=== PATIENT | female | born 1945 | race Caucasian/White ===

== ENCOUNTER → 2018-07-09 09:49 | Outpatient (CLI) | payer MEDICARE, SELFPAY ==
[2018-01-21 08:55] VITALS: BMI 23.1
[2018-02-18 09:07] VITALS: BMI 23.1
--- NOTE | 2018-07-10 11:17 | PFT ---
INTRODUCTION: The patient is a 73-year-old female that presents for pulmonary function testing secondary to a diagnosis of asthma. Respiratory therapy reports good patient effort. Bronchodilators were used during testing. INTERPRETATION: Forced expiration spirometry demonstrates the presence of a mild large airways obstructive ventilatory defect. There was no significant response to aerosolized bronchodilators. Spirograms are of good quality and do not plateau indicating slow emptying of the lungs. Body plethysmography was performed and reveals lung volumes to be within normal limits. Diffusing capacity by single breath CO is also within normal limits. There has been stability in the patient's PFTs dating back to July 2017. IMPRESSION: These pulmonary function studies demonstrate the presence of an irreversible mild large airways obstructive ventilatory defect. Lung volumes and diffusing capacity are preserved.
== END ==
PROVIDERS: Family Provider Family Medicine; PCP Family Medicine; Referring Provider Nurse Practitioner Acute Care; Visit Provider Nurse Practitioner Acute Care
DX: J45.909 Unspecified asthma, uncomplicated (principal)
CPT/HCPCS: 94060; 94726; 94729

== ENCOUNTER 2018-11-29 05:26 | Day surgery (SDC) | payer MEDICARE, SELFPAY ==
[2018-02-18 09:07] VITALS: BMI 23.1
[2018-09-10 08:14] VITALS: BMI 23.6
[2018-11-29] VITALS (10 sets, daily range): BP systolic 83–144; BP diastolic 44–68; PULSE 60–75; RESP 16; TEMP 36.2–36.6; O2SAT 95–100; BMI 22.9
--- NOTE | 2018-11-29 06:00 | PCM.HP.STD ---
Problem List (1) Personal history of colonic polyps Status: Acute History of Present Illness Date of Admission: 11/29/18 The patient is a 73 year old F who I saw back in the office in September. She presented at that time because she has a personal history of colon polyps. October 2017 she had been diagnosed with breast cancer. She lost track of her colonoscopies. She has had 3 previous colonoscopies. Most recent was November 12, [address] Joseph Hong. A cecal tubular adenoma was resected. She also has diverticulosis. She presents now for surveillance colonoscopy Past Medical History Past Medical History (Chronic Problems): Chronic Problems (Last Reviewed 09/10/18 @ 08:13 by Kim Meneses) Seasonal allergies (Chronic) Mitral valve prolapse (Chronic) Arthritis (Chronic) High cholesterol (Chronic) Dyspnea (Chronic) Cough (Chronic) Asthma (Chronic) Medical History: Medical History (Last Reviewed 09/10/18 @ 08:13 by Kim Meneses) Personal history of colonic polyps (Acute) Z86.010 History of breast cancer (Resolved) Z85.3 Thrush, oral (Acute) B37.0 Seasonal allergies (Chronic) J30.2 Mitral valve prolapse (Chronic) I34.1 Arthritis (Chronic) M19.90 High cholesterol (Chronic) E78.00 Dyspnea (Chronic) R06.00 Cough (Chronic) R05 Asthma (Chronic) J45.909 Allergies codeine Allergy (Severe, Verified 09/10/18 08:14) cyclobenzaprine [From Flexeril] Allergy (Severe, Verified 09/10/18 08:14) Penicillins Allergy (Severe, Verified 09/10/18 08:14) pineapple Allergy (Severe, Verified 09/10/18 08:14) Home Medications: Ambulatory Orders Medication Instructions Recorded Lactobacillus acidophilus capsule 10 mg PO QDAY 07/23/17 aspirin 81 mg tablet,delayed 81 mg PO QDAY 07/23/17 release calcium carbonate 500 mg (1,250 1 tab PO BID 07/23/17 mg)-vitamin D3 200 unit tablet fish oil-dha-epa 1,200 mg-144 1 cap PO DAILY 07/23/17 mg-216 mg capsule glucosamine OYw-ekd-oktfnurtzgc 1 tab PO DAILY 07/23/17 500 mg-167 mg-400 mg tablet montelukast 10 mg tablet 10 mg PO QHS 07/23/17 multivitamin,po-emix-fvwcwizx 1 tab PO QDAY 07/23/17 tablet pravastatin 40 mg tablet 40 mg PO QHS 07/23/17 sour baez extract 1,000 mg 1,000 mg PO DAILY 07/23/17 capsule verapamil ER (SR) 120 mg 120 mg PO QDAY 07/23/17 tablet,extended release Fluticasone/Salmeterol [Advair 1 ea IH BID 01/21/18 100-50 Diskus] Levocetirizine Dihydrochloride 5 mg PO DAILY 01/21/18 [Xyzal] Anastrozole [Arimidex] 1 mg PO DAILY 04/18/18 albuterol sulfate 90 mcg/actuation 90 mcg INHALATION Q4H PRN #1 ea 07/24/18 breath activated powder inhaler Surgical History: Surgical History (Last Reviewed 09/10/18 @ 08:13 by Kim Meneses) History of lumpectomy of left breast (Acute) Z98.890 10/2017 History of foot surgery (Resolved) Z98.890 Left footX2 History of hysterectomy (Resolved) Z98.890, Z90.710 1997 History of appendectomy (Resolved) Z98.890, Z90.49 1966 Smoking Status: Never smoker Review of Systems Constitutional: Denies: Anorexia HEENT: Denies: Difficulty Swallowing Cardiovascular: Denies: Chest Pain Respiratory: Denies: Cough, Hemoptysis Gastrointestinal: Denies: Abdominal Pain Endocrine: Denies: Change in Body Habitus VTE Information - Inpt Only VTE Present on Admission: No - Physical Exam General: Alert, Oriented x3, Cooperative, No apparent distress HEENT: Atraumatic Neck: Supple Lungs: Clear to auscultation Cardiovascular: Regular rate, Regular Rhythm Abdomen: Bowel Sounds Present, Soft, Non Tender Psych/Mental Status: Normal Affect Vital Signs Temp Pulse Resp BP Pulse Ox 97.9 F 73 16 116/68 100 11/29/18 05:46 11/29/18 05:46 11/29/18 05:46 11/29/18 05:46 11/29/18 05:46 Oxygen Delivery Method Room Air Weight: 138 lb Body Mass Index (BMI) 22.9 Assessment/Plan All Active Problems (Last Reviewed 09/10/18 @ 08:13 by Kim Meneses) Personal history of colonic polyps (Acute) History of lumpectomy of left breast (Acute) History of breast cancer (Resolved) Thrush, oral (Acute) History of foot surgery (Resolved) History of hysterectomy (Resolved) History of appendectomy (Resolved) Patient with a personal history of colon polyps. Recommend colonoscopy with possible biopsy or polypectomy is indicated. She has had an opportunity to ask and have questions answered. We will proceed as noted. Kumar Mixon M.D., F.A.C.S.
--- NOTE | 2018-11-29 06:52 | OP.ENDO_ITS ---
11/29/2018 Ashkan Ortiz Md Re : Colonoscopy procedure for Juhi Rossi Dear Angel This procedure was performed on Thursday, November 29, 2018. My impressions and recommendations are as follows: Impressions : - Hemorrhoids found on perianal exam. - Diverticulosis in the sigmoid colon. - The examination was otherwise normal. - No specimens collected. Recommendations : - Discharge patient to home. - Resume previous diet. - Continue present medications. - Repeat colonoscopy in 5 years for surveillance. My findings are described in the full procedure note, which is enclosed. If I can be of further assistance, please feel free to contact me at Doctor phone number(s): Work: . Sincerely, Kumar Mixon MD 11/29/2018 6:52:14 AM This report has been signed electronically.
== END 2018-11-29 08:21 | disposition home or self-care (01) ==
LOC: EN 05:26 → AC 05:27
PROVIDERS: Family Provider Family Medicine; PCP Family Medicine; Referring Provider Surgery; Visit Provider Surgery
PROC: 0DJD8ZZ Inspection of Lower Intestinal Tract, Via Natural or Artificial Opening Endoscopic (ICD-10-PCS; CPT 45378; principal; 2018-11-29 06:25)
DX: Z12.11 Encounter for screening for malignant neoplasm of colon (principal); K57.30 Diverticulosis of large intestine without perforation or abscess without bleeding; K64.9 Unspecified hemorrhoids; I34.1 Nonrheumatic mitral (valve) prolapse; E78.00 Pure hypercholesterolemia, unspecified; M19.90 Unspecified osteoarthritis, unspecified site; J45.909 Unspecified asthma, uncomplicated; Z79.82 Long term (current) use of aspirin; Z79.899 Other long term (current) drug therapy; Z86.010 Personal history of colon polyps; Z85.3 Personal history of malignant neoplasm of breast
CPT/HCPCS: G0105; 99152; 99153; J7120

== ENCOUNTER → 2019-01-23 08:56 | Outpatient (CLI) | payer MEDICARE, SELFPAY ==
[2018-02-18 09:07] VITALS: BMI 23.1
[2019-01-08 08:41] VITALS: BMI 23.8
--- NOTE | 2019-01-23 09:03 | BI_ITS ---
MAMMOGRAPHY - UNILATERAL DIAGNOSTIC: LEFT BREAST REASON FOR EXAM: Female, 73 years old. Left breast pain at the surgical site. PERTINENT HISTORY: Personal history of breast cancer. Status post left lumpectomy. TECHNIQUE: Digital unilateral breast nessa (3D mammographic acquisition) in the CC and MLO projections. 2-D mediolateral oblique (MLO) and craniocaudad (CC) views of both breasts were obtained. CAD: Full Field Digital Mammography with Computer Added Detection was performed. COMPARISON: Comparison is made with prior outside examination dated September 03, 2018. FINDINGS: Breast Composition: There are scattered areas of fibroglandular density. Surgical clips are seen in the inferior medial anterior aspect of the left breast and keep with history of prior lumpectomy. At this time, there is evidence of increased density at the surgical site with this skin thickening overlying the biopsy site. Correlation with ultrasound is recommended. No other significant abnormalities are identified. BI/DIAG MAMM W/CAD, UNILAT IMPRESSION: Status post lumpectomy in the inferior medial aspect of the left breast. Since prior study, there has been increased density at the operative site. Correlation with ultrasound is recommended. ASSESSMENT CATEGORY: BIRADS Category 0: Incomplete. Need additional imaging evaluation. A letter regarding these results will be sent to the patient by the facility within 30 days. Approximately 10% of breast cancers are not detected by mammography. A normal mammogram should not delay biopsy of a clinically suspicious abnormality. Electronically Signed: Cristhian Lee, at 11:25 EDT , Service support ,
--- NOTE | 2019-01-23 09:06 | US_ITS ---
STUDY: ULTRASOUND BREAST - LEFT REASON FOR EXAM: Female, 73 years old. Pain in the left breast. TECHNIQUE: Axial and longitudinal images of the LEFT breast were performed with a high resolution ultrasound transducer. COMPARISON: Comparison is made with prior mammogram done earlier in the day. FINDINGS: LEFT Breast: The incision site was examined by ultrasound. No solid or cystic mass lesion is seen. Mild edematous changes. US/Breast Limited Unilateral IMPRESSION: Mild edematous changes at the surgical site. No sonographic solid or cystic mass lesion is seen. ASSESSMENT CATEGORY: BIRADS Category 2: Benign. A letter regarding these results will be sent to the patient by the facility within 30 days. Electronically Signed: Cristhian Lee, at 11:25 EDT , Service support ,
== END ==
PROVIDERS: Family Provider Family Medicine; PCP Family Medicine
DX: N64.4 Mastodynia (principal); Z85.3 Personal history of malignant neoplasm of breast
CPT/HCPCS: 76642; 77061; 77065; G0279

== ENCOUNTER → 2019-07-08 07:54 | Outpatient (CLI) | payer MEDICARE, SELFPAY ==
[2018-02-18 09:07] VITALS: BMI 23.1
[2019-01-08 08:41] VITALS: BMI 23.8
[2019-05-30 12:51] VITALS: BMI 23.8
--- NOTE | 2019-07-08 10:14 | PFTCOMP ---
COMPLETE PULMONARY FUNCTION TEST INTERPRETATION Brief HPI: Patient is a 74 year old female, currently under the care of myself, who presents to [facility] for complete pulmonary function tests secondary to diagnosis of asthma. Respiratory therapist reports good effort and reproducible results. Interpretation: Forced expiration spirometry shows a mild large airways obstructive ventilatory defect with an FEV1 of 105% predicted. There is no significant bronchodilator response by strict ATS criteria. Spirograms are of good quality and plateau slowly, indicating slowly emptying areas of the lungs. The respiratory flow volume loop shows decreased expiratory flow rates at all lung volumes consistent with airway obstruction. Lung volumes by body plethysmography show an elevated total lung capacity at 6.02 L, 120% predicted. All other lung volumes are increased symmetrically. Diffusion capacity by carbon monoxide is normal at 91% predicted. The airway resistance is normal. Compared to previous pulmonary function tests from 07/09/2018, there has been no significant change. Impression: Irreversible mild large airways obstructive ventilatory defect resulting in hyperinflation.
== END ==
PROVIDERS: Family Provider Family Medicine; PCP Family Medicine; Referring Provider Nurse Practitioner Acute Care; Visit Provider Nurse Practitioner Acute Care
DX: J45.909 Unspecified asthma, uncomplicated (principal)
CPT/HCPCS: 94060; 94726; 94729

== ENCOUNTER → 2020-05-18 08:20 | Outpatient (CLI) | payer MEDICARE, SELFPAY ==
[2018-02-18 09:07] VITALS: BMI 23.1
[2020-03-16 09:28] VITALS: BMI 22.6
--- NOTE | 2020-05-18 08:25 | BD_ITS ---
STUDY: DUAL ENERGY X-RAY ABSORPTIOMETRY / DXA REASON FOR EXAM: Female, 75 years old. MOP MAN- SURGICAL AT 52 -- CURRENTLY ON ANASTROZOLE FOR BREAST CANCER -- USES STEROID INHALER DAILY -- HX OF TAKING FOSAMAX -- DOES MODERATE AMOUNT OF EXERCISE -- AIDAN OF 1.25 INCHES TECHNIQUE: Bone Mineral Density (BMD) measurements of lumbar spine and bilateral hips were obtained. COMPARISON: None. FINDINGS: Lumbar Spine (L1-L4): g/cm2 (1.112) / T-score (-0.6) / Z-score (1.1) Findings are suggestive of normal bone density with a low fracture risk. Increased kyphosis. Left Femur Total: g/cm2 (0.761) / T-score (-2.0) / Z-score (-0.3) Left Femoral Neck: g/cm2 (0.811) / T-score (-1.6) / Z-score (0.2) Right Femur Total: g/cm2 (0.635) / T-score (-3.0) / Z-score (-1.3) Right Femoral Neck: g/cm2 (0.675) / T-score (-2.6) / Z-score (-0.8) BD/Dexa Bone Density Study IMPRESSION: The patient is considered osteoporotic as outlined below according to World Arvind Organization (WHO) criteria with a high fracture risk. Reference Information: The T-score is the number of standard deviations above or below the standard which is normal for young adults at their peak bone mineral density. The World Health Organization (WHO) interprets the T-scores as follows: Above -1 Normal bone density Between -1 and -2.5 Osteopenia Equal to / or below -2.5 Osteoporosis As a practical clinical guideline, osteopenia may be graded as follows: Mild -1 through -1.5 Moderate -1.6 through -2.0 Severe -2.1 through -2.4 The Z-score is the number of standard deviations above or below age-matched controls. A Z-score of less than -1.5 would be considered abnormal. References: 1. NIH Osteoporosis and Related Bone Diseases www osteo.org 2. International Society for Clinical Densitometry www iscd.org 3. National Osteoporosis Foundation www nof.org Electronically Signed: Cristhian Lee, at 15:49 EDT , Service support ,
== END ==
PROVIDERS: PCP Family Medicine; Referring Provider Internal Medicine Medical Oncology; Visit Provider Internal Medicine Medical Oncology
DX: Z78.0 Asymptomatic menopausal state (principal)
CPT/HCPCS: 77080

== ENCOUNTER 2020-10-26 09:20 | Observation (INO) | payer MEDICARE, SELFPAY ==
[2018-02-18 09:07] VITALS: BMI 23.1
[2020-08-09 10:59] VITALS: BMI 22.6
[2020-10-26] VITALS (10 sets, daily range): BP systolic 101–154; BP diastolic 61–88; PULSE 68–78; RESP 16–19; TEMP 36.3–36.8; O2SAT 96–100; BMI 21.6; BMI 21.7
--- NOTE | 2020-10-26 09:33 | EKG12_ITS ---
Test Reason : CHEST TIGHTNESS Blood Pressure : / mmHG Vent. Rate : 077 BPM Atrial Rate : 077 BPM P-R Int : 138 ms QRS Dur : 086 ms QT Int : 366 ms P-R-T Axes : 084 058 020 degrees QTc Int : 414 ms Normal sinus rhythm Nonspecific ST abnormality Abnormal ECG Confirmed by AMADOU FERNANDES, SANDRA ([id number]), platform mill supervisor LOUANN ALTAMIRANO ([id number]) on 10/28/2020 12:37:34 PM Referred By: MR Confirmed By:SMOOTH TOBAR MD
--- NOTE | 2020-10-26 09:33 | RAD_ITS ---
STUDY: X-RAY CHEST REASON FOR EXAM: Female, 75 years old. Chest pain TECHNIQUE: Single AP portable view of the chest. COMPARISON: None. FINDINGS: EKG electrodes are seen. Surgical clips are seen overlying the left breast. Hyperinflation. The lungs are clear. There is no demonstrated pleural abnormality. Normal size heart. Normal mediastinum and humberto. Normal visualized pulmonary arteries. There is atherosclerotic calcification of the aortic arch with tortuosity. There are diffuse degenerative changes of the visualized thoracic spine. Normal visualized ribs, clavicles, and shoulders. There is no demonstrated abnormality of the visualized soft tissue structures of the upper abdomen. RAD/Chest 1 View (Portable) IMPRESSION: Hyperinflation. The lungs are clear. Electronically Signed: Cristhian Lee MD at 11:28 EDT , Service support ,
--- NOTE | 2020-10-26 09:34 | ED.DCSUM_ITS ---
- ER Visit Summary Date of Service: 10/26/20 Chief Complaint: [Chest pain] History of Present Illness: The patient is a 75 F [emergency department chest discomfort that she initially noticed around 3 AM. Patient states that her significant other tripped over her cane which woke her up and then she noted th is pressure in her chest. Patient states that she thinks it went away but she was able to fall asleep. She woke up this morning and initially did not have the discomfort but eventually developed more tightness that then resolved and now came back. Currently she describes the discomfort as a 4 out of 10. She denies any radiation of the discomfort. Patient did feel somewhat sweaty in the middle of the night but felt it may have been just her age and being on hormone blockers. Patient denies recent travel or surgery. She has never had a heart attack. Her last stress test was more than 5 years ago. Patient does have history of hypertension. She does not smoke. No significant family history of heart disease.] Physical Examination: [HEENT-PERRLA, EOMI. Cranial nerves II through XII grossly intact. TMs clear. Mucous membranes moist. No adenopathy. Cardiovascular-regular rate and rhythm without murmur or ectopy Lungs-clear to auscultation, chest wall stable without crepitus or subcu emphysema Abdomen-normoactive bowel sounds, soft, nontender, no rebound or rigidity, no peritoneal signs. Extremities-intact ?4, normal range of motion, normal pulses, atraumatic] Test Results: [EKG obtained arrival shows sinus rhythm with a ventricular rate of 77 bpm with some nonspecific ST changes noted. There is some subtle ST depression in V4 V5 and V6 when compared with prior EKG from 2008. CBC with differential is normal. Chemistries unremarkable. Troponin was less than 0.015. Chest x-ray 1 view obtained interpreted by myself as hyperinflation otherwise no acute disease process noted.] Emergency Department Course and Treatment: [IV line established on arrival. Patient received aspirin p.o. Patient received sublingual nitro which she states most of her discomfort had at that point resolved.] Treatment Plan: [Admit for further work-up and evaluation of her chest pain as her heart score is a 5.] Disposition: [Admit] Impression: [Chest pain-rule out acute coronary syndrome] This note was generated with Dragon dictation software. It may contain incorrect words, spelling, and punctuation that were not noted in review of the chart prior to signing ED Disposition - Plan for ED Patient: Referrals: Ashkan Ortiz MD [Primary Care Provider] -
[2020-10-26 09:46] LABS: Absolute Lymphocyte Count 1.77 X10^3/uL (0.83-4.51); Absolute Neutrophil Count 6.2 X10^3/uL (2.0-7.7); Basophil# 0.06 X10^3/uL; Basophil% 0.7 % (0-1); Hematocrit 45.4 % (37-47); Hemoglobin 14.8 g/dL (12.0-15.0); Lymphocyte # 1.77 X10^3/ul (4.0); Lymphocyte % 20.6 % (19-41); Mean Corp Hgb Conc 32.6 g/dL (32-36); Mean Corpuscular Hgb 30.2 pg (27.0-32.0); Mean Corpuscular Volume 92.7 fL (81-99); Mean Platelet Vol. 9.8 fl (6.2-12.0); Monocyte# 0.58 X10^3/uL; Monocyte% 6.7 % (0-10); NRBC Flagged by Analyzer 0 % (0-5); Neutrophil # 6.16 X10^3/uL (2.7-7.7); Neutrophil % 71.7 % (47-70); Platelet Count 292 K/mm3 (150-450); RBC Distribution Width CV 13.2 % (11.6-14.6); RBC Distribution Width SD 45.1 fl (35.1-43.9); White Blood Count 8.6 K/mm3 (4.4-11.0)
[2020-10-26 10:04] LABS: Anion Gap 5 (5-15); BUN 27 mg/dL (7-18); BUN/Creat Ratio 34.4 RATIO (10-20); Calcium,Total 9.2 mg/dL (8.5-10.1); Chloride 107 mmol/L (98-107); Creatinine, Serum 0.78 mg/dL (0.55-1.02); EST Glomerular Filtration Rate 76 mL/min (>60); Est Glom Filt Rate - Afr Amer 92 mL/min (>60); Estimated Creatinine Clearance 45.09 ml/min; Glucose 90 mg/dL (74-106); Potassium 4.5 mmol/L (3.5-5.1); Sodium Level 140 mmol/L (136-145)
[2020-10-26] MEDS: 0.9% Normal Saline 1,000 ML 150 ML IV (10:07)
[2020-10-26] MEDS: Aspirin 81 MG TAB.CHEW 324 MG PO (10:08)
[2020-10-26] MEDS: Nitroglycerin SL (ED/IMG/CATH) 0.4 MG TABLET SL (10:09)
--- NOTE | 2020-10-26 11:07 | NURSING ---
ALFREDOU OBS ANGELICA PAPPAS
--- NOTE | 2020-10-26 15:21 | EKG12_ITS ---
Test Reason : AM EKG Blood Pressure : / mmHG Vent. Rate : 066 BPM Atrial Rate : 066 BPM P-R Int : 158 ms QRS Dur : 088 ms QT Int : 412 ms P-R-T Axes : 086 051 031 degrees QTc Int : 431 ms Normal sinus rhythm Normal ECG When compared with ECG of 26-OCT-2020 13:39, MANUAL COMPARISON REQUIRED, DATA IS UNCONFIRMED Confirmed by AMADOU FERNANDES, SANDRA ([id number]), video effects editor LOUANN ALTAMIRANO ([id number]) on 10/28/2020 12:41:50 PM Referred By: ELYSE Confirmed By:SMOOTH TOBAR MD
--- NOTE | 2020-10-26 15:29 | PCM.HP.STD ---
Problem List (1) Chest tightness Status: Acute History of Present Illness Date of Admission: 10/26/20 Chief Complaint: Chest tightness The patient is a 75 year old F was seen in the emergency room at [facility] with chief complaint of chest tightness which she says started approximately 3:30 AM, it continued for an unknown length of time and she fell back to sleep and then she awoke later with the same chest tightness. Patient denies any radiation of discomfort into her neck, jaw, or down her arm. Patient states that she has been coughing intermittently and bringing up some yellow sputum but she is not had any chills or fever. She feels she may have been wheezing at home. Patient has a history of asthma. Work-up in the emergency room included an EKG which showed a normal sinus rhythm with nonspecific ST-T wave changes-no ischemic changes were noted, cardiac enzymes were unremarkable, CBC was unremarkable, BUN was slightly elevated at 27, and troponin was normal. Patient's chest x-ray was unremarkable. Patient was placed in observation status on PCU, cardiac enzymes will be cycled, if these remain normal she will undergo an exercise nuclear stress test tomorrow. Past Medical History Past Medical History (Chronic Problems): Chronic Problems (Last Reviewed 08/09/20 @ 11:00 by Drik) Seasonal allergies (Chronic) Mitral valve prolapse (Chronic) Arthritis (Chronic) High cholesterol (Chronic) Dyspnea (Chronic) Cough (Chronic) Asthma (Chronic) Medical History: Medical History (Last Reviewed 08/09/20 @ 11:00 by Drik) Fibroids (Acute) D21.9 Personal history of colonic polyps (Acute) Z86.010 History of breast cancer (Resolved) Z85.3 Seasonal allergies (Chronic) J30.2 Mitral valve prolapse (Chronic) I34.1 Arthritis (Chronic) M19.90 High cholesterol (Chronic) E78.00 Dyspnea (Chronic) R06.00 Cough (Chronic) R05 Asthma (Chronic) J45.909 Allergies codeine Allergy (Severe, Verified 10/26/20 09:23) cyclobenzaprine [From Flexeril] Allergy (Severe, Verified 10/26/20 09:23) Penicillins Allergy (Severe, Verified 10/26/20 09:23) pineapple Allergy (Severe, Verified 10/26/20 09:23) Home Medications: Ambulatory Orders Medication Instructions Recorded Lactobacillus acidophilus 10 mg PO QDAY 07/23/17 fish oil-dha-epa 1,200 mg-144 1 cap PO DAILY 07/23/17 mg-216 mg capsule glucosamine PVv-obk-gblqpuhpqkd 1 tab PO DAILY 07/23/17 500 mg-167 mg-400 mg tablet montelukast 10 mg tablet 10 mg PO QHS 07/23/17 pravastatin 40 mg tablet 40 mg PO QHS 07/23/17 sour baez extract 1,000 mg 1,000 mg PO DAILY 07/23/17 capsule verapamil 120 mg tablet,extended 120 mg PO QHS 07/23/17 release Levocetirizine Dihydrochloride 5 mg PO DAILY 01/21/18 [Xyzal] Anastrozole [Arimidex] 1 mg PO DAILY 04/18/18 fluticasone 250 mcg-salmeterol 50 1 inh INHALATION BID 01/28/19 mcg/dose blistr powdr for inhalation albuterol sulfate 90 mcg/actuation 90 mcg INHALATION Q4H PRN #1 ea 05/30/19 breath activated powder inhaler Vitamin A/Vit C/Zinc/Propolis 15 mg PO DAILY 09/27/20 [Zinc 15 mg Lozenges] Loratadine 10 mg PO DAILY 10/26/20 Surgical History: Surgical History (Last Reviewed 08/09/20 @ 11:00 by Ines Lopez) History of lumpectomy of left breast (Resolved) Z98.890 10/2017 History of foot surgery (Resolved) Z98.890 Left footX2 History of hysterectomy (Resolved) Z98.890, Z90.710 1996 History of appendectomy (Resolved) Z98.890, Z90.49 1966 Surgical History: noncontributory Psychiatric History: No pertinent psych hx PUBLIC INFORMATION RELATIONS MANAGER History: No pertinent PUBLIC INFORMATION RELATIONS MANAGER history Lives: Spouse/ Significant Other Smoking Status: Never smoker Tobacco Use: Non-smoker Alcohol: None Drugs: None - *Family History Maternal Family History: Family History (Last Reviewed 08/09/20 @ 11:00 by Ines Lopez) Father Cancer Hyperlipidemia Throat cancer Pulmonary embolism Mother Heart disease Hyperlipidemia Throat cancer Pulmonary embolism Aunt Hyperlipidemia Throat cancer Pulmonary embolism History Items: Unknown - Patient states her mother from either a blood clot or an CO, it was unsure which Paternal Family History: Family History (Last Reviewed 08/09/20 @ 11:00 by Ines Lopez) Father Cancer Hyperlipidemia Throat cancer Pulmonary embolism Mother Heart disease Hyperlipidemia Throat cancer Pulmonary embolism Aunt Hyperlipidemia Throat cancer Pulmonary embolism History Items: Cancer - Throat cancer Review of Systems Constitutional: Denies: Anorexia, Chills, Fever, Night Sweats, Malaise, Weakness, Weight Change Eyes: Denies: Cataracts, Conjunctivae Inflammation, Double vision, Drainage, Redness, Vision Change HEENT: Denies: Difficulty Swallowing, Dysphasia, Ear Pain, Eye Pain, Hearing Changes, Nasal bleeding, Nasal Congestion Cardiovascular: Reports: Chest Tightness. Denies: Claudication, Chest Pressure, Edema, Heaviness, Palpitations Respiratory: Reports: Cough, Sputum production. Denies: Hemoptysis, Pleuritic Pain, Shortness of Breath, Shortness of breath at rest, Shortness of breath upon exertion Gastrointestinal: Denies: Abdominal Pain, Constipation, Diarrhea, Hematemesis, Hematochezia, Nausea, Melena, Vomiting Genitourinary: Denies: Dysuria, Frequency, Hematuria, Hesitancy, Urgency Musculoskeletal: Denies: Foot Pain, Hand Pain, Joint Pain, Joint stiffness, Joint swelling, Joint Tenderness, Leg Pain Skin: Denies: Dryness, Jaundice, Pruritis, Rash Neurological: Denies: Blurred vision, Double vision, Change in Speech, Slurred speech, Difficulty swallowing, Focal weakness, Headaches, Incoordination, Numbness, Tingling Psychiatric: Denies: Anxiety, Depression, Homicidal Ideations, Suicidal Ideations Endocrine: Denies: Change in Body Habitus, Heat/ Cold Intolerance, Polydipsia, Polyuria Hematologic/ Lymphatic: Denies: Adenopathy, Anemia, Easy Bruising, Easy Bleeding, Petechiae, Purpura VTE Information - Inpt Only VTE Present on Admission: No VTE Mechan Device Prophylaxis: None VTE Pharm Prophylaxis ordered?: Yes Patient Problems: Active and Suspected Problems (Last Reviewed 08/09/20 @ 11:00 by Ines Lopez) Chest tightness (Acute) - Physical Exam Vitals/I&O's: Vital Signs Temp Pulse Resp BP Pulse Ox 98.1 F 78 18 144/76 H 100 10/26/20 12:20 10/26/20 12:20 10/26/20 12:20 10/26/20 12:20 10/26/20 12:20 Oxygen Delivery Method Room Air Weight: 59.2 kg Body Mass Index (BMI) 21.7 Intake and Output for Last 24 Hours 10/24/20 10/25/20 10/26/20 23:59 23:59 23:59 Intake Total 175 / 175 Balance 175 / 175 General: Alert, Oriented x3, Cooperative, No apparent distress, Well developed, Well nourished HEENT: Atraumatic, PERRLA, EOMI, Normocephalic Oral: Moist Mucosa Neck: Supple, No JVD, Negative Carotid Bruits, Trachea Midline, Thyroid Normal Size and Texture Lungs: Clear to auscultation, Normal air movement, No rhonchi, No wheeze, No rales Cardiovascular: Regular rate, Regular Rhythm, Normal S1, Normal S2, No murmurs, PMI Normal, No rub noted Abdomen: Bowel Sounds Present, Soft, Non Tender, Non-Distended Extremities: No clubbing, No cyanosis, No edema, Capillary Refill Less than 3 Seconds Skin: No rashes, No breakdown Musculoskeletal: No Tenderness to Palpation of Joints or Extremities Neurological: Cranial nerves II-XII grossly intact, Neuro grossly intact, Sensory exam intact to light touch and pain, Coordination normal Psych/Mental Status: Normal Affect, Appropriate, Alert and oriented to time, place, person, mood and affect Laboratory Results 10/26/20 09:40: WBC 8.6, RBC 4.90, Hgb 14.8, Hct 45.4, MCV 92.7, MCH 30.2, MCHC 32.6, RDW Std Deviation 45.1 H, RDW Coeff of Jerry 13.2, Plt Count 292, MPV 9.8, Immature Gran % (Auto) 0.300, Neut % (Auto) 71.7 H, Lymph % (Auto) 20.6, [place] % (Auto) 6.7, Eos % (Auto) 0.0, Baso % (Auto) 0.7, Absolute Neuts (auto) 6.2, Absolute Lymphs (auto) 1.77, Nucleated RBC % 0 10/26/20 09:40: Sodium 140, Potassium 4.5, Chloride 107, Carbon Dioxide 28.0, Anion Gap 5, BUN 27 H, Creatinine 0.78, Estim Creat Clear Calc 45.09, Est GFR (MDRD) Af Amer 92, Est GFR (MDRD) Non-Af 76, BUN/Creatinine Ratio 34.4 H, Glucose 90, Calcium 9.2, Troponin I < 0.015 10/26/20 13:01: Troponin I < 0.015 10/26/20 15:10: Troponin I Pending Current Medications Acetaminophen (Acetaminophen 325 Mg Tablet) 650 mg PO Q6H PRN PRN PRN Reason: Pain Score 1-10/Temp > 100.7 F Anastrozole (Anastrozole 1 Mg Tablet) 1 mg PO DAILY TOO Aspirin (Aspirin 81 Mg Tab.Chew) 81 mg PO DAILY@0800 TOO Sodium Chloride () 250 mls @ 15 mls/hr IV .[id number] PRN PRN Reason: Saline Flush Sodium Chloride () 250 mls @ 15 mls/hr IV .[id number] PRN PRN Reason: Additional IVPB Infusion Montelukast Sodium (Montelukast 10 Mg Tablet) 10 mg PO QHS TOO Morphine Sulfate (Morphine 4 Mg/Ml Syringe) 4 mg IV Q3H PRN PRN PRN Reason: Pain Score 6-10 Pravastatin Sodium (Pravastatin 40 Mg Tablet) 40 mg PO QHS TOO Sodium Chloride (0.9% Saline Lock 10 Ml Syringe) 10 - 40 ml IV UD PRN PRN Reason: SALINE FLUSH Temazepam (Temazepam 15 Mg Capsule) 15 mg PO QHS PRN PRN PRN Reason: INSOMNIA Verapamil HCl (Verapamil Sr 240 Mg Tablet) 120 mg PO HS TOO Assessment/Plan All Active Problems (Last Reviewed 08/09/20 @ 11:00 by Ines Lopez) Chest tightness (Acute) Fibroids (Acute) Personal history of colonic polyps (Acute) History of lumpectomy of left breast (Resolved) History of breast cancer (Resolved) History of foot surgery (Resolved) History of hysterectomy (Resolved) History of appendectomy (Resolved) #1 chest tightness-etiology unclear, again patient was placed in observation status on PCU, cardiac enzymes will be cycled, if these remain normal she will have an exercise nuclear stress test tomorrow. #2 asthma #3 hyperlipidemia #4 history of breast cancer #5 history of mitral valve prolapse OBSV E&M: 58581 Initial observation care L3
[2020-10-26] MEDS: Verapamil SR 240 MG Tablet 120 MG PO (20:33)
[2020-10-26] MEDS: Montelukast 10 MG Tablet PO (20:33)
[2020-10-26] MEDS: Pravastatin 40 MG Tablet PO (20:33)
[2020-10-26] MEDS: Acetaminophen 325 MG Tablet 650 MG PO (20:42)
[2020-10-26] MEDS: Temazepam 15 MG Capsule PO (22:47)
[2020-10-27] VITALS (9 sets, daily range): BP systolic 124–128; BP diastolic 63–75; PULSE 64–78; RESP 16–18; TEMP 36.4–36.6; O2SAT 94–100
--- NOTE | 2020-10-27 05:55 | EKG12_ITS ---
Test Reason : CP REPEAT Blood Pressure : / mmHG Vent. Rate : 080 BPM Atrial Rate : 080 BPM P-R Int : 148 ms QRS Dur : 080 ms QT Int : 366 ms P-R-T Axes : 083 037 008 degrees QTc Int : 422 ms Normal sinus rhythm Low voltage QRS Nonspecific ST abnormality Abnormal ECG When compared with ECG of 19-JUL-2009 14:23, No significant change was found Confirmed by AMADOU FERNANDES, SANDRA ([id number]), loan expeditor LOUANN ALTAMIRANO ([id number]) on 10/28/2020 12:43:39 PM Referred By: ELYSE Confirmed By:SMOOTH TOBAR MD
[2020-10-27] MEDS: Aspirin 81 MG TAB.CHEW PO (06:01)
--- NOTE | 2020-10-27 12:01 | NURSING ---
RNTRISH HUERTA Form: This screen writer to patient bedside, explained and reviewed HUERTA form with patient. Informed outpatient billing is determined by her insurance plan and that continual review is conducted to determine any changes in condition that may warrant inpatient stay. Patient acknowledges and denies any questions or concerns with with HUERTA form. Form signed and original placed in patient hard chart, patient provided a copy. YAJAIRA Josue
--- NOTE | 2020-10-27 13:49 | STRESSREP ---
Stress Test Report Exercise myocardial perfusion stress test. 75-year-old lady with a history of chest pain. Stress protocol: Resting EKG demonstrates normal sinus rhythm with a rate of 70 bpm normal intervals are noted resting blood pressure is 122/84 mmHg. The patient exercised according to the regular Kojo protocol for a total duration of 4 minutes the maximum heart rate attained was 144 bpm which was 97% of max impacted heart rate the maximum workload was 5.8 metabolic equivalents. At rest there were no ST or T wave changes noted to suggest ischemia. At peak exercise there was mild downsloping ST depression noted in lead III and upsloping ST changes noted in the lateral leads not meeting the criteria for ischemia. No clinical angina was noted the test was terminated due to attainment of target heart rate. Myocardial perfusion protocol. 10.9 mCi of technetium 99m sestamibi was injected at rest. The patient exercised according to regular Kojo protocol for 4 minutes and at peak exercise 32.4 mCi of technetium 99m sestamibi was injected stress images were obtained stress and rest images were reconstructed and compared in the short axis vertical long and horizontal long axis. Gated images were also obtained Perfusion SPECT analysis: Review of the stress images demonstrate normal uptake of tracer noted in all areas of the myocardium: The resting images similar demonstrate normal uptake of tracer noted in all areas of the myocardium. No areas of reversibility are noted to suggest ischemia no previous infarct is noted. Gated SPECT analysis: The gated ejection fraction is 79%. Conclusion: Normal exercise myocardial perfusion stress test at a moderate workload. No clinical angina noted. Preserved ejection fraction.
--- NOTE | 2020-10-27 14:18 | DCINST_ITS ---
- Discharge Diagnoses Current Active Problems: Current Active and Chronic Problems (Last Reviewed 08/09/20 @ 11:00 by Ines Lopez) Chest tightness (Acute) You will use the following diet at home:: No restrictions Your food should be the consistency of: Regular Your liquids should be the consistency of: Regular/Thin Discharge Activity: Return to Normal Activity Allergies/Adverse Reactions: Allergies codeine Allergy (Severe, Verified 10/26/20 09:23) cyclobenzaprine [From Flexeril] Allergy (Severe, Verified 10/26/20 09:23) Penicillins Allergy (Severe, Verified 10/26/20 09:23) pineapple Allergy (Severe, Verified 10/26/20 09:23) Medications to take at Discharge Lactobacillus acidophilus 10 mg PO QDAY 07/23/17 fish oil-dha-epa 1,200 mg-144 mg-216 mg capsule 1 cap PO DAILY 07/23/17 glucosamine SCx-ilj-udfselwtjml 500 mg-167 mg-400 mg tablet 1 tab PO DAILY 07/23/17 montelukast 10 mg tablet 10 mg PO QHS 07/23/17 pravastatin 40 mg tablet 40 mg PO QHS 07/23/17 sour baez extract 1,000 mg capsule 1,000 mg PO DAILY 07/23/17 verapamil 120 mg tablet,extended release 120 mg PO QHS 07/23/17 Levocetirizine Dihydrochloride [Xyzal] 5 mg PO DAILY 01/21/18 Anastrozole [Arimidex] 1 mg PO DAILY 04/18/18 fluticasone 250 mcg-salmeterol 50 mcg/dose blistr powdr for inhalation 1 inh INHALATION BID 01/28/19 albuterol sulfate 90 mcg/actuation breath activated powder inhaler 90 mcg INHALATION Q4H PRN #1 ea 05/30/19 Vitamin A/Vit C/Zinc/Propolis [Zinc 15 mg Lozenges] 15 mg PO DAILY 09/27/20 Loratadine 10 mg PO DAILY 10/26/20 Primary Care Physician: Ashkan Ortiz MD [Primary Care Provider] - Please follow up with your Primary Care Physician in: in 1-2 weeks for follow up Test Results: Test results from this visit will be discussed in further detail at your follow- up appointment, if applicable.
--- NOTE | 2020-10-27 14:42 | PHA.DC.MR ---
Pharmacy Service has performed discharge medication reconciliation for this patient. The patient's discharge medication list was reviewed for discrepancies and discrepancies were resolved. Home Medications Lactobacillus acidophilus 10 mg PO QDAY 07/23/17 fish oil-dha-epa 1,200 mg-144 mg-216 mg capsule 1 cap PO DAILY 07/23/17 glucosamine TFk-kkb-jsamcucxrku 500 mg-167 mg-400 mg tablet 1 tab PO DAILY 07/23/17 montelukast 10 mg tablet 10 mg PO QHS 07/23/17 pravastatin 40 mg tablet 40 mg PO QHS 07/23/17 sour baez extract 1,000 mg capsule 1,000 mg PO DAILY 07/23/17 verapamil 120 mg tablet,extended release 120 mg PO QHS 07/23/17 Levocetirizine Dihydrochloride [Xyzal] 5 mg PO DAILY 01/21/18 Anastrozole [Arimidex] 1 mg PO DAILY 04/18/18 fluticasone 250 mcg-salmeterol 50 mcg/dose blistr powdr for inhalation 1 inh INHALATION BID 01/28/19 albuterol sulfate 90 mcg/actuation breath activated powder inhaler 90 mcg INHALATION Q4H PRN #1 ea 05/30/19 Vitamin A/Vit C/Zinc/Propolis [Zinc 15 mg Lozenges] 15 mg PO DAILY 09/27/20 Loratadine 10 mg PO DAILY 10/26/20
[2020-10-27] MEDS: Anastrozole 1 MG TABLET PO (15:03)
--- NOTE | 2020-10-28 10:27 | DS.PCM_ITS ---
Discharge Date and Diagnosis - Problem List Patient Problems: Active and Suspected Problems (Last Reviewed 08/09/20 @ 11:00 by Ines Lopez) Chest tightness (Acute) Date of Admission: 10/26/20 Date of Discharge: 10/27/20 - Primary Discharge Diagnosis Acute Problems: Active Problems (Last Reviewed 08/09/20 @ 11:00 by Ines Lopez) #1 musculoskeletal chest discomfort #2 asthma #3 hyperlipidemia #4 history of breast cancer - Secondary Discharge Diagnosis Chronic Problems: Chronic Problems (Last Reviewed 08/09/20 @ 11:00 by Ines Lopez) Seasonal allergies (Chronic) Mitral valve prolapse (Chronic) Arthritis (Chronic) High cholesterol (Chronic) Dyspnea (Chronic) Cough (Chronic) Asthma (Chronic) Hospital Course and Treatment Operations: None Procedures: Nuclear stress test Summary of Care Provided: The patient is a 75 year old F seen in the emergency room at [facility] with chief complaint of chest tightness, work-up in the emergency room included an EKG which showed no evidence of acute ischemic changes, chest x-ray was unremarkable, and labs including troponin were unremarkable (except for slightly elevated BUN). Patient was placed in observation status on PCU, serial cardiac enzymes were performed and these remain normal, patient underwent an e xercise nuclear stress test which showed no evidence of reversible ischemia. On examination she appeared in good health and spirits, she does not appear to be in any distress. Vital signs as documented. Skin warm and dry and without overt rashes. Neck without JVD, thyroid appears normal, trachea is midline, neck is supple. Lungs clear, normal air movement was noted. Heart exam notable for regular rhythm, normal sounds and absence of murmurs, rubs or gallops. Abdomen unremarkable and without evidence of organomegaly, masses, or abdominal aortic enlargement, bowel sounds are present in all 4 quadrants, no abdominal tenderness was noted. Extremities nonedematous, no cyanosis was noted, no clubbing was noted. Neuro: Cranial nerves II through XII are grossly intact, no focal motor deficits were noted, sensation to light touch and pinprick is intact, motor exam 5/5 throughout. Psych: Patient is alert and oriented x3, she does not appear anxious or depressed, she does not appear agitated. Patient was discharged in stable condition on 10/26/2020 Patient Problems: Active and Suspected Problems (Last Reviewed 08/09/20 @ 11:00 by Ines Lopez) Chest tightness (Acute) - Physical Exam Vitals/I&O's: Vital Signs Temp Pulse Resp BP Pulse Ox 97.9 F 69 16 128/71 H 97 10/27/20 15:00 10/27/20 15:00 10/27/20 15:00 10/27/20 15:00 10/27/20 15:00 Oxygen Delivery Method Room Air Weight: 59.2 kg Body Mass Index (BMI) 21.7 Intake and Output for Last 24 Hours 10/26/20 10/27/20 10/28/20 23:59 23:59 23:59 Intake Total 175 / 415 1150 / 1150 Balance 175 / 415 1150 / 1150 Discharge Activity: Return to Normal Activity Home Medications: Medications to take at Discharge Lactobacillus acidophilus 10 mg PO QDAY 07/23/17 fish oil-dha-epa 1,200 mg-144 mg-216 mg capsule 1 cap PO DAILY 07/23/17 glucosamine TGb-jgq-rumnmzxzniw 500 mg-167 mg-400 mg tablet 1 tab PO DAILY 07/23/17 montelukast 10 mg tablet 10 mg PO QHS 07/23/17 pravastatin 40 mg tablet 40 mg PO QHS 07/23/17 sour baez extract 1,000 mg capsule 1,000 mg PO DAILY 07/23/17 verapamil 120 mg tablet,extended release 120 mg PO QHS 07/23/17 Levocetirizine Dihydrochloride [Xyzal] 5 mg PO DAILY 01/21/18 Anastrozole [Arimidex] 1 mg PO DAILY 04/18/18 fluticasone 250 mcg-salmeterol 50 mcg/dose blistr powdr for inhalation 1 inh INHALATION BID 01/28/19 albuterol sulfate 90 mcg/actuation breath activated powder inhaler 90 mcg INHALATION Q4H PRN #1 ea 05/30/19 Vitamin A/Vit C/Zinc/Propolis [Zinc 15 mg Lozenges] 15 mg PO DAILY 09/27/20 Loratadine 10 mg PO DAILY 10/26/20 Primary Care Physician: Ashkan Ortiz MD [Primary Care Provider] - Please follow up with your Primary Care Physician in: in 1-2 weeks for follow up Disposition: Home Minutes spent on discharge:: 30 Patient Condition:: Stable Medical Necessity - Tobacco Use Smoking Status: Never smoker Tobacco Use: Non-smoker Meaningful Use Info Meaningful Use Diagnoses (Choose all that apply): None applicable OBSV E&M: 86772 Observation care discharge
== END 2020-10-27 14:18 | disposition home or self-care (01) ==
LOC: ED 10:45 → PCU 11:58
PROVIDERS: Admitting Provider Internal Medicine; Emergency Provider Emergency Medicine; PCP Family Medicine; Visit Provider Internal Medicine
DX: R07.89 Other chest pain (principal); J45.909 Unspecified asthma, uncomplicated; E78.5 Hyperlipidemia, unspecified; M19.90 Unspecified osteoarthritis, unspecified site; I10 Essential (primary) hypertension; Z85.3 Personal history of malignant neoplasm of breast; Z79.899 Other long term (current) drug therapy; R94.31 Abnormal electrocardiogram [ECG] [EKG]
CPT/HCPCS: 36415; 71045; 78452; 80048; 84484; 85025; 93005; 93017; 96360; 99218; 99285; A9500; J7030; A4216; G0378

== ENCOUNTER → 2020-12-23 10:52 | Outpatient (CLI) | payer MEDICARE, SELFPAY ==
[2018-02-18 09:07] VITALS: BMI 23.1
[2020-01-19 07:51] VITALS: BMI 22.6
[2020-10-26 11:54] VITALS: BMI 21.7
[2020-12-23 11:27] VITALS: PULSE 100; PULSE 101; PULSE 103; PULSE 78; PULSE 80; PULSE 95; PULSE 99; O2SAT 95; O2SAT 96; O2SAT 97
--- NOTE | 2020-12-23 13:30 | PCM.PSN.6M ---
PSN 6 Minute Walk Test 6 Minute Walk Test 6 Minute Walk Test: 6 Minute Walk Test PSN:6-Minute Walk Test Start: 12/23/20 11:26 Freq: Status: Active Protocol: [id number] Document 12/23/20 11:27 [facility] (Rec: 12/23/20 11:30 [facility] [id number]) 6 Minute Walk Test Date Performed 12/23/20 Time Performed 11:15 Height 5 ft 5 in Weight: 130 lb Weight in Pounds 130.[address]: Brittany Assistive device used: None Pre-test Oxygen Delivery Method Room Air Pulse Ox (%) 97 Pulse Rate (60-100 beats/min) 80 Dyspnea Mina Scale (0-10) 0 Exertion Mina Scale (6-20) 6 1st minute Oxygen Delivery Method Room Air Pulse Ox (%) 96 Pulse Rate (60-100 beats/min) 95 2nd minute Oxygen Delivery Method Room Air Pulse Ox (%) 95 Pulse Rate (60-100 beats/min) 100 3rd minute Oxygen Delivery Method Room Air Pulse Ox (%) 95 Pulse Rate (60-100 beats/min) 101 H 4th minute Oxygen Delivery Method Room Air Pulse Ox (%) 95 Pulse Rate (60-100 beats/min) 101 H 5th minute Oxygen Delivery Method Room Air Pulse Ox (%) 95 Pulse Rate (60-100 beats/min) 103 H 6th minute Oxygen Delivery Method Room Air Pulse Ox (%) 96 Pulse Rate (60-100 beats/min) 99 Dyspnea Mina Scale (0-10) 1 Exertion Mina Scale (6-20) 11 Post-test Oxygen Delivery Method Room Air Pulse Ox (%) 97 Pulse Rate (60-100 beats/min) 78 Full Laps Walked 21 Partial Lap, Number of Tiles Walked 27 Total Distance Walked (ft) 1266 Interpretation Interpretation: The patient ambulated 1266 feet over the course of 6 minutes beginning on room air without any assistive devices. Pretesting oxygen saturation was noted to be 97% on room air. With ambulation, the marcus oxygen saturation was 95%. There was no significant exertional oxygen desaturation. Recommendations Recommendations: There is no indication for the use of supplemental oxygen at this time.
== END ==
PROVIDERS: PCP Family Medicine; Referring Provider Nurse Practitioner Acute Care; Visit Provider Nurse Practitioner Acute Care
DX: R06.00 Dyspnea, unspecified (principal)
CPT/HCPCS: 94618

== ENCOUNTER → 2020-12-30 09:21 | Outpatient (CLI) | payer MEDICARE, SELFPAY ==
[2018-02-18 09:07] VITALS: BMI 23.1
[2020-01-19 07:51] VITALS: BMI 22.6
[2020-10-26 11:54] VITALS: BMI 21.7
--- NOTE | 2020-12-30 14:35 | PFTCOMP_ITS ---
COMPLETE PULMONARY FUNCTION TEST INTERPRETATION Brief HPI: Patient is a 75 year old female, currently under the care of myself, who presents to [facility] for complete pulmonary function tests secondary to diagnosis of dyspnea. Respiratory therapist reports good effort and reproducible results. Interpretation: Forced expiration spirometry shows no large airways obstructive ventilatory defect with an FEV1 of 99% predicted. There is no significant bronchodilator response by strict ATS criteria. Spirograms are of good quality and plateau slowly, indicating slowly emptying areas of the lungs. The respiratory flow volume loop shows decreased expiratory flow rates at high lung volumes c onsistent with small airways obstruction. Lung volumes by body plethysmography show an elevated total lung capacity at 6.64 L, 133% predicted. FRC and RV are elevated out of proportion. Lung volume measurements are consistent with hyperinflation and air-trapping. Diffusion capacity by carbon monoxide is normal at 87% predicted. The airway resistance is normal. Compared to previous pulmonary function tests from 07/08/2019, there has been worsening in air trapping with hyperinflation. Impression: Grossly normal pulmonary function studies with some stigmata of small airways disease and worsening in air trapping compared to previous.
== END ==
PROVIDERS: PCP Family Medicine; Referring Provider Nurse Practitioner Acute Care; Visit Provider Nurse Practitioner Acute Care
DX: R06.00 Dyspnea, unspecified (principal)
CPT/HCPCS: 94060; 94726; 94729

== ENCOUNTER 2021-03-22 07:55 | Emergency (ER) | payer MEDICARE, SELFPAY ==
[2018-02-18 09:07] VITALS: BMI 23.1
[2021-01-24 07:55] VITALS: BMI 21.9
[2021-03-22 07:56] VITALS: BP 152/77; PULSE 71; RESP 18; TEMP 36.6; O2SAT 98; BMI 22.9
--- NOTE | 2021-03-22 08:07 | CT_ITS ---
STUDY: CT ABDOMEN AND PELVIS WITH CONTRAST REASON FOR EXAM: Female, 76 years old. Abdominal pain RADIATION DOSAGE (If Supplied By Facility): CTDIvol = ( 9.87 ) mGy, DLP = ( 483.28 ) mGycm TECHNIQUE: Transaxial images were obtained from the dome of the diaphragm to the symphysis pubis without oral contrast. IV 100mL Isovue-300 was administered. Sagittal and coronal images were reconstructed. Individualized dose optimization techniques were used for this CT. COMPARISON: None. FINDINGS: Mild increased linear markings in the right middle lobe and lingular segment of the left upper lobe suggestive of linear scarring. The visualized portions of the heart are within normal limits. Normal liver. Normal gallbladder and extrahepatic biliary system. Normal spleen. Normal pancreas. Normal bilateral adrenal glands. Normal right kidney. Normal left kidney. There is a small hiatal hernia. Normal small intestine. There are multiple colonic diverticula consistent with diverticulosis. There is non-visualization of the appendix. There is scattered atherosclerotic calcification of the abdominal aorta, without a demonstrated aneurysm. Normal inferior vena cava. Normal retroperitoneum. Normal urinary bladder. There is absence of the uterus consistent with a prior hysterectomy. Normal abdominal wall. There are mild degenerative changes of the visualized lumbar spine. CT/Abdomen/Pelvis W IV Cont ONLY IMPRESSION: Sigmoid diverticula. Electronically Signed: Cristhian Lee MD at 9:23 EDT , Service support ,
--- NOTE | 2021-03-22 08:08 | ED.VIS.GI ---
HPI HPI - GI History of Present Illness Chief Complaint: Abd Pain Informant: patient and spouse/S.O. Narrative Narrative: 76-year-old female presenting to the emergency department for the evaluation of abdominal pain. Patient states that she has a right upper quadrant epigastric pain has been present possibly since Sunday but definitely since yesterday. It is mostly there. She describes it as an annoying pain that does not feel that good when she presses on it. She denies any nausea vomiting or diarrhea. No history of constipation. No urinary symptoms. No fever. Symptoms do not change with eating. She has not had a lack of appetite. She states that she has had increased gas and some bloating. Prior appendectomy and hysterectomy. She denies any shortness of breath or chest pain. The pain does not radiate. [facility] Medical History (Updated 03/22/21 @ 09:[address] Grayson Mccall, ) Arthritis Asthma Cough Dyspnea Fibroids High cholesterol History of breast cancer Mitral valve prolapse Personal history of colonic polyps Seasonal allergies Home Medications Lactobacillus acidophilus 10 mg PO QDAY 07/23/17 [History Last Taken Unknown] fish oil-dha-epa 1,200 mg-144 mg-216 mg capsule 1 cap PO DAILY 07/23/17 [History Last Taken 11/24/18] glucosamine YXx-mpb-agdsigpadgq 500 mg-167 mg-400 mg tablet 1 tab PO DAILY 07/23/17 [History Last Taken Unknown] montelukast 10 mg tablet 10 mg PO QHS 07/23/17 [History Last Taken Unknown] pravastatin 40 mg tablet 40 mg PO QHS 07/23/17 [History Last Taken Unknown] sour aviles extract 1,000 mg capsule 1,000 mg PO DAILY 07/23/17 [History Last Taken Unknown] verapamil 120 mg tablet,extended release 120 mg PO QHS 07/23/17 [History Last Taken 11/28/18 21:00] levocetirizine 5 mg PO DAILY 01/21/18 [History Last Taken Unknown] anastrozole 1 mg PO DAILY 04/18/18 [History Last Taken 10/26/20] fluticasone 250 mcg-salmeterol 50 mcg/dose blistr powdr for inhalation 1 inh INHALATION BID 01/28/19 [History Last Taken Unknown] vit A-vit C-zlfc-qhrrplas 15 mg PO DAILY 09/27/20 [History Last Taken Unknown] loratadine 10 mg tablet 10 mg PO DAILY #30 tablet 12/13/20 [Rx Last Taken Unknown] albuterol sulfate 90 mcg/actuation breath activated powder inhaler 90 mcg INHALATION Q4H PRN #1 ea 01/24/21 [Rx Last Taken Unknown] Allergy/AdvReac Type Severity Reaction Status Date / Time codeine Allergy Severe Verified 03/22/21 07:58 cyclobenzaprine Allergy Severe Verified 03/22/21 07:58 [From Flexeril] Penicillins Allergy Severe Verified 03/22/21 07:58 pineapple Allergy Severe Verified 03/22/21 07:58 Family History Father Cancer Hyperlipidemia Throat cancer Pulmonary embolism Mother Heart disease Hyperlipidemia Throat cancer Pulmonary embolism Aunt Hyperlipidemia Throat cancer Pulmonary embolism Surgical History History of appendectomy History of foot surgery History of hysterectomy History of lumpectomy of left breast Social History Smoking Status: Never smoker second hand exposure: No alcohol intake: never substance use type: does not use caffeine: No what type of physical activity do you participate in: walking frequency: 5-6 times per week seatbelt use: always do you feel safe at home: Yes additional social history: - Don Patient and are both retired ROS ROS ED Constitutional Constitutional ED: Denies chills or weight loss Eyes Eyes: Denies change in vision or diplopia ENT ENT ED: Denies ear pain, rhinorrhea or sore throat Cardiovascular Cardiovascular: Denies chest pain, orthopnea, palpitations or racing heartbeat Respiratory/Chest Respiratory/Chest: Denies cough, dyspnea or orthopnea Gastrointestinal Gastrointestinal: Reports abdominal pain; Denies diarrhea, nausea or vomiting Genitourinary Genitourinary ED: Denies dysuria, hematuria or urinary frequency Musculoskeletal Musculoskeletal: Denies arthralgias or myalgias Integumentary Denies abscess or rash Neurologic Neurologic: Denies headache(s) or weakness Psychiatric Psychiatric: Denies anxiety, depression, suicidal ideation or suicidal thoughts Endocrine Endocrinology: Denies polydipsia, polyphagia or polyuria Allergic/Immunologic Allergic/Immunologic ED: Denies mouth swelling, tongue swelling or urticaria EXAM Physical Exam Const Vital Signs: 03/22/21 07:56 03/22/21 09:14 Temperature 97.8 F Temperature Source Temporal Pulse Rate 71 67 Respiratory Rate 18 14 Blood Pressure 152/77 H 133/56 H Blood Pressure Mean 102 81 Pulse Ox 98 100 Oxygen Delivery Method Room Air Room Air Positive well nourished and well developed General Appearance ED: well developed HEENT Reports normocephalic, head/scalp atraumatic and moist mucous membranes Eyes PERRL and EOMs intact bilaterally Neck no lymphadenopathy, supple and no JVD Resp normal respiratory effort and clear to auscultation bilaterally Cardio regular rate, regular rhythm and no murmurs GI normal to inspection, nondistended, normoactive bowel sounds Inspection: Negative for abdominal distention Auscultation: normoactive bowel sounds Palpation: soft and tender epigastric and RUQ; Negative for guarding, rigid or rebound tenderness present Back/Spine no CVA tenderness and normal ROM Extremity normal to inspection General Extremety ED: Negative for edema General Extremity: Negative for edema Neuro oriented x3 and CN's II-XII intact bilaterally Sensorium / Orientation: alert Motor Exam: strength 5/5 throughout Psych mental status grossly normal Mood & Affect: Negative for depressed or tearful Skin no rashes or lesions noted and no wounds MDM MDM MDM Narrative Medical decision making narrative: Basic blood work was obtained. White count 6.8. Normal liver enzymes lipase 272. CT of the abdomen pelvis with IV contrast was obtained which demonstrates sigmoid diverticula but no evidence to demonstrate why she is having this pain. Patient is comfortable going home with observation return if worsening or concerns Lab Data Attestation: I reviewed the patient's lab results. Labs: Laboratory Results - last 24 hr 03/22/21 03/22/21 08:15 08:15 WBC 6.8 RBC 4.65 Hgb 13.9 Hct 43.9 MCV 94.4 MCH 29.9 MCHC 31.7 L RDW Std Deviation 46.6 H RDW Coeff of Jerry 13.6 Plt Count 235 MPV 9.7 Immature Gran % (Auto) 0.100 Neut % (Auto) 66.4 Lymph % (Auto) 26.4 Elbert % (Auto) 6.4 Eos % (Auto) 0.0 Baso % (Auto) 0.7 Absolute Neuts (auto) 4.5 Absolute Lymphs (auto) 1.80 Nucleated RBC % 0 Sodium 142 Potassium 3.8 Chloride 108 H Carbon Dioxide 29.0 Anion Gap 5 BUN 22 H Creatinine 0.83 Estim Creat Clear Calc 51.35 Est GFR (MDRD) Af Amer 87 Est GFR (MDRD) Non-Af 72 BUN/Creatinine Ratio 26.6 H Glucose 98 Calcium 9.0 Total Bilirubin 0.40 AST 25 ALT 27 Alkaline Phosphatase 48 Total Protein 7.2 Albumin 3.8 Globulin 3.4 Albumin/Globulin Ratio 1.1 Lipase 272 Radiography Diagnostic Testing: Radiology Impression Abdomen/Pelvis CT 03/22/21 08:07 IMPRESSION: Sigmoid diverticula. Electronically Signed: Cristhian Lee MD at 9:23 EDT , Service support , Discharge Plan Triage Chief Complaint: Abd Pain ED Provider: Grayson Mccall Dx/Rx/DC Orders Clinical Impression: Abdominal pain, acute Instructions: ED Abdominal Pain Unkn Cause Fem Prescriptions: No Action verapamil [Calan SR] 120 mg tablet extended release 120 mg PO QHS RF: 0 pravastatin [Pravachol] 40 mg tablet 40 mg PO QHS RF: 0 montelukast [Singulair] 10 mg tablet 10 mg PO QHS RF: 0 Lactobacillus acidophilus [Acidophilus] capsule 10 mg PO QDAY RF: 0 fish oil-dha-epa 1,200-144-216 mg capsule 1 cap PO DAILY RF: 0 sour aviles extract [Tart Aviles Extract] 1,000 mg capsule 1,000 mg PO DAILY RF: 0 glucosamine FZv-emj-llntgjqohvn 500 mg-167 mg-400 mg tablet 500-167-400 mg tablet 1 tab PO DAILY RF: 0 fluticasone propion-salmeterol [Advair Diskus] 250-50 mcg/dose blister with device 1 inh INHALATION BID RF: 0 ProAir RespiClick 90 mcg/actuation aerosol powdr breath activated 90 mcg INHALATION Q4H PRN (Reason: Sob &/Or Wheezing) Qty: 1 RF: 1 levocetirizine 5 MG tablet 5 mg PO DAILY RF: 0 anastrozole 1 MG tablet 1 mg PO DAILY RF: 0 vit A-vit U-exap-obtcnhvc 15 MG lozenge 15 mg PO DAILY RF: 0 loratadine 10 mg tablet 10 mg PO DAILY Qty: 30 RF: 6 Primary Care Provider: Ashkan Ortiz Referrals: Ashkan Ortiz MD [Primary Care Provider] - 1-2 Days if not improving Disposition Disposition: Home, Self Care
[2021-03-22 08:22] LABS: Absolute Neutrophil Count 4.5 X10^3/uL (2.0-7.7); Basophil# 0.05 X10^3/uL; Basophil% 0.7 % (0-1); Hematocrit 43.9 % (37-47); Hemoglobin 13.9 g/dL (12.0-15.0); Lymphocyte % 26.4 % (19-41); Mean Corp Hgb Conc 31.7 g/dL (32-36); Mean Corpuscular Hgb 29.9 pg (27.0-32.0); Mean Corpuscular Volume 94.4 fL (81-99); Mean Platelet Vol. 9.7 fl (6.2-12.0); Monocyte# 0.44 X10^3/uL; Monocyte% 6.4 % (0-10); NRBC Flagged by Analyzer 0 % (0-5); Neutrophil # 4.53 X10^3/uL (2.7-7.7); Neutrophil % 66.4 % (47-70); Platelet Count 235 K/mm3 (150-450); RBC Distribution Width CV 13.6 % (11.6-14.6); RBC Distribution Width SD 46.6 fl (35.1-43.9); Red Blood Count 4.65 M/mm3 (4.2-5.4); White Blood Count 6.8 K/mm3 (4.4-11.0)
[2021-03-22 08:38] LABS: ALB/GLOB Ratio 1.1 RATIO (0.9-2.4); AST(SGOT) 25 U/L (15-37); Alanine Aminotransfer ALT/SGPT 27 U/L (13-56); Albumin, Serum 3.8 g/dL (3.2-5.0); Alkaline Phosphatase 48 U/L (45-117); Anion Gap 5 (5-15); BUN 22 mg/dL (7-18); BUN/Creat Ratio 26.6 RATIO (10-20); Chloride 108 mmol/L (98-107); Creatinine, Serum 0.83 mg/dL (0.55-1.02); EST Glomerular Filtration Rate 72 mL/min (>60); Est Glom Filt Rate - Afr Amer 87 mL/min (>60); Estimated Creatinine Clearance 51.35 ml/min; Globulin 3.4 g/dL (2.2-4.2); Glucose 98 mg/dL (74-106); Lipase 272 U/L (73-393); Potassium 3.8 mmol/L (3.5-5.1); Protein, Total 7.2 g/dL (6.4-8.2); Sodium Level 142 mmol/L (136-145)
[2021-03-22 09:14] VITALS: BP 133/56; PULSE 67; RESP 14; O2SAT 100
== END 2021-03-22 09:37 | disposition home or self-care (01) ==
PROVIDERS: Emergency Provider Emergency Medicine; PCP Family Medicine
DX: R10.11 Right upper quadrant pain (principal); R10.13 Epigastric pain; K57.30 Diverticulosis of large intestine without perforation or abscess without bleeding; I34.1 Nonrheumatic mitral (valve) prolapse; E78.00 Pure hypercholesterolemia, unspecified; J45.909 Unspecified asthma, uncomplicated; M19.90 Unspecified osteoarthritis, unspecified site; Z85.3 Personal history of malignant neoplasm of breast; Z87.19 Personal history of other diseases of the digestive system; Z86.010 Personal history of colon polyps; Z79.899 Other long term (current) drug therapy
CPT/HCPCS: 74177; 80053; 83690; 85025; 99282; A4216

== ENCOUNTER 2021-05-16 09:06 | Emergency (ER) | payer MEDICARE, SELFPAY ==
[2018-02-18 09:07] VITALS: BMI 23.1
[2021-05-16 09:07] VITALS: BP 112/76; PULSE 81; RESP 16; TEMP 36.7; O2SAT 100; BMI 22.3
--- NOTE | 2021-05-16 09:25 | EKG12_ITS ---
Test Reason : DIZZINESS Blood Pressure : / mmHG Vent. Rate : 069 BPM Atrial Rate : 069 BPM P-R Int : 156 ms QRS Dur : 086 ms QT Int : 374 ms P-R-T Axes : 083 054 030 degrees QTc Int : 400 ms Normal sinus rhythm Normal ECG Confirmed by DARREN FERNANDES, NOLVIA ([id number]), technical writer and editor AMAYA TRIPATHI ([id number]) on 05/18/2021 9:18:07 AM Referred By: ALFREDO/JAYANT Confirmed By:NOLVIA BANKS MD
--- NOTE | 2021-05-16 09:26 | EDS_ITS ---
HPI History of Present Illness Chief Complaint: Dizziness Informant: patient Onset/Context/Timing Onset: Weeks Timing: Intermittent and Lasts (Minutes) Current Severity: Gone Maximum Severity: Mild Narrative Narrative: Patient presents with episodes of dizziness. She describes as a lightheaded sensation. She denies chest pain but states she is will sometimes feel her heart racing or skipping beats. She denies shortness of breath. She denies syncope or presyncope. [facility] Medical History (Updated 05/16/21 @ 10:[address] Pamela Jhaveri MD) Arthritis Asthma Cough Dyspnea Fibroids High cholesterol History of breast cancer Mitral valve prolapse Personal history of colonic polyps Seasonal allergies Home Medications Lactobacillus acidophilus 10 mg PO QDAY 07/23/17 [History Last Taken Unknown] fish oil-dha-epa 1,200 mg-144 mg-216 mg capsule 1 cap PO DAILY 07/23/17 [History Last Taken 11/24/18] glucosamine IGi-uys-xqqkhcomdxd 500 mg-167 mg-400 mg tablet 1 tab PO DAILY 07/23/17 [History Last Taken Unknown] montelukast 10 mg tablet 10 mg PO QHS 07/23/17 [History Last Taken Unknown] pravastatin 40 mg tablet 40 mg PO QHS 07/23/17 [History Last Taken Unknown] sour aviles extract 1,000 mg capsule 1,000 mg PO DAILY 07/23/17 [History Last Taken Unknown] verapamil 120 mg tablet,extended release 120 mg PO QHS 07/23/17 [History Last Taken 11/28/18 21:00] levocetirizine 5 mg PO DAILY 01/21/18 [History Last Taken Unknown] anastrozole 1 mg PO DAILY 04/18/18 [History Last Taken 10/26/20] fluticasone 250 mcg-salmeterol 50 mcg/dose blistr powdr for inhalation 1 inh INHALATION BID 01/28/19 [History Last Taken Unknown] vit A-vit Y-imhk-horkszqm 15 mg PO DAILY 09/27/20 [History Last Taken Unknown] loratadine 10 mg tablet 10 mg PO DAILY #30 tablet 12/13/20 [Rx Last Taken Unknown] tamoxifen 10 mg tablet 10 mg PO BID 03/28/21 [History Last Taken Unknown] vitamin K2 45 mcg capsule 45 mcg PO DAILY 03/28/21 [History Last Taken Unknown] albuterol sulfate 90 mcg/actuation breath activated powder inhaler 90 mcg INHALATION Q4H PRN #1 ea 04/13/21 [Rx Last Taken Unknown] Allergy/AdvReac Type Severity Reaction Status Date / Time codeine Allergy Severe Verified 05/16/21 09:11 cyclobenzaprine Allergy Severe Verified 05/16/21 09:11 [From Flexeril] Penicillins Allergy Severe Verified 05/16/21 09:11 pineapple Allergy Severe Verified 05/16/21 09:11 Family History Father Cancer Hyperlipidemia Throat cancer Pulmonary embolism Mother Heart disease Hyperlipidemia Throat cancer Pulmonary embolism Aunt Hyperlipidemia Throat cancer Pulmonary embolism Surgical History History of appendectomy History of foot surgery History of hysterectomy History of lumpectomy of left breast Social History Smoking Status: Never smoker second hand exposure: No alcohol intake: never substance use type: does not use caffeine: No what type of physical activity do you participate in: walking frequency: 5-6 times per week seatbelt use: always do you feel safe at home: Yes additional social history: - Don Patient and are both retired ROS ROS ED Constitutional Constitutional ED: Denies chills or fever(s) Eyes Eyes: Denies change in vision ENT ENT ED: Denies sore throat Cardiovascular Cardiovascular: Reports palpitations and racing heartbeat; Denies chest pain Respiratory/Chest Respiratory/Chest: Denies cough or dyspnea Gastrointestinal Gastrointestinal: Denies abdominal pain, diarrhea, nausea or vomiting Genitourinary Genitourinary ED: Denies dysuria Musculoskeletal Musculoskeletal: Denies back pain Integumentary Denies rash Neurologic Neurologic: Denies headache(s) or weakness Psychiatric Psychiatric: Denies anxiety or depression Allergic/Immunologic Allergic/Immunologic ED: Denies urticaria EXAM Physical Exam Const Vital Signs: 05/16/21 09:07 05/16/21 09:43 Temperature 98.0 F Temperature Source Temporal Pulse Rate 81 Respiratory Rate 16 Respiratory Effort Normal Non-Labored Respiratory Pattern Normal Blood Pressure 112/76 Blood Pressure Mean 88 Pulse Ox 100 Oxygen Delivery Method Room Air Positive well nourished and well developed General Appearance ED: well developed HEENT Reports normocephalic and head/scalp atraumatic Eyes PERRL and EOMs intact bilaterally Neck supple Chest Wall inspection of chest normal and palpation of chest normal Resp normal respiratory effort and clear to auscultation bilaterally Cardio regular rate and regular rhythm GI normal to inspection, nondistended, normoactive bowel sounds Palpation: soft Extremity normal to inspection Neuro oriented x3 and no sensory deficits noted Sensorium / Orientation: alert Motor Exam: strength 5/5 throughout Psych mental status grossly normal Skin no rashes or lesions noted MDM MDM MDM Narrative Medical decision making narrative: Patient was placed on cardiac catheterization technician. EKG, chest x-ray, lab work obtained. Lab Data Attestation: I reviewed the patient's lab results. Labs: Laboratory Results - last 24 hr 05/16/21 05/16/21 09:40 09:40 WBC 8.7 RBC 4.61 Hgb 14.0 Hct 42.0 MCV 91.1 MCH 30.4 MCHC 33.3 RDW Std Deviation 43.6 RDW Coeff of Jerry 13.1 Plt Count 281 MPV 9.4 Immature Gran % (Auto) 0.300 Neut % (Auto) 74.0 H Lymph % (Auto) 18.7 L [place] % (Auto) 6.4 Eos % (Auto) 0.0 Baso % (Auto) 0.6 Absolute Neuts (auto) 6.4 Absolute Lymphs (auto) 1.63 Nucleated RBC % 0 Sodium 135 L Potassium 4.0 Chloride 103 Carbon Dioxide 26.0 Anion Gap 6 BUN 16 Creatinine 0.82 Estim Creat Clear Calc 51.98 Est GFR (MDRD) Af Amer 87 Est GFR (MDRD) Non-Af 72 BUN/Creatinine Ratio 19.4 Glucose 102 Calcium 8.7 Troponin I High Sens 5 TSH 0.71 Radiography Chest X-Ray - ED: 1 View, Read by ED Physician and Chronic Changes Diagnostic Testing: Clinical Impression(s) from Imaging Studies Chest X-Ray 05/16/21 10:05 IMPRESSION: Hyperinflation. The lungs are clear. Electronically Signed: Cristhian Lee MD at 10:14 EDT , Service support , EKG Initial EKG: Attestation: I personally reviewed and interpreted this EKG as follows: Interpretation: Sinus Rhythm (Sinus at 69 with no acute ischemia.) Treatment and Re-Evaluation Comments:: Test results discussed with the patient. Her sodium is slightly low, but I do not feel that this is the cause of her dizzy episodes. Patient states she has been drinking a lot of water recently. I recommended Gatorade or Powerade. She has already contacted her physician about getting a Holter monitor and states it is being sent to her. I did review return instructions with her. Discharge Plan Triage Chief Complaint: Dizziness ED Provider: Pamela Jhaveri Dx/Rx/DC Orders Clinical Impression: Dizziness Instructions: ED Dizziness, Uncertain Cause Prescriptions: No Action verapamil [Calan SR] 120 mg tablet extended release 120 mg PO QHS RF: 0 pravastatin [Pravachol] 40 mg tablet 40 mg PO QHS RF: 0 montelukast [Singulair] 10 mg tablet 10 mg PO QHS RF: 0 Lactobacillus acidophilus [Acidophilus] capsule 10 mg PO QDAY RF: 0 fish oil-dha-epa 1,200-144-216 mg capsule 1 cap PO DAILY RF: 0 sour aviles extract [Tart Aviles Extract] 1,000 mg capsule 1,000 mg PO DAILY RF: 0 glucosamine LIo-lxj-rmmttdjkbsz 500 mg-167 mg-400 mg tablet 500-167-400 mg tablet 1 tab PO DAILY RF: 0 fluticasone propion-salmeterol [Advair Diskus] 250-50 mcg/dose blister with device 1 inh INHALATION BID RF: 0 vitamin K2 45 mcg capsule 45 mcg PO DAILY RF: 0 tamoxifen 10 mg tablet 10 mg PO BID RF: 0 levocetirizine 5 MG tablet 5 mg PO DAILY RF: 0 anastrozole 1 MG tablet 1 mg PO DAILY RF: 0 vit A-vit O-eafi-frfsanpe 15 MG lozenge 15 mg PO DAILY RF: 0 loratadine 10 mg tablet 10 mg PO DAILY Qty: 30 RF: 6 ProAir RespiClick 90 mcg/actuation aerosol powdr breath activated 90 mcg INHALATION Q4H PRN (Reason: Sob &/Or Wheezing) Qty: 1 RF: 1 Primary Care Provider: Ashkan Ortiz Referrals: Ashkan Ortiz MD [Primary Care Provider] - 1 Week if not improving Disposition Disposition: Home, Self Care
[2021-05-16 09:53] LABS: Absolute Lymphocyte Count 1.63 X10^3/uL (0.83-4.51); Absolute Neutrophil Count 6.4 X10^3/uL (2.0-7.7); Basophil# 0.05 X10^3/uL; Basophil% 0.6 % (0-1); Lymphocyte # 1.63 X10^3/ul (0.83-4.51); Lymphocyte % 18.7 % (19-41); Mean Corp Hgb Conc 33.3 g/dL (32-36); Mean Corpuscular Hgb 30.4 pg (27.0-32.0); Mean Corpuscular Volume 91.1 fL (81-99); Mean Platelet Vol. 9.4 fl (6.2-12.0); Monocyte# 0.56 X10^3/uL; Monocyte% 6.4 % (0-10); NRBC Flagged by Analyzer 0 % (0-5); Neutrophil # 6.44 X10^3/uL (2.7-7.7); Platelet Count 281 K/mm3 (150-450); RBC Distribution Width CV 13.1 % (11.6-14.6); RBC Distribution Width SD 43.6 fl (35.1-43.9); Red Blood Count 4.61 M/mm3 (4.2-5.4); White Blood Count 8.7 K/mm3 (4.4-11.0)
--- NOTE | 2021-05-16 10:05 | RAD_ITS ---
STUDY: X-RAY CHEST REASON FOR EXAM: Female, 76 years old. Cp TECHNIQUE: Single AP portable view of the chest. COMPARISON: Comparison is made with prior study dated 10/26/2020. FINDINGS: EKG electrodes are seen. There is hyperinflation of the lungs consistent with chronic obstructive lung disease (COPD). There is no demonstrated pleural abnormality. Normal size heart. Normal mediastinum and humberto. Normal visualized pulmonary arteries. There is atherosclerotic calcification of the aortic arch with tortuosity. There are degenerative changes of the visualized thoracic spine. Normal visualized ribs, clavicles, and shoulders. There is no demonstrated abnormality of the visualized soft tissue structures of the upper abdomen. RAD/Chest 1 View (Portable) IMPRESSION: Hyperinflation. The lungs are clear. Electronically Signed: Cristhian Lee MD at 10:14 EDT , Service support ,
[2021-05-16 10:16] LABS: Anion Gap 6 (5-15); BUN 16 mg/dL (7-18); BUN/Creat Ratio 19.4 RATIO (10-20); Calcium,Total 8.7 mg/dL (8.5-10.1); Chloride 103 mmol/L (98-107); Creatinine, Serum 0.82 mg/dL (0.55-1.02); EST Glomerular Filtration Rate 72 mL/min (>60); Est Glom Filt Rate - Afr Amer 87 mL/min (>60); Estimated Creatinine Clearance 51.98 ml/min; Glucose 102 mg/dL (74-106); Sodium Level 135 mmol/L (136-145); Thyroid Stim Hormone (TSH) 0.71 uIU/mL (0.358-3.74); Troponin-I HS 5 pg/mL (3.0-54.0)
[2021-05-16 11:04] VITALS: BP 133/68; PULSE 72; RESP 16; O2SAT 99
== END 2021-05-16 11:13 | disposition home or self-care (01) ==
PROVIDERS: Emergency Provider Emergency Medicine; PCP Family Medicine
DX: R42 Dizziness and giddiness (principal); M19.90 Unspecified osteoarthritis, unspecified site; E78.00 Pure hypercholesterolemia, unspecified; J45.909 Unspecified asthma, uncomplicated; Z79.51 Long term (current) use of inhaled steroids; Z79.890 Hormone replacement therapy; Z79.899 Other long term (current) drug therapy; Z87.19 Personal history of other diseases of the digestive system; Z85.3 Personal history of malignant neoplasm of breast
CPT/HCPCS: 71045; 80048; 84443; 84484; 85025; 93005; 99284; A4216

== ENCOUNTER 2021-05-24 07:55 | Emergency (ER) | payer MEDICARE, SELFPAY ==
[2018-02-18 09:07] VITALS: BMI 23.1
[2021-05-24 07:56] VITALS: BP 122/62; PULSE 83; RESP 16; TEMP 36.1; O2SAT 100; BMI 21.6
--- NOTE | 2021-05-24 08:06 | EKG12_ITS ---
Test Reason : Blood Pressure : / mmHG Vent. Rate : 072 BPM Atrial Rate : 072 BPM P-R Int : 148 ms QRS Dur : 084 ms QT Int : 394 ms P-R-T Axes : 080 046 018 degrees QTc Int : 431 ms Normal sinus rhythm Nonspecific ST abnormality Abnormal ECG Confirmed by DARREN FERNANDES, NOLVIA ([id number]), news video editor AMAYA TRIPATHI ([id number]) on 05/25/2021 9:28:25 AM Referred By: [facility] Confirmed By:NOLVIA BANKS MD
--- NOTE | 2021-05-24 08:06 | RAD_ITS ---
STUDY: X-RAY CHEST REASON FOR EXAM: Female, 76 years old. Chest pain TECHNIQUE: Single AP portable view of the chest. COMPARISON: Comparison is made with prior study 05/16/2021. FINDINGS: EKG electrodes are seen. There is hyperinflation of the lungs consistent with chronic obstructive lung disease (COPD). Mild increased linear markings in the medial aspect of the right middle lobe suggestive of atelectasis. There is no demonstrated pleural abnormality. Normal size heart. Normal mediastinum and humberto. Normal visualized pulmonary arteries. There is atherosclerotic calcification of the aortic arch with tortuosity. There are diffuse degenerative changes of the visualized thoracic spine. Calcific tendinitis of the right shoulder. There is no demonstrated abnormality of the visualized soft tissue structures of the upper abdomen. RAD/Chest 1 View (Portable) IMPRESSION: Hyperinflation. Mild increased linear markings in the right middle lobe medially. This most likely represents a focal area of atelectasis. Electronically Signed: Cristhian Lee MD at 9:18 EDT , Service support ,
--- NOTE | 2021-05-24 08:07 | EX.ED.DYSGE1 ---
HPI History of Present Illness Chief Complaint: Palpitations Narrative Narrative: Patient presents with palpitations described both as fast heart rate and skipped beats at home. She did not take her pulse. This started last night, she has no fevers chills cough or congestion, she is worried because she is on fluconazole and read that this could cause arrhythmias. No fevers or chills. She is denying any kind of chest pain or back pain. She has no pleuritic component. No lower extremity edema or calf pain or any kind of DVT or PE risk factors. [facility] Medical History (Updated 05/24/21 @ 09:[address] Tyler Smith MD) Arthritis Asthma Cough Dyspnea Fibroids High cholesterol History of breast cancer Mitral valve prolapse Personal history of colonic polyps Seasonal allergies Home Medications Lactobacillus acidophilus 10 mg PO QDAY 07/23/17 [History Last Taken Unknown] fish oil-dha-epa 1,200 mg-144 mg-216 mg capsule 1 cap PO DAILY 07/23/17 [History Last Taken 11/24/18] glucosamine OBt-skj-edhrsxupoxn 500 mg-167 mg-400 mg tablet 1 tab PO DAILY 07/23/17 [History Last Taken Unknown] montelukast 10 mg tablet 10 mg PO QHS 07/23/17 [History Last Taken Unknown] pravastatin 40 mg tablet 40 mg PO QHS 07/23/17 [History Last Taken Unknown] sour aviles extract 1,000 mg capsule 1,000 mg PO DAILY 07/23/17 [History Last Taken Unknown] verapamil 120 mg tablet,extended release 120 mg PO QHS 07/23/17 [History Last Taken 11/28/18 21:00] levocetirizine 5 mg PO DAILY 01/21/18 [History Last Taken Unknown] anastrozole 1 mg PO DAILY 04/18/18 [History Last Taken 10/26/20] fluticasone 250 mcg-salmeterol 50 mcg/dose blistr powdr for inhalation 1 inh INHALATION BID 01/28/19 [History Last Taken Unknown] vit A-vit J-ajfv-swurcjtf 15 mg PO DAILY 09/27/20 [History Last Taken Unknown] loratadine 10 mg tablet 10 mg PO DAILY #30 tablet 12/13/20 [Rx Last Taken Unknown] tamoxifen 10 mg tablet 10 mg PO BID 03/28/21 [History Last Taken Unknown] vitamin K2 45 mcg capsule 45 mcg PO DAILY 03/28/21 [History Last Taken Unknown] albuterol sulfate 90 mcg/actuation breath activated powder inhaler 90 mcg INHALATION Q4H PRN #1 ea 04/13/21 [Rx Last Taken Unknown] levofloxacin 500 mg tablet 500 mg PO Q24H #7 tab 05/20/21 [Rx Last Taken Unknown] prednisone 10 mg tablet 10 mg PO QDAY #20 tab 05/20/21 [Rx Last Taken Unknown] fluconazole 150 mg tablet 150 mg PO Q3D #2 tab 05/23/21 [Rx Last Taken Unknown] Allergy/AdvReac Type Severity Reaction Status Date / Time codeine Allergy Severe Verified 05/24/21 07:57 cyclobenzaprine Allergy Severe Verified 05/24/21 07:57 [From Flexeril] Penicillins Allergy Severe Verified 05/24/21 07:57 pineapple Allergy Severe Verified 05/24/21 07:57 Family History Father Cancer Hyperlipidemia Throat cancer Pulmonary embolism Mother Heart disease Hyperlipidemia Throat cancer Pulmonary embolism Aunt Hyperlipidemia Throat cancer Pulmonary embolism Surgical History History of appendectomy History of foot surgery History of hysterectomy History of lumpectomy of left breast Social History Smoking Status: Never smoker second hand exposure: No alcohol intake: never substance use type: does not use caffeine: No what type of physical activity do you participate in: walking frequency: 5-6 times per week seatbelt use: always do you feel safe at home: Yes additional social history: - Don Patient and are both retired ROS ROS ED ROS Narrative Past medical history: Reviewed, includes mitral valve prolapse, asthma. Medications: Reviewed Social history: Noncontributory Review of systems: All systems negative except as indicated General: No fever Eyes: No visual changes ENT: No upper airway congestion, normal voice Neck: No neck pain Cardiovascular: No chest pain. Palpitations as in HPI Respiratory: No shortness of breath or cough Gastrointestinal: No abdominal pain, nausea vomiting or diarrhea Genitourinary: Yeast infection which is improving. Musculoskeletal: Denies myalgias no difficulty with ambulation Skin: No rash Neurological: No memory loss, confusion or any focal weakness Psych: No recent behavioral changes Hematologic: No easy bleeding or easy bruising EXAM Physical Exam Narrative Exam Narrative: Physical exam General: Well nourished, Well developed, No Acute Distress Head: Normocephalic, Atraumatic Eyes: Conjunctiva not pale ENT: Moist mucous membranes Neck: Supple, Nontender, No lymphadenopathy Cardiovascular: Regular rate, Regular rhythm Respiratory: No distress, CTA bilaterally Abdomen: Soft, Nontender, Nondistended Back: Nontender, Normal Inspection. Negative for: CVA tenderness Extremities: Nontender, No edema Skin: Normal color, No rash Neurological: Alert, Normal Strength, Normal Sensation Psychological: Normal affect Const Vital Signs: 05/24/21 07:56 05/24/21 08:25 05/24/21 08:26 Temperature 97 F L Temperature Source Temporal Pulse Rate 83 Respiratory Rate 16 Respiratory Effort Normal Respiratory Pattern Normal Blood Pressure 122/62 H Blood Pressure Mean 82 Pulse Ox 100 Oxygen Delivery Method Room Air Room Air 05/24/21 09:22 Temperature Temperature Source Pulse Rate 71 Respiratory Rate 16 Respiratory Effort Respiratory Pattern Blood Pressure 127/72 H Blood Pressure Mean 90 Pulse Ox 99 Oxygen Delivery Method Room Air MDM MDM MDM Narrative Medical decision making narrative: Patient has a normal work-up. Her QTC is normal, her EKG is normal. She appears well, I will place a Holter monitor and discharge her in stable condition. Lab Data Labs: Laboratory Results - last 24 hr 05/24/21 05/24/21 08:23 08:23 WBC 6.8 RBC 4.52 Hgb 13.6 Hct 41.5 MCV 91.8 MCH 30.1 MCHC 32.8 RDW Std Deviation 44.9 H RDW Coeff of Jerry 13.2 Plt Count 221 MPV 9.6 Immature Gran % (Auto) 0.300 Neut % (Auto) 69.9 Lymph % (Auto) 23.2 [place] % (Auto) 5.9 Eos % (Auto) 0.0 Baso % (Auto) 0.7 Absolute Neuts (auto) 4.8 Absolute Lymphs (auto) 1.58 Nucleated RBC % 0 Sodium 141 Potassium 3.6 Chloride 104 Carbon Dioxide 27.0 Anion Gap 10 BUN 14 Creatinine 0.82 Estim Creat Clear Calc 54.16 Est GFR (MDRD) Af Amer 87 Est GFR (MDRD) Non-Af 72 BUN/Creatinine Ratio 17.0 Glucose 116 H Calcium 8.4 L Troponin I High Sens 6 Radiography Diagnostic Testing: Clinical Impression(s) from Imaging Studies Chest X-Ray 05/24/21 08:06 IMPRESSION: Hyperinflation. Mild increased linear markings in the right middle lobe medially. This most likely represents a focal area of atelectasis. Electronically Signed: Cristhian Lee MD at 9:18 EDT , Service support , Discharge Plan Triage Chief Complaint: Palpitations ED Provider: Tyler Smith Dx/Rx/DC Orders Clinical Impression: Palpitation Instructions: ED Palpitations Prescriptions: No Action verapamil [Calan SR] 120 mg tablet extended release 120 mg PO QHS RF: 0 pravastatin [Pravachol] 40 mg tablet 40 mg PO QHS RF: 0 montelukast [Singulair] 10 mg tablet 10 mg PO QHS RF: 0 Lactobacillus acidophilus [Acidophilus] capsule 10 mg PO QDAY RF: 0 fish oil-dha-epa 1,200-144-216 mg capsule 1 cap PO DAILY RF: 0 sour aviles extract [Tart Aviles Extract] 1,000 mg capsule 1,000 mg PO DAILY RF: 0 glucosamine RBs-yfl-eetsnkirgwr 500 mg-167 mg-400 mg tablet 500-167-400 mg tablet 1 tab PO DAILY RF: 0 fluticasone propion-salmeterol [Advair Diskus] 250-50 mcg/dose blister with device 1 inh INHALATION BID RF: 0 vitamin K2 45 mcg capsule 45 mcg PO DAILY RF: 0 tamoxifen 10 mg tablet 10 mg PO BID RF: 0 levocetirizine 5 MG tablet 5 mg PO DAILY RF: 0 anastrozole 1 MG tablet 1 mg PO DAILY RF: 0 vit A-vit H-hfhl-vrnhmklh 15 MG lozenge 15 mg PO DAILY RF: 0 loratadine 10 mg tablet 10 mg PO DAILY Qty: 30 RF: 6 ProAir RespiClick 90 mcg/actuation aerosol powdr breath activated 90 mcg INHALATION Q4H PRN (Reason: Sob &/Or Wheezing) Qty: 1 RF: 1 levofloxacin 500 mg tablet 500 mg PO Q24H Qty: 7 RF: 0 prednisone 10 mg tablet 10 mg PO QDAY Qty: 20 RF: 0 fluconazole [Diflucan] 150 mg tablet 150 mg PO Q3D Qty: 2 RF: 0 Primary Care Provider: Ashkan Ortiz Referrals: Shai Kim MD [STAFF PHYSICIAN] - 3-5 Days Ashkan Ortiz MD [Primary Care Provider] - Disposition Disposition: Home, Self Care
[2021-05-24] MEDS: Aspirin 81 MG TAB.CHEW 324 MG PO (08:22)
[2021-05-24 08:28] LABS: Absolute Lymphocyte Count 1.58 X10^3/uL (0.83-4.51); Absolute Neutrophil Count 4.8 X10^3/uL (2.0-7.7); Basophil# 0.05 X10^3/uL; Basophil% 0.7 % (0-1); Hematocrit 41.5 % (37-47); Hemoglobin 13.6 g/dL (12.0-15.0); Lymphocyte # 1.58 X10^3/ul (0.83-4.51); Lymphocyte % 23.2 % (19-41); Mean Corp Hgb Conc 32.8 g/dL (32-36); Mean Corpuscular Hgb 30.1 pg (27.0-32.0); Mean Corpuscular Volume 91.8 fL (81-99); Mean Platelet Vol. 9.6 fl (6.2-12.0); Monocyte% 5.9 % (0-10); NRBC Flagged by Analyzer 0 % (0-5); Neutrophil # 4.76 X10^3/uL (2.7-7.7); Neutrophil % 69.9 % (47-70); Platelet Count 221 K/mm3 (150-450); RBC Distribution Width CV 13.2 % (11.6-14.6); RBC Distribution Width SD 44.9 fl (35.1-43.9); Red Blood Count 4.52 M/mm3 (4.2-5.4); White Blood Count 6.8 K/mm3 (4.4-11.0)
[2021-05-24 08:45] LABS: Anion Gap 10 (5-15); BUN 14 mg/dL (7-18); Calcium,Total 8.4 mg/dL (8.5-10.1); Chloride 104 mmol/L (98-107); Creatinine, Serum 0.82 mg/dL (0.55-1.02); EST Glomerular Filtration Rate 72 mL/min (>60); Est Glom Filt Rate - Afr Amer 87 mL/min (>60); Estimated Creatinine Clearance 54.16 ml/min; Glucose 116 mg/dL (74-106); Potassium 3.6 mmol/L (3.5-5.1); Sodium Level 141 mmol/L (136-145); Troponin-I HS 6 pg/mL (3.0-54.0)
[2021-05-24 09:22] VITALS: BP 127/72; PULSE 71; RESP 16; O2SAT 99
[2021-05-24 10:21] VITALS: BP 112/67; PULSE 68; RESP 18
== END 2021-05-24 10:40 | disposition home or self-care (01) ==
PROVIDERS: Emergency Provider Emergency Medicine; PCP Family Medicine
DX: R00.2 Palpitations (principal); E78.00 Pure hypercholesterolemia, unspecified; J45.909 Unspecified asthma, uncomplicated; I34.1 Nonrheumatic mitral (valve) prolapse; M19.90 Unspecified osteoarthritis, unspecified site; Z79.52 Long term (current) use of systemic steroids; Z79.51 Long term (current) use of inhaled steroids; Z79.890 Hormone replacement therapy; Z79.899 Other long term (current) drug therapy; Z87.19 Personal history of other diseases of the digestive system; Z85.3 Personal history of malignant neoplasm of breast
CPT/HCPCS: 71045; 80048; 84484; 85025; 93005; 93225; 93226; 99284; A4216

== ENCOUNTER → 2021-05-24 10:22 | Outpatient (CLI) | payer MEDICARE, SELFPAY ==
[2018-02-18 09:07] VITALS: BMI 23.1
== END ==
PROVIDERS: PCP Family Medicine; Visit Provider Emergency Medicine
DX: R00.2 Palpitations (principal)
CPT/HCPCS: 93225; 93226

== ENCOUNTER → 2021-07-11 09:54 | Outpatient (CLI) | payer MEDICARE, SELFPAY ==
[2018-02-18 09:07] VITALS: BMI 23.1
--- NOTE | 2021-07-11 09:56 | ECHOD_ITS ---
Reason For Study: MVP Procedure This was a 2D Doppler, Color Flow transthoracic echocardiogram. Contrast injection was performed. Exam performed in department. Left Ventricle Normal LV size. Left ventricular systolic function is normal. The estimated ejection fraction is 55 %. Stage 1 diastolic dysfunction. No regional wall motion abnormalities noted. Right Ventricle Normal right ventricle. Normal systolic function. Atria Normal left atrium. Normal right atrium. Mitral Valve Normal mitral valve. Tricuspid Valve Normal tricuspid valve. Mild tricuspid valve insufficiency. Pulmonary artery systolic pressure is 24 mmHg. Aortic Valve The aortic valve is not well visualized. Pulmonic Valve Normal pulmonic valve. Great Vessels Normal aortic root. The pulmonary artery is normal size. Normal inferior vena cava. Pericardium/Pleural No pericardial effusion. Medication Diluted definity 3ml given slow IV push to enhance endocardial definition. MMode/2D Measurements & Calculations LVIDd: 3.8 cm IVSd: 1.1 cm Ao root diam: 2.8 cm LVIDs: 2.3 cm LVPWd: 0.97 cm RVDd: 3.4 cm FS: 39.0 % LAV(MOD-bp): 24.1 ml LVAd ap4: 20.9 cm2 SV(MOD-sp4): 36.2 ml LAV(MOD-bp) Indexed: 14.4 ml/m2 LVLd ap4: 6.5 cm LAV(MOD-sp2): 27.1 ml EDV(MOD-sp4): 56.6 ml LAV(MOD-sp4): 20.4 ml EDV(sp4-el): 57.4 ml LVAs ap4: 11.2 cm2 LVLs ap4: 5.4 cm ESV(MOD-sp4): 20.4 ml ESV(sp4-el): 19.6 ml EF(MOD-sp4): 64.0 % EF(sp4-el): 65.8 % SV(sp4-el): 37.7 ml LA A4 area: 11.2 cm2 LA dimension(2D): 2.9 cm RA A4 area: 14.5 cm2 Doppler Measurements & Calculations MV E max isidro: 58.1 cm/sec Lat Peak E' Isidro: 8.5 cm/sec Med Peak E' Isidro: 5.8 cm/sec MV A max isidro: 75.9 cm/sec E/E' lat: 6.8 E/E' med: 10.0 MV E/A: 0.77 Ao V2 max: 91.9 cm/sec LV V1 max: 97.4 cm/sec PA V2 max: 81.5 cm/sec Ao max P.4 mmHg LV V1 max P.8 mmHg Ao V2 mean: 66.7 cm/sec Ao mean P.9 mmHg Ao V2 VTI: 18.8 cm TR max isidro: 224.5 cm/sec TR max P.2 mmHg ECHO/Echo Complete W/ Contrast Interpretation Summary Normal LV size. Left ventricular systolic function is normal. The estimated ejection fraction is 55 %. Stage 1 diastolic dysfunction. Contrast injection was performed. Ordering Physician: Shai Kim Referring Physician: Ashkan Ortiz Performed By: Rosa Meng, BONY, RVT
== END ==
PROVIDERS: PCP Family Medicine; Referring Provider Internal Medicine Cardiovascular Disease; Visit Provider Internal Medicine Cardiovascular Disease
DX: I34.1 Nonrheumatic mitral (valve) prolapse (principal)
CPT/HCPCS: 93306; Q9957; A4216; C8929

== ENCOUNTER → 2021-12-02 | Outpatient (CLI) | payer MEDICARE, SELFPAY ==
[2018-02-18 09:07] VITALS: BMI 23.1
[2021-12-02 12:02] LABS: Vitamin D,25 Hydroxy 65.5 ng/mL
== END | disposition home or self-care (01) ==
LOC: LAB 10:52
PROVIDERS: PCP Family Medicine
DX: E55.9 Vitamin D deficiency, unspecified (principal); M25.572 Pain in left ankle and joints of left foot
CPT/HCPCS: 36415; 82306

== ENCOUNTER → 2021-12-30 | Outpatient (CLI) | payer MEDICARE, SELFPAY ==
[2018-02-18 09:07] VITALS: BMI 23.1
[2021-12-30 12:28] LABS: Hematocrit 40.1 % (37-47); Hemoglobin 12.9 g/dL (12.0-15.0); Mean Corp Hgb Conc 32.2 g/dL (32-36); Mean Corpuscular Hgb 30.6 pg (27.0-32.0); Platelet Count 238 K/mm3 (150-450); RBC Distribution Width CV 13.4 % (11.6-14.6); RBC Distribution Width SD 46.9 fl (35.1-43.9); Red Blood Count 4.22 M/mm3 (4.2-5.4); White Blood Count 8.8 K/mm3 (4.4-11.0)
[2021-12-30 13:00] LABS: CRP < 2.90 mg/L (0.0-3.0); Rheumatoid Factor < 10.0 IU/mL (<15)
[2022-01-03 11:20] LABS: CCP IgG Antibodies 5 units (0-19)
[2022-01-04 11:11] LABS: ANTINUCLEAR ANTIBODIES DIRECT Negative (Negative)
== END | disposition home or self-care (01) ==
LOC: LAB 11:38
PROVIDERS: PCP Family Medicine; Visit Provider Podiatrist
DX: M79.674 Pain in right toe(s) (principal); M79.675 Pain in left toe(s)
CPT/HCPCS: 36415; 85027; 86038; 86140; 86200; 86225; 86235; 86431

== ENCOUNTER → 2022-11-13 | Outpatient (CLI) | payer MEDICARE, SELFPAY ==
[2018-02-18 09:07] VITALS: BMI 23.1
[2022-11-13 16:16] LABS: Absolute Lymphocyte Count 1.95 X10^3/uL (0.83-4.51); Absolute Neutrophil Count 6.1 X10^3/uL (2.0-7.7); Basophil# 0.06 X10^3/uL; Basophil% 0.7 % (0-1); Hematocrit 38.6 % (37-47); Hemoglobin 12.3 g/dL (12.0-15.0); Lymphocyte # 1.95 X10^3/ul (0.83-4.51); Lymphocyte % 22.4 % (19-41); Mean Corp Hgb Conc 31.9 g/dL (32-36); Mean Corpuscular Hgb 29.6 pg (27.0-32.0); Mean Platelet Vol. 9.5 fl (6.2-12.0); Monocyte# 0.56 X10^3/uL; Monocyte% 6.4 % (0-10); NRBC Flagged by Analyzer 0 % (0-5); Neutrophil % 70.2 % (47-70); Platelet Count 279 K/mm3 (150-450); RBC Distribution Width CV 13.9 % (11.6-14.6); RBC Distribution Width SD 47.6 fl (35.1-43.9); Red Blood Count 4.15 M/mm3 (4.2-5.4); White Blood Count 8.7 K/mm3 (4.4-11.0)
[2022-11-13 17:07] LABS: Anion Gap -1 (5-15); BUN 32 mg/dL (7-18); BUN/Creat Ratio 25.2 RATIO (10-20); Calcium,Total 8.9 mg/dL (8.5-10.1); Chloride 111 mmol/L (98-107); Creatinine, Serum 1.27 mg/dL (0.55-1.02); EST Glomerular Filtration Rate 44 mL/min (>60); Est Glom Filt Rate - Afr Amer 53 mL/min (>60); Glucose 106 mg/dL (74-106); Magnesium 2.4 mg/dL (1.6-2.6); Potassium 4.6 mmol/L (3.5-5.1); Sodium Level 139 mmol/L (136-145); Thyroid Stim Hormone (TSH) 0.77 uIU/mL (0.358-3.74)
== END | disposition home or self-care (01) ==
LOC: LAB 16:05
PROVIDERS: PCP Family Medicine; Visit Provider Nurse Practitioner Family
DX: R53.83 Other fatigue (principal); R06.09 Other forms of dyspnea; R00.2 Palpitations; J45.40 Moderate persistent asthma, uncomplicated; E78.5 Hyperlipidemia, unspecified
CPT/HCPCS: 36415; 80048; 83735; 84443; 85025

== ENCOUNTER 2022-11-14 08:28 | Emergency (ER) | payer MEDICARE, SELFPAY ==
[2018-02-18 09:07] VITALS: BMI 23.1
[2022-11-14 08:28] VITALS: BP 126/84; PULSE 80; RESP 14; TEMP 36.4; O2SAT 96; BMI 22.4
--- NOTE | 2022-11-14 08:44 | EDS_ITS ---
HPI History of Present Illness Chief Complaint: Chest Pain Detail of Chief Complaint: Chest pain Informant: patient Narrative Narrative: Patient presents to the emergency department with complaint of chest discomfort that started yesterday. Patient describes an achy and sharp pain at times. Sometimes it can last seconds and sometimes it can last minutes. Woke her up from sleep last night. She was seen by cardiology yesterday for some occasional palpitations. Patient has no heart history. No history of PE or DVT. She does have remote history of breast cancer and radiation therapy to the left breast about 3 years ago. Pain is not exertional. Pain does not radiate. She denies shortness of breath with it or nausea or vomiting. Currently there is no pain. Patient states she immediately felt better when she walked in the emergency department. Patient states that she discussed this with cardiology nurse practitioner yesterday but they did not seem concerned with her chest pain. Patient has had this pain off and on for quite a while. PFSH PFSH Medical History (Reviewed 11/13/22 @ 15:27 by Brooks Meng [employer], [employer]-C) Arthritis Asthma Cancer of left breast Fibroids Hyperlipidemia Nonrheumatic mitral (valve) prolapse Paroxysmal supraventricular tachycardia Personal history of colonic polyps Seasonal allergies Sigmoid diverticulum Home Medications Lactobacillus acidophilus (Acidophilus capsule) 10 mg PO QDAY supplement 07/23/17 [History Last Taken Unknown] fish oil-dha-epa 1,200 mg-144 mg-216 mg capsule 1 cap PO DAILY supplement 07/23/17 [History Last Taken 11/24/18] montelukast 10 mg tablet (Singulair) 10 mg PO QHS allergies 07/23/17 [History Last Taken Unknown] pravastatin 40 mg tablet (Pravachol) 40 mg PO QHS cholesterol 07/23/17 [History Last Taken Unknown] sour aviles extract 1,000 mg capsule (Tart Aviles Extract) 1,000 mg PO DAILY supplement 07/23/17 [History Last Taken Unknown] verapamil 120 mg tablet,extended release (Calan SR) 120 mg PO QHS blood pressure 07/23/17 [History Last Taken 11/28/18 21:00] fluticasone 250 mcg-salmeterol 50 mcg/dose blistr powdr for inhalation (Advair Diskus) 1 inh inhalation BID asthma 01/28/19 [History Last Taken Unknown] vitamin K2 45 mcg capsule 45 mcg PO DAILY 03/28/21 [History Last Taken Unknown] calcium carbonate 500 mg-vitamin D3 3.125 mcg (125 unit) tablet 2 tab PO DAILY 06/24/21 [History Last Taken Unknown] glucosamine [id number] adriana 1,500 mg-400 unit-100 mg tablet (Glucosamine Daily Complex) 1 tab PO DAILY 06/24/21 [History Last Taken Unknown] tamoxifen 20 mg tablet 20 mg PO DAILY 06/24/21 [History Last Taken Unknown] loratadine 10 mg tablet 10 mg PO DAILY allergies #30 tabs 08/18/21 [Rx Last Taken Unknown] meloxicam 15 mg tablet 15 mg PO DAILY 12/08/21 [History Last Taken Unknown] albuterol sulfate 90 mcg/actuation breath activated powder inhaler (ProAir RespiClick) 2 inh inhalation Q4H PRN shortness of breath or wheezing #1 ea 02/02/22 [Rx Last Taken Unknown] gabapentin 300 mg capsule 300 mg PO DAILY 02/02/22 [History Last Taken Unknown] levocetirizine 5 mg tablet 5 mg PO DAILY allergies #90 tabs 02/02/22 [Rx Last Taken Unknown] Allergy/AdvReac Type Severity Reaction Status Date / Time codeine Allergy Severe Verified 11/14/22 08:30 cyclobenzaprine Allergy Severe Verified 11/14/22 08:30 [From Flexeril] Penicillins Allergy Severe Verified 11/14/22 08:30 pineapple Allergy Severe Verified 11/14/22 08:30 Family History Father Cancer Hyperlipidemia Throat cancer Pulmonary embolism Mother Heart disease Hyperlipidemia Throat cancer Pulmonary embolism Aunt Hyperlipidemia Throat cancer Pulmonary embolism Surgical History History of appendectomy History of foot surgery History of hysterectomy History of lumpectomy of left breast Social History Smoking Status: Never smoker second hand exposure: No alcohol intake: never substance use type: does not use caffeine: No what type of physical activity do you participate in: walking frequency: 5-6 times per week seatbelt use: always do you feel safe at home: Yes additional social history: - Don Patient and are both retired ROS ROS ED Review of Systems ROS Unobtainable: other Constitutional Constitutional ED: Reports lethargy; Denies chills, fever(s), sweats or weight loss Eyes Eyes: Denies blurry vision, change in vision or diplopia ENT ENT ED: Denies rhinorrhea or sore throat Cardiovascular Cardiovascular: Reports chest pain and palpitations; Denies orthopnea or racing heartbeat Respiratory/Chest Respiratory/Chest: Denies cough, dyspnea, dyspnea on exertion, orthopnea or sputum Gastrointestinal Gastrointestinal: Denies abdominal pain, diarrhea, nausea or vomiting Genitourinary Genitourinary ED: Denies dysuria, hematuria or urinary frequency Musculoskeletal Musculoskeletal: Denies arthralgias, back pain, myalgias or neck pain Integumentary Denies abscess, Abrasions or rash Neurologic Neurologic: Denies headache(s) or weakness Psychiatric Psychiatric: Denies anxiety, depression or suicidal thoughts Endocrine Endocrinology: Denies polydipsia, polyphagia or polyuria Hematologic/Lymphatic Hematologic/Lymphatic: Denies easy bleeding, easy bruising or lymphadenopathy Allergic/Immunologic Allergic/Immunologic ED: Denies mouth swelling, tongue swelling or urticaria EXAM Physical Exam Const Vital Signs: 11/14/22 08:28 11/14/22 08:49 11/14/22 08:49 Temperature 97.5 F L Temperature Source Temporal Pulse Rate 80 Respiratory Rate 14 Respiratory Effort Normal Non-Labored Blood Pressure 126/84 H Blood Pressure Mean 98 Pulse Ox 96 Oxygen Delivery Method Room Air Room Air 11/14/22 09:42 11/14/22 11:04 Temperature Temperature Source Pulse Rate 66 65 Respiratory Rate 17 14 Respiratory Effort Blood Pressure 116/71 110/62 Blood Pressure Mean 86 78 Pulse Ox 99 100 Oxygen Delivery Method Room Air Room Air Positive well nourished and well developed General Appearance ED: well developed and NAD HEENT Reports TM's clear and moist mucous membranes normocephalic and atraumatic; Negative for trauma or tenderness Tympanic Membrane ED: Yes TM's clear Eyes PERRL and EOMs intact bilaterally General Eye ED: Negative for pale conjunctiva or scleral icterus Neck no lymphadenopathy, supple and no JVD General: Negative for tenderness Chest Wall inspection of chest normal and palpation of chest normal Chest: Negative for tenderness Resp normal respiratory effort and clear to auscultation bilaterally Effort and Inspection: Negative for respiratory distress or pain with movement Auscultation: Negative for rhonchi, wheezes or diminished lung sounds Cardio regular rate, regular rhythm, S1 normal heart sound, S2 normal heart sound and no murmurs Peripheral Pulses: pulses 2+ throughout GI normal to inspection, nondistended, normoactive bowel sounds, soft to palpation, non-tender, non-distended and no masses Back/Spine no CVA tenderness and no thoracic nor lumbar tenderness Extremity normal to inspection General Extremety ED: Negative for edema General Extremity: Negative for edema Neuro oriented x3, CN's II-XII intact bilaterally, no sensory deficits noted and gait normal Sensorium / Orientation: awake, alert, oriented to person, oriented to place and oriented to time Motor Exam: strength 5/5 throughout and strength abnormal Psych mental status grossly normal Skin no rashes or lesions noted and no wounds Heart Score History: Slightly/Non-Suspicious ECG: Normal Age: >/= 65 years Risk Factors: 1 or 2 Risk Factors Troponin: </= Normal Limit Score: 3 MDM MDM MDM Narrative Medical decision making narrative: IV line established on arrival. Patient placed on a cafeteria monitor. Patient was given aspirin. Clinically suspicion for cardiac etiology is low. CBC with differential obtained showed a white count of 8.6 with hemoglobin 12.5. D-dimer was normal 1.35. Chemistries normal. Troponin was normal at 5. 1 view chest x-ray was unremarkable. Delta troponin also normal. At this point patient will be discharged home advised to follow-up with primary care physician 5 to 7 days. Patient advised to return if exertional symptoms worsening pain, or condition worsen anyway. Patient's heart score is a 3 and I feel she is low risk for acute coronary syndrome. Lab Data Attestation: I reviewed the patient's lab results. Labs: Laboratory Results - last 24 hr 11/14/22 11/14/22 11/14/22 08:47 08:47 08:47 WBC 8.6 RBC 4.18 L Hgb 12.5 Hct 38.6 MCV 92.3 MCH 29.9 MCHC 32.4 RDW Std Deviation 47.1 H RDW Coeff of Jerry 13.8 Plt Count 269 MPV 9.7 Immature Gran % (Auto) 0.200 Neut % (Auto) 71.9 H Lymph % (Auto) 22.1 [place] % (Auto) 5.0 Eos % (Auto) 0.2 Baso % (Auto) 0.6 Absolute Neuts (auto) 6.2 Absolute Lymphs (auto) 1.90 Nucleated RBC % 0 D-Dimer Quant (PE/DVT) 0.35 Sodium 140 Potassium 3.9 Chloride 109 H Carbon Dioxide 25.0 Anion Gap 6 BUN 27 H Creatinine 0.98 Estim Creat Clear Calc 44.63 Est GFR (MDRD) Af Amer 71 Est GFR (MDRD) Non-Af 59 L BUN/Creatinine Ratio 27.5 H Glucose 119 H Calcium 8.9 Troponin I High Sens 5 11/14/22 10:52 WBC RBC Hgb Hct MCV MCH MCHC RDW Std Deviation RDW Coeff of Jerry Plt Count MPV Immature Gran % (Auto) Neut % (Auto) Lymph % (Auto) [place] % (Auto) Eos % (Auto) Baso % (Auto) Absolute Neuts (auto) Absolute Lymphs (auto) Nucleated RBC % D-Dimer Quant (PE/DVT) Sodium Potassium Chloride Carbon Dioxide Anion Gap BUN Creatinine Estim Creat Clear Calc Est GFR (MDRD) Af Amer Est GFR (MDRD) Non-Af BUN/Creatinine Ratio Glucose Calcium Troponin I High Sens 6 Radiography Chest X-Ray - ED: 1 View Diagnostic Testing: Clinical Impression(s) from Imaging Studies Chest X-Ray 11/14/22 09:00 IMPRESSION: No acute cardiopulmonary abnormality. Electronically Signed: Marshal Ferris MD at 9:23 EDT Reading Location ID and State: [address] [place] [address] Tel , Service support , 1 view chest x-ray obtained interpreted by myself as no acute disease process without evidence of infiltrate or pneumothorax. Radiology in agreement. EKG Initial EKG: Comments: Sinus rhythm with a rate of 76 bpm with no acute ST segment changes Discharge Plan Triage Chief Complaint: Chest Pain ED Provider: [place] John Dx/Rx/DC Orders Clinical Impression: Chest pain Instructions: ED Chest Pain, Uncertain Cause Prescriptions: No Action verapamil [Calan SR] 120 mg tablet extended release 120 mg PO QHS pravastatin [Pravachol] 40 mg tablet 40 mg PO QHS montelukast [Singulair] 10 mg tablet 10 mg PO QHS Lactobacillus acidophilus [Acidophilus] capsule 10 mg PO QDAY fish oil-dha-epa 1,200-144-216 mg capsule 1 cap PO DAILY sour aviles extract [Tart Aviles Extract] 1,000 mg capsule 1,000 mg PO DAILY fluticasone propion-salmeterol [Advair Diskus] 250-50 mcg/dose blister with device 1 inh INHALATION BID vitamin K2 45 mcg capsule 45 mcg PO DAILY calcium carbonate-vitamin D3 500 mg(1,250mg) -125 unit tablet 2 tab PO DAILY [id number] serr [Glucosamine Daily Complex] 1,500-400-100 mg-unit-mg tablet 1 tab PO DAILY Rx Instructions: give after food/meal tamoxifen 20 mg tablet 20 mg PO DAILY meloxicam 15 mg tablet 15 mg PO DAILY gabapentin 300 mg capsule 300 mg PO DAILY levocetirizine 5 mg tablet 5 mg PO DAILY Qty: 90 3RF ProAir RespiClick 90 mcg/actuation aerosol powdr breath activated 2 inh inhalation Q4H PRN (Reason: shortness of breath or wheezing) Qty: 1 6RF loratadine 10 mg tablet 10 mg PO DAILY Qty: 30 6RF Primary Care Provider: Ashkan Ortiz Referrals: Ashkan Ortiz MD [Primary Care Provider] - 5-7 Days Disposition Disposition: Home, Self Care
[2022-11-14 08:57] LABS: Absolute Neutrophil Count 6.2 X10^3/uL (2.0-7.7); Basophil# 0.05 X10^3/uL; Basophil% 0.6 % (0-1); Eosinophil# 0.02 X10^3/uL; Eosinophils% 0.2 % (0-5); Hematocrit 38.6 % (37-47); Hemoglobin 12.5 g/dL (12.0-15.0); Lymphocyte % 22.1 % (19-41); Mean Corp Hgb Conc 32.4 g/dL (32-36); Mean Corpuscular Hgb 29.9 pg (27.0-32.0); Mean Corpuscular Volume 92.3 fL (81-99); Mean Platelet Vol. 9.7 fl (6.2-12.0); Monocyte# 0.43 X10^3/uL; NRBC Flagged by Analyzer 0 % (0-5); Neutrophil # 6.18 X10^3/uL (2.7-7.7); Neutrophil % 71.9 % (47-70); Platelet Count 269 K/mm3 (150-450); RBC Distribution Width CV 13.8 % (11.6-14.6); RBC Distribution Width SD 47.1 fl (35.1-43.9); Red Blood Count 4.18 M/mm3 (4.2-5.4); White Blood Count 8.6 K/mm3 (4.4-11.0)
[2022-11-14] MEDS: Aspirin 81 MG TAB.CHEW 324 MG PO (08:58)
[2022-11-14] MEDS: 0.9% Normal Saline 1,000 ML 150 ML IV (08:58)
--- NOTE | 2022-11-14 09:00 | RAD_ITS ---
EXAM: XR CHEST, 1 VIEW CLINICAL INDICATION: chest pain TECHNIQUE: Frontal view of the chest. This report was created using [employer] report generation technology. COMPARISON: XR Chest dated 05/24/2021 FINDINGS: LUNGS AND PLEURAL SPACES: Normal. No consolidation or edema. No pneumothorax. No effusion. HEART: Normal heart size. MEDIASTINUM: No mediastinal or hilar mass. BONES/JOINTS: Degenerative narrowing of the right glenohumeral joint. RAD/Chest 1 View (Portable) IMPRESSION: No acute cardiopulmonary abnormality. Electronically Signed: Marshal Ferris MD at 9:23 EDT ,
[2022-11-14 09:08] LABS: D-Dimer Quantitative (DVT/PE) 0.35 FEU/ug/m (0.27-0.49)
[2022-11-14 09:14] LABS: Anion Gap 6 (5-15); BUN 27 mg/dL (7-18); BUN/Creat Ratio 27.5 RATIO (10-20); Calcium,Total 8.9 mg/dL (8.5-10.1); Chloride 109 mmol/L (98-107); Creatinine, Serum 0.98 mg/dL (0.55-1.02); EST Glomerular Filtration Rate 59 mL/min (>60); Est Glom Filt Rate - Afr Amer 71 mL/min (>60); Estimated Creatinine Clearance 44.63 ml/min; Glucose 119 mg/dL (74-106); Potassium 3.9 mmol/L (3.5-5.1); Sodium Level 140 mmol/L (136-145); Troponin-I HS (w/2H Reflex) 5 pg/mL (3.0-54.0)
[2022-11-14 09:42] VITALS: BP 116/71; PULSE 66; RESP 17; O2SAT 99
[2022-11-14 10:52] LABS: Reflex Troponin-HS? (from REC) Y
[2022-11-14 11:04] VITALS: BP 110/62; PULSE 65; RESP 14; O2SAT 100
[2022-11-14 11:19] LABS: Troponin-I HS 6 pg/mL (3.0-54.0)
[2022-11-14 11:45] VITALS: BP 110/62; PULSE 78; RESP 16; O2SAT 99
== END 2022-11-14 11:49 | disposition home or self-care (01) ==
PROVIDERS: Emergency Provider Emergency Medicine; PCP Family Medicine; Visit Provider Emergency Medicine
DX: R07.9 Chest pain, unspecified (principal); E78.5 Hyperlipidemia, unspecified; R00.2 Palpitations
CPT/HCPCS: 71045; 80048; 84484; 85025; 85379; 93005; 96360; 96361; 99285; J7030; A4216

== ENCOUNTER → 2023-01-03 | Outpatient (CLI) | payer MEDICARE, SELFPAY ==
[2018-02-18 09:07] VITALS: BMI 23.1
== END | disposition home or self-care (01) ==
LOC: PSN 08:45
PROVIDERS: PCP Family Medicine; Referring Provider Nurse Practitioner Family; Visit Provider Nurse Practitioner Family
DX: R00.2 Palpitations (principal); I47.1 Supraventricular tachycardia
CPT/HCPCS: 93225; 93226

== ENCOUNTER → 2023-01-30 | Outpatient (CLI) | payer MEDICARE, SELFPAY ==
[2018-02-18 09:07] VITALS: BMI 23.1
--- NOTE | 2023-01-30 10:40 | RAD_ITS ---
STUDY: X-RAY - RIGHT SHOULDER REASON FOR EXAM: Female, 77 years old. PAIN TECHNIQUE: 4 view(s) of the shoulder. COMPARISON: None. FINDINGS: Narrowed glenohumeral articulation. Narrowed acromioclavicular joint. Normal acromion. Spurring of the medial humeral head.. The soft tissue structures are unremarkable. Normal visualized pulmonary apex. RAD/Shoulder min 2 Views IMPRESSION: Degenerative changes. No acute fracture or other significant bony pathology Electronically Signed: Jimbo Kimbrough MD at 22:43 EDT ,
== END | disposition home or self-care (01) ==
LOC: RAD 10:28
PROVIDERS: PCP Family Medicine
DX: M19.011 Primary osteoarthritis, right shoulder (principal)
CPT/HCPCS: 73030

== ENCOUNTER → 2023-04-17 | Outpatient (CLI) | payer MEDICARE, SELFPAY ==
[2018-02-18 09:07] VITALS: BMI 23.1
== END | disposition home or self-care (01) ==
LOC: LABSPEC 15:50
PROVIDERS: PCP Family Medicine; Referring Provider Urology; Visit Provider Urology
DX: R35.1 Nocturia (principal)
CPT/HCPCS: 87086; 87088

== ENCOUNTER → 2023-04-23 | Outpatient (CLI) | payer MEDICARE, SELFPAY ==
[2018-02-18 09:07] VITALS: BMI 23.1
--- NOTE | 2023-04-23 12:36 | US_ITS ---
INDICATION: NOCTURIA EXAMINATION: Ultrasound US Kidney(s) complete (eg, kidneys and bladder) TECHNIQUE: Kuo scale and color doppler images were obtained of the kidneys. COMPARISON: CT scan of the abdomen and pelvis of 03/22/2021. FINDINGS: RIGHT KIDNEY: 9.4 x 4.3 x 4.9 cm. The renal cortex measures 1.5 cm.. There is no hydronephrosis. Hyperechoic area in the lateral inferior aspect of the right kidney measuring about 1.6 x 1.3 x 0.7 cm could represent fatty lesion such as lipoma or angiomyolipoma. LEFT KIDNEY: 10.5 x 4.6 x 5.2 cm. The renal cortex measures 1.5 cm. There is no hydronephrosis. No shadowing calculus, focal lesion or perinephric collection is demonstrated. URINARY BLADDER: The bladder is not well distended and has a prevoid volume of 21 cc. No right ureteral jet to the bladder is seen. Left ureteral jet is seen. US/Kidney and Bladder IMPRESSION: 1. No evidence of hydronephrosis. 2. Possible fatty lesion in the lower pole of right kidney which could represent lipoma or angiomyolipoma. Electronically Signed: Ari Milian MD at 10:08 EDT ,
== END | disposition home or self-care (01) ==
PROVIDERS: PCP Family Medicine; Referring Provider Urology; Visit Provider Urology
DX: R35.1 Nocturia (principal)
CPT/HCPCS: 76770

== ENCOUNTER 2023-06-19 08:54 | Day surgery (SDC) | payer MEDICARE, SELFPAY ==
[2018-02-18 09:07] VITALS: BMI 23.1
[2023-06-19] VITALS (8 sets, daily range): BP systolic 68–119; BP diastolic 34–59; PULSE 61–71; RESP 16; TEMP 36.4–36.8; O2SAT 95–100; BMI 22.0
[2023-06-19] MEDS: Lactated Ringers 1,000 ML 15 ML IV (09:21)
--- NOTE | 2023-06-19 09:26 | PCM.HP.BLA ---
History and Physical Date of Admission: 06/19/23 Visit Reasons: CONSULT FOR ENDOSCOPY Chief Complaint: endoscopy consult Is patient in pain?: No Allergies codeine Allergy (Severe, Verified 06/15/23 09:59) cyclobenzaprine [From Flexeril] Allergy (Severe, Verified 06/15/23 09:59) Penicillins Allergy (Severe, Verified 06/15/23 09:59) pineapple Allergy (Severe, Verified 06/15/23 09:59) Medications Lactobacillus acidophilus (Acidophilus capsule) 10 mg PO QDAY supplement 07/23/17 [History Confirmed 06/15/23] fish oil-dha-epa 1,200 mg-144 mg-216 mg capsule 1 cap PO DAILY supplement 07/23/17 [History Confirmed 06/15/23] montelukast 10 mg tablet (Singulair) 10 mg PO QHS allergies 07/23/17 [History Confirmed 06/15/23] pravastatin 40 mg tablet (Pravachol) 40 mg PO QHS cholesterol 07/23/17 [History Confirmed 06/15/23] sour aviles extract 1,000 mg capsule (Tart Aviles Extract) 1,000 mg PO DAILY supplement 07/23/17 [History Confirmed 06/15/23] verapamil 120 mg tablet,extended release (Calan SR) 120 mg PO QHS blood pressure 07/23/17 [History Confirmed 06/15/23] fluticasone 250 mcg-salmeterol 50 mcg/dose blistr powdr for inhalation (Advair Diskus) 1 inh inhalation BID asthma 01/28/19 [History Confirmed 06/15/23] vitamin K2 45 mcg capsule 45 mcg PO DAILY 03/28/21 [History Confirmed 06/15/23] calcium carbonate 500 mg-vitamin D3 3.125 mcg (125 unit) tablet 2 tab PO DAILY 06/24/21 [History Confirmed 06/15/23] glucosamine [id number] adriana 1,500 mg-400 unit-100 mg tablet (Glucosamine Daily Complex) 1 tab PO DAILY 06/24/21 [History Confirmed 06/15/23] meloxicam 15 mg tablet 15 mg PO DAILY 12/08/21 [History Confirmed 06/15/23] gabapentin 300 mg capsule 300 mg PO DAILY 02/02/22 [History Confirmed 06/15/23] albuterol sulfate 90 mcg/actuation breath activated powder inhaler (ProAir RespiClick) 2 inh inhalation Q4H PRN shortness of breath or wheezing #1 ea 01/30/23 [Rx Confirmed 06/15/23] loratadine 10 mg tablet 10 mg PO DAILY #90 tabs 01/30/23 [Rx Confirmed 06/15/23] omeprazole 40 mg capsule,delayed release 40 mg PO DAILY 01/30/23 [History Confirmed 06/15/23] levocetirizine 5 mg tablet 5 mg PO DAILY 03/14/23 [History Confirmed 06/15/23] tamoxifen 20 mg tablet 20 mg PO DAILY 06/15/23 [History Confirmed 06/15/23] PFSH Medical History Arthritis Asthma Cancer of left breast Fibroids Hyperlipidemia Nonrheumatic mitral (valve) prolapse Paroxysmal supraventricular tachycardia Personal history of colonic polyps Seasonal allergies Sigmoid diverticulum Surgical History History of appendectomy History of foot surgery History of hysterectomy History of lumpectomy of left breast Family History Father Cancer Hyperlipidemia Throat cancer Pulmonary embolismMother Heart disease Hyperlipidemia Throat cancer Pulmonary embolismAunt Hyperlipidemia Throat cancer Pulmonary embolism Social History Smoking Status: Never smoker second hand exposure: No alcohol intake: never substance use type: does not use caffeine: No what type of physical activity do you participate in: walking frequency: 5-6 times per week seatbelt use: always do you feel safe at home: Yes additional social history: - Don Patient and are both retired HPI HPI HPI: 78-year-old female is being referred by Dr. Ashkan Ortiz for surgical consultation regarding abdominal pain and written compromise surgical consult and recommendations will return to him. I have most recently assisted the patient with a surveillance colonoscopy on November 29, 2018 as she had had up personal history of colon polyps. Her most recent exam demonstrated hemorrhoids and some diverticulosis. Consideration for possible repeat colonoscopy at 5 years. The patient's current referral is for evaluation of bloating and left lower quadrant abdominal pain. She is also having trouble with nausea. Apparently she had a CT scan performed early April 2023. By office note report apparently that did not demonstrate anything. Possibly a left kidney stone or phlebolith. She was instructed to follow-up with Dr. Alberts urologist. Appears that her physical exam was benign. There is some concern that she is lost 7 pounds in weight. A written report has been provided of a right upper quadrant ultrasound performed at [facility] on May 14, 2023 demonstrating a normal gallbladder with a common bile duct at 5 mm. The pancreas is poorly visualized. There is also report by cardiology Brooks VILLA that on March 14, 2023 she was seen in that office recanting the patient has rapid palpitations and nonrheumatic mitral valve prolapse and hyperlipidemia. Ongoing medical management recommended. She was seen by ALLEN Emery on January 30, 2023 and ongoing follow-up of chronic asthma. That time there were no exacerbations. She has had a previous appendectomy and a previous total abdominal hysterectomy for benign disease. Zentz today with concerns about just not feeling well. She notes some 2-month history of a 5 to 6 pound weight loss left mid abdominal pain feeling of gurgling in the abdomen early satiety. No fever chills or sweats. No bright red blood per rectum or melena. She was prescribed some proton pump inhibitors that is made no change. She has not made any particular change in her diet. The discomforts and unwell feeling somewhat intermittent not constant. She recognizes that she is got decreased oral intake because of it. She states that a heating pad sometimes to the mid abdominal region will improve her comfort. I have reviewed the CT images from [place]. Maybe there is some gastric wall thickening. I personally cannot quite tell whether there is any SMA obstruction. The large bowel appears uniform throughout though she has diverticular disease and tortuosity of the sigmoid I do not see any obvious extraluminal inflammation. No signs for bowel obstruction. She states that she had lab work drawn. I do not have those results. ROS General General: Yes weight change and breast cancer; No appetite, fatigue, colon cancer or weakness HEENT HEENT: No difficulty swallowing, eye injury, eye surgery, swollen glands or hoarseness Endo Endocrine: No thyroid disease, diabetes mellitus, thyroid cancer, Hair loss, heat intolerance or cold intolerance Skin Skin: No rash or changing moles Musc Musculoskeletal: Yes arthritis; No back problems, rheumatoid arthritis, gout or joint pain Cardio Cardiovascular: Yes heart disease; No murmur, pacemaker, atrial fibrillation, high blood pressure, heart attack, heart stent, palpitations, shortness of breat with exertion or chest pain Psych Psychiatric: No depression, anxiety or hearing voices Resp Respiratory: No shortness of breath, No sleep apnea, No cough, No COPD, No asthma, No emphysema and No wheezing Gastro Gastrointestinal: Yes abdominal pain, Yes nausea or vomiting, No diarrhea, No constipation, No blood in stool, Yes acid reflux, No hemorrhoids, No ulcers, No gallbladder problem and No black,tarry stools Rylan Hematologic: No blood thinners, No blood disorders, No bleeding, No anemia and No blood clots Neuro Neurologic: No system reviewed and no additional complaints, except as documented, No as per HPI, No abnormal gait, No abnormal hearing, No abnormal movements, No abnormal speech, No behavioral changes, No burning sensations, No confusion, No convulsions, No disequilibrium, No dizziness, No localized weakness, No frequent falls, No headache(s), No lack of coordination, No loss of vision, No memory loss, No numbness, No other visual disturbances, No radicular pain, No restless legs, No sensory deficit, No syncope, No tingling, No tremor(s), No weakness and No other Exam Const General: cooperative, comfortable and no acute distress Nutritional Appearance: underweight Orientation: alert, awake and oriented x3 Eyes General: appearance normal, both eyes and all related structures Neck Neck: normal visual inspection Chest Chest palpation & inspection: normal inspection of the chest Resp Effort & Inspection: normal respiratory effort and prolonged expiratory phase Cardio Rate: regular rate Rhythm: regular rhythm GI Other: Soft, slight tenderness palpation left lower quadrant though no mass or guarding, low pitched bowel sounds, not distended Musc Cervical Spine: normal cervical lordosis Skin General: no rashes or lesions noted Neuro General: patient alert, patient awake and patient oriented x3 Extrem General: no calf tenderness Psych Appearance: grossly normal Assessment and Plan Assessment and Plan (1) Abdominal pain: Status: Acute Qualifiers: Abdominal location: generalized Qualified Code(s): R10.84 - Generalized abdominal pain Plan Generalized feeling of unwellness, some intermittent left mid abdominal pain, diminished appetite, no acute change in bowel habits. Etiology not clear. I have personally reviewed her CT images. Perhaps she has some gastric wall thickening. I am not seeing any bowel obstruction nor what I would think is acute colon pathology. I would like to obtain results of her previous laboratory. After now having reviewed her images I think pursuing an upper endoscopy would be of value. Would like to review labs before making any further determinations. I appreciate the opportunity of assisting with her surgical care. Copy: Dr. Ashkan Mixon M.D., F.A.C.S I have examined the patient and the H&P has been reviewed. There are no clinical changes since date of exam. Kumar Mixon M.D., F.A.C.S.
--- NOTE | 2023-06-19 10:00 | IMM_PTH ---
PATIENT: RIZWANA GROVE LOC: EN U#:[id number] AGE/SX: 78/F ROOM: RE06/19/[address]: Dr. Kumar Mixon MD : 1945 BED: DIS: 06/19/2023 SPEC #: [id number] RECD: 06/19/23 13:49 STATUS: YAYA REQ #: [id number] MAHSA: 06/19/23 10:[address]: Kumar Mixon DEPT: IMMUNOHISTOCHEMISTRY RECD BY: Luz Maria Modi ENTERED: 06/19/23 13:49 SP TYPE: IMMUNO OTHR DR: Dr. Ashkan Ortiz MD Tissues: B - Stomach, NOS Procedures: H Pylori (initial) PHYSICIAN & INSTITUTION [place] [id number] SPECIMEN INFORMATION: Tissue Source: B - Antrum Clinical Info: Abdominal pain Specimen Number: [id number] CPT code: 57530 METHODOLOGY: Deparaffinized sections of prefer/formalin-fixed tissue or PAP/DQ stained slides are incubated with monoclonal/polyclonal antibodies/oligonucleotide probes. Localization is made via biotin free immunoperoxidase method. Appropriate controls are performed and reacted as expected. Results on target cell population are indicated in the following table: RESULTS: ANTIBODY / CLONE RESULT Block B H Pylori (polyclonal) negative These tests were developed and their performance characteristics determined by [facility]. They may not have been cleared or approved by the U.S. Food and Drug Administration. The FDA has determined that such clearance or approval is not necessary. The above immunohistochemical/dualISH markers are ordered and reviewed by the Pathologist. INTERPRETATION: B. Antrum, biopsy: Negative for Helicobacter pylori organisms. AM:laura 06/20/2023
--- NOTE | 2023-06-19 10:00 | EGD_PTH ---
PATIENT: RIZWANA GROVE LOC: TAMY U#:[id number] AGE/SX: 78/F ROOM: RE06/19/[address]: Dr. Kumar Mixon MD : 1945 BED: DIS: 06/19/2023 SPEC #: [id number] RECD: 06/19/23 11:11 STATUS: YAYA ANDRES #: [id number] MAHSA: 06/19/23 10:[address]: Kumar Mixon DEPT: SURGICAL PATHOLOGY RECD BY: Rosina Be ENTERED: 06/19/23 12:53 SP TYPE: EGD BIOPSY OT DR: Dr. Ashkan Ortiz MD Tissues: A - Duodenum, NOS B - Gastric mucous membrane C - Esophagus, NOS D - Esophagus, NOS Procedures: Special Stain Group II Surgery Specimen Level IV Alcian Blue/PAS (control) HEADER OPERATION: EGD, biopsy PRE-OP DIAGNOSIS: Abdominal pain TISSUE SUBMITTED: A - Duodenum biopsy, B - Antrum biopsy for histo and H. pylori, C - Distal esophagus biopsy, D - Mid esophagus biopsy MICROSCOPIC DIAGNOSIS A. Duodenum, biopsy: Gastric metaplasia. Mild nonspecific chronic inflammation. B. Gastric antrum, biopsy: Mild chronic gastritis. C. Distal esophagus, biopsy: Gastroesophageal junctional mucosa with no pathologic change. No evidence of goblet cell metaplasia. See comment. D. Mid esophagus, biopsy: Fragments of benign squamous mucosa. No evidence of inflammation. AM:laura 06/20/2023 COMMENT B. The results of immunohistochemistry for Helicobacter pylori will be reported separately ([id number]). C. Alcian blue/PAS stain with matched control supports the above diagnosis. MICROSCOPIC DESCRIPTION Slides are reviewed. GROSS DESCRIPTION A - Received in fixative is one container labeled with the patient's name and designated duodenum biopsy. The specimen consists of two irregular fragments of light kaur soft tissue that in aggregate measure 0.7 x 0.5 x 0.1 cm. The specimen is totally submitted in one cassette. B - Received in fixative is one container labeled with the patient's name and designated antrum biopsy. The specimen consists of one irregular fragment of light kaur soft tissue that measures 0.5 x 0.2 x 0.1 cm. The specimen is totally submitted in one cassette. C - Received in fixative is one container labeled with the patient's name and designated distal esophagus. The specimen consists of one irregular fragment of light kaur soft tissue that measures 0.5 x 0.3 x 0.1 cm. The specimen is totally submitted in one cassette. D - Received in fixative is one container labeled with the patient's name and designated mid esophagus. The specimen consists of one irregular fragment of light kaur soft tissue that measures 0.5 x 0.5 x 0.1 cm. The specimen is totally submitted in one cassette. / AM:laura 06/19/2023 TC:3 CPT: 91775 x4, 95615
--- NOTE | 2023-06-19 10:31 | OP.EGD_ITS ---
Patient Name: Juhi Rossi Procedure Date: 06/19/2023 10:11 AM Date of : 1945 Age: 78 Procedure: Upper GI endoscopy Indications: Abdominal pain in the left upper quadrant Providers: Kumar Mixon MD Medicines: See the Anesthesia note for documentation of the administered medications Complications: No immediate complications. Procedure: Pre-Anesthesia Assessment: - Prior to the procedure, a History and Physical was performed, and patient medications and allergies were reviewed. The patient's tolerance of previous anesthesia was also reviewed. The risks and benefits of the procedure and the sedation options and risks were discussed with the patient. All questions were answered, and informed consent was obtained. Prior Anticoagulants: The patient has taken no anticoagulant or antiplatelet agents. ASA Grade Assessment: II - A patient with mild systemic disease. After reviewing the risks and benefits, the patient was deemed in satisfactory condition to undergo the procedure. After obtaining informed consent, the endoscope was passed under direct vision. Throughout the procedure, the patient's blood pressure, pulse, and oxygen saturations were monitored continuously. The Endoscope was introduced through the mouth, and advanced to the second part of duodenum. The upper GI endoscopy was accomplished without difficulty. The patient tolerated the procedure well. Scope In: 10:16:47 AM Scope Out: 10:23:11 AM Total Procedure Duration Time 0 hours 6 minutes 24 seconds Findings: The middle third of the esophagus was normal. Biopsies were taken with a cold forceps for histology. The distal esophagus was normal. Biopsies were taken with a cold forceps for histology. The entire examined stomach was normal. Biopsies were taken with a cold forceps for histology. The examined duodenum was normal. Biopsies were taken with a cold forceps for histology. Impression: - Normal middle third of esophagus. Biopsied. - Normal distal esophagus. Biopsied. - Normal stomach. Biopsied. - Normal examined duodenum. Biopsied. Recommendation: - Discharge patient to home. - Resume previous diet. - Continue present medications. - Await pathology results. - Telephone my office for pathology results in 1 week. No findings to correlate with pt. symptoms--she states,however, that she is feeling some better. Procedure Code(s): --- Professional --- 13891, Esophagogastroduodenoscopy, flexible, transoral; with biopsy, single or multiple Diagnosis Code(s): --- Professional --- R10.12, Left upper quadrant pain CPT copyright 2021 [employer]. All rights reserved. The codes documented in this report are preliminary and upon chief operator lock tender review may be revised to meet current compliance requirements. Kumar Mixon MD 06/19/2023 10:31:03 AM This report has been signed electronically. Number of Addenda: 0 Note Initiated On: 06/19/2023 10:11 AM
--- NOTE | 2023-06-19 10:31 | OP.CCLET_ITS ---
06/19/2023 Ashkan Ortiz Md Re : Upper GI endoscopy procedure for Juhi Rossi Dear Angel This procedure was performed on Monday, June 19, 2023. My impressions and recommendations are as follows: Impressions : - Normal middle third of esophagus. Biopsied. - Normal distal esophagus. Biopsied. - Normal stomach. Biopsied. - Normal examined duodenum. Biopsied. Recommendations : - Discharge patient to home. - Resume previous diet. - Continue present medications. - Await pathology results. - Telephone my office for pathology results in 1 week. No findings to correlate with pt. symptoms--she states,however, that she is feeling some better. My findings are described in the full procedure note, which is enclosed. If I can be of further assistance, please feel free to contact me at Doctor phone number(s): Work: . Sincerely, Kumar Mixon MD 06/19/2023 10:31:03 AM This report has been signed electronically.
== END 2023-06-19 11:34 | disposition home or self-care (01) ==
LOC: EN 08:55 → AC 08:57
PROVIDERS: PCP Family Medicine; Referring Provider Family Medicine; Visit Provider Surgery
PROC: 0DJ08ZZ Inspection of Upper Intestinal Tract, Via Natural or Artificial Opening Endoscopic (ICD-10-PCS; CPT 43235; principal; 2023-06-19 09:55)
DX: K31.A0 Gastric intestinal metaplasia, unspecified (principal); E78.5 Hyperlipidemia, unspecified; J45.909 Unspecified asthma, uncomplicated; Z90.49 Acquired absence of other specified parts of digestive tract; Z86.010 Personal history of colon polyps; Q43.8 Other specified congenital malformations of intestine; K29.50 Unspecified chronic gastritis without bleeding; K29.80 Duodenitis without bleeding; Z79.899 Other long term (current) drug therapy; K21.9 Gastro-esophageal reflux disease without esophagitis; Z87.19 Personal history of other diseases of the digestive system
CPT/HCPCS: 43239; 88305; 88313; 88342; J7120; J2405

== ENCOUNTER 2023-07-10 08:19 | Emergency (ER) | payer MEDICARE, SELFPAY ==
[2018-02-18 09:07] VITALS: BMI 23.1
[2023-07-10 08:20] VITALS: BP 136/73; PULSE 84; RESP 14; TEMP 36.2; O2SAT 98; BMI 21.7
--- NOTE | 2023-07-10 08:34 | RAD_ITS ---
STUDY: X-RAY CHEST REASON FOR EXAM: Female, 78 years old. Chest pain TECHNIQUE: Single AP portable view of the chest. COMPARISON: Comparison is made with prior study dated November 14, 2022. FINDINGS: EKG electrodes are seen. There is hyperinflation of the lungs consistent with chronic obstructive lung disease (COPD). There is no demonstrated pleural abnormality. Normal size heart. Normal mediastinum and humberto. Normal visualized pulmonary arteries. Normal visualized aortic arch and descending thoracic aorta. Normal visualized thoracic spine. Normal visualized ribs, clavicles, and shoulders. There is no demonstrated abnormality of the visualized soft tissue structures of the upper abdomen. RAD/Chest 1 View (Portable) IMPRESSION: Hyperinflation. No acute abnormality is seen. Electronically Signed: Cristhian Lee MD at 9:43 EST ,
[2023-07-10 08:35] VITALS: O2SAT 98
[2023-07-10 08:40] LABS: Absolute Lymphocyte Count 1.75 X10^3/uL (0.83-4.51); Absolute Neutrophil Count 5.3 X10^3/uL (2.0-7.7); Basophil# 0.06 X10^3/uL; Basophil% 0.8 % (0-1); Hematocrit 35.2 % (37-47); Lymphocyte # 1.75 X10^3/ul (0.83-4.51); Lymphocyte % 23.2 % (19-41); Mean Corp Hgb Conc 31.3 g/dL (32-36); Mean Corpuscular Hgb 28.6 pg (27.0-32.0); Mean Corpuscular Volume 91.4 fL (81-99); Mean Platelet Vol. 9.7 fl (6.2-12.0); Monocyte# 0.43 X10^3/uL; Monocyte% 5.7 % (0-10); NRBC Flagged by Analyzer 0 % (0-5); Neutrophil # 5.27 X10^3/uL (2.7-7.7); Neutrophil % 69.9 % (47-70); Platelet Count 289 K/mm3 (150-450); RBC Distribution Width CV 14.4 % (11.6-14.6); RBC Distribution Width SD 48.4 fl (35.1-43.9); Red Blood Count 3.85 M/mm3 (4.2-5.4); White Blood Count 7.5 K/mm3 (4.4-11.0)
--- NOTE | 2023-07-10 08:42 | ED.VIS.CHEST ---
HPI History of Present Illness Chief Complaint: Chest Pain Informant: patient Onset/Context/Timing Onset: Yesterday and Hours Activity at onset: gradual Timing: Continuous Quality: Positive for - (Stinging) Location: Left Parasternal Current Severity: Mild Maximum Severity: Mild Worsened By: Nothing Relieved By: Nothing Associated Symptoms: Negative for Nausea, Vomiting, Diaphoresis, Dyspnea, Cough, Fever, Lightheadedness, Acid Reflux or Palpitations Narrative Narrative: 78-year-old female past medical history of breast cancer. No prior cardiac history. 2 years ago a negative stress test. She has never had a heart catheterization. States last night around 9:30 pm around bedtime she started having a stinging left parasternal chest discomfort. Nothing particular makes it feel better or worse. It is not exertional. She has had no recent exertional dyspnea no exertional chest pain. No prior history of DVT or PE or recent risk factors. She denies any nausea, diaphoresis or shortness of breath. No hemoptysis. No leg swelling. Prior Similar Symptoms: Yes Recent Illness/Hospitalization: No CVD Risk Factors: Negative for Hypertension, Diabetes or Hypercholesterolemia PE Risk Factors: Negative for Recent Travel/Surgery, Recent Immobilization, Prior DVT or PE, Cancer or OCP + Smoking + >/=35 TAD Risk Factors: Negative for Marfan's Syndrome [facility] Medical History Arthritis Asthma Cancer of left breast Cardiology follow-up encounter Chronic cough Easy bruising Fibroids Gastric reflux History of echocardiogram History of Holter monitoring History of irregular heartbeat History of steroid therapy History of stress test Hyperlipidemia Leg cramps Non-smoker Nonrheumatic mitral (valve) prolapse Paroxysmal supraventricular tachycardia Personal history of colonic polyps Seasonal allergies Sigmoid diverticulum Wears glasses Home Medications Lactobacillus acidophilus (Acidophilus capsule) 10 mg PO QDAY supplement 07/23/17 [History Last Taken 06/18/23] fish oil-dha-epa 1,200 mg-144 mg-216 mg capsule 1 cap PO DAILY supplement 07/23/17 [History Last Taken 06/18/23] montelukast 10 mg tablet (Singulair) 10 mg PO QHS allergies 07/23/17 [History Last Taken 06/18/23] pravastatin 40 mg tablet (Pravachol) 40 mg PO QHS cholesterol 12/18/17 [History Last Taken 06/18/23] sour aviles extract 1,000 mg capsule (Tart Aviles Extract) 1,000 mg PO DAILY supplement 07/23/17 [History Last Taken 06/18/23] verapamil 120 mg tablet,extended release (Calan SR) 120 mg PO QHS blood pressure 07/23/17 [History Last Taken 06/18/23] fluticasone 250 mcg-salmeterol 50 mcg/dose blistr powdr for inhalation (Advair Diskus) 1 inh inhalation BID asthma 01/28/19 [History Last Taken 06/19/23] vitamin K2 45 mcg capsule 45 mcg PO DAILY 03/28/21 [History Last Taken 06/18/23] calcium carbonate 500 mg-vitamin D3 3.125 mcg (125 unit) tablet 2 tab PO DAILY 06/24/21 [History Last Taken 06/18/23] glucosamine [id number] adriana 1,500 mg-400 unit-100 mg tablet (Glucosamine Daily Complex) 1 tab PO DAILY 06/24/21 [History Last Taken 06/18/23] meloxicam 15 mg tablet 15 mg PO DAILY 12/08/21 [History Last Taken 06/18/23] gabapentin 300 mg capsule 300 mg PO DAILY 02/02/22 [History Last Taken 06/18/23] albuterol sulfate 90 mcg/actuation breath activated powder inhaler (ProAir RespiClick) 2 inh inhalation Q4H PRN shortness of breath or wheezing #1 ea 01/30/23 [Rx Last Taken Unknown] loratadine 10 mg tablet 10 mg PO DAILY #90 tabs 01/30/23 [Rx Last Taken 06/18/23] omeprazole 40 mg capsule,delayed release 40 mg PO DAILY 01/30/23 [History Last Taken 06/19/23] levocetirizine 5 mg tablet 5 mg PO DAILY 03/14/23 [History Last Taken 06/18/23] tamoxifen 20 mg tablet 20 mg PO DAILY 06/15/23 [History Last Taken 06/18/23] multivitamin (Daily Multi-Vitamin tablet) 1 tab PO DAILY 06/18/23 [History Last Taken 06/18/23] Allergy/AdvReac Type Severity Reaction Status Date / Time codeine Allergy Severe Verified 07/10/23 08:20 cyclobenzaprine Allergy Severe Verified 07/10/23 08:20 [From Flexeril] Penicillins Allergy Severe Verified 07/10/23 08:20 pineapple Allergy Severe Verified 07/10/23 08:20 Family History Father Cancer Hyperlipidemia Throat cancer Pulmonary embolism Mother Heart disease Hyperlipidemia Throat cancer Pulmonary embolism Aunt Hyperlipidemia Throat cancer Pulmonary embolism Surgical History History of appendectomy History of colonoscopy History of foot surgery History of hysterectomy History of lumpectomy of left breast Social History Smoking Status: Never smoker second hand exposure: No alcohol intake: never substance use type: does not use caffeine: No what type of physical activity do you participate in: walking frequency: 5-6 times per week seatbelt use: always do you feel safe at home: Yes additional social history: - Don Patient and are both retired ROS ROS ED ROS Narrative Atypical nonexertional chest pain. No recent illness. Review of Systems ROS Unobtainable: Denies due to encephalopathy Constitutional Constitutional ED: Denies chills or fever(s) Eyes Eyes: Reports none ENT ENT ED: Denies ear pain Cardiovascular Cardiovascular: Reports chest pain; Denies palpitations or racing heartbeat Respiratory/Chest Respiratory/Chest: Denies cough, dyspnea or dyspnea on exertion Gastrointestinal Gastrointestinal: Denies abdominal pain Genitourinary Genitourinary ED: Denies dysuria or hematuria Musculoskeletal Musculoskeletal: Denies arthralgias Integumentary Denies abscess Neurologic Neurologic: Denies headache(s) Psychiatric Psychiatric: Denies anxiety Endocrine Endocrinology: Denies cold intolerance Hematologic/Lymphatic Hematologic/Lymphatic: Denies easy bleeding or easy bruising Allergic/Immunologic Allergic/Immunologic ED: Denies mouth swelling or tongue swelling EXAM Physical Exam Narrative Exam Narrative: 78-year-old female. Vital signs are stable afebrile. Pulse ox 98% on room air no signs of hypoxia. HEENT exam unremarkable. Neck nontender. No JVD. Lungs clear to auscultation bilaterally. Heart regular rhythm rate about 80 no murmur. Chest wall has mild reproducible tenderness at the left parasternal border. There is no ecchymosis or bruising. No subcu air crepitance. Abdomen is soft and nontender. Moving all 4 extremities. Radial pulses equal and symmetrical. Calves are nontender without edema or cords. Normal motor strength and range of motion. Neurologically she is awake and alert with no focal motor deficits. Const Vital Signs: 07/10/23 08:20 07/10/23 08:35 07/10/23 11:11 Temperature 97.2 F L Temperature Source Temporal Pulse Rate 84 70 Respiratory Rate 14 18 Blood Pressure 136/73 H Blood Pressure Mean 94 Pulse Ox 98 98 99 Oxygen Delivery Method Room Air Room Air Room Air Positive well nourished and well developed; Negative for obese, cachectic, contractures or unkempt General Appearance ED: well developed and NAD; Negative for unkempt, cachectic, contractures or pallor Nutritional Appearance: Negative for cachectic or obese HEENT Reports moist mucous membranes normocephalic and atraumatic; Negative for trauma or tenderness Eyes PERRL and EOMs intact bilaterally General Eye ED: Negative for pale conjunctiva or scleral icterus Neck no lymphadenopathy, supple and no JVD General: Negative for tenderness Chest Wall inspection of chest normal; Negative for palpation of chest normal Chest Narrative: Left parasternal tenderness. Chest: tenderness Resp normal respiratory effort Effort and Inspection: Negative for respiratory distress Auscultation: Negative for rales, rhonchi or wheezes Cardio regular rate, regular rhythm, S1 normal heart sound, S2 normal heart sound and no murmurs Rate: Negative for bradycardia or tachycardic Rhythm: Negative for abnormal rhythm Peripheral Pulses: pulses 2+ throughout GI normal to inspection, nondistended, normoactive bowel sounds, soft to palpation, non-tender, non-distended and no masses Auscultation: Negative for hyperactive bowel sounds Palpation: Negative for splenomegaly, mass or other Back/Spine no CVA tenderness and no thoracic nor lumbar tenderness General Back: Negative for CVA tenderness Cervical Spine: Negative for cervical spine tenderness Extremity normal to inspection General Extremety ED: Negative for edema or pulses abnormal General Extremity: Negative for edema or pulses abnormal Neuro oriented x3 and CN's II-XII intact bilaterally Sensorium / Orientation: awake, alert, oriented to person, oriented to place and oriented to time; Negative for confused, lethargic or stuporous Motor Exam: strength 5/5 throughout Psych mental status grossly normal Appearance: Negative for unkempt Attitude: No agitated Mood & Affect: Negative for depressed, anxious or tearful Skin no rashes or lesions noted and no wounds General Skin Exam: Negative for jaundice or pallor Rashes: No rashes noted Trauma: Negative for abrasion or laceration Heart Score History: Slightly/Non-Suspicious ECG: Normal Age: >/= 65 years Risk Factors: No Risk Factors Troponin: </= Normal Limit Score: 2 MDM MDM MDM Narrative Medical decision making narrative: 78-year-old female with atypical chest pain there is a reproducible component to it of the left parasternal chest. She undergo cardiac workup. Patient doing well at 9:40 AM. We went over her initial test results. Awaiting the 2-hour troponin. Repeat exam patient is doing well at 11:15 AM. She will be discharged home. Outpatient follow-up. History & Record Review Discussion w/independent historian: Patient Additional record(s) reviewed:: Prior inpatient record, Prior outpatient record, Prior ED visit, Prior labs and No prior records Lab Data Attestation: I reviewed the patient's lab results. Lab results narrative: CBC shows a white count 7.5. H&H of 11 and 35.2. Platelets 289. Lecture lites show a gap of 4 BUN and creatinine 28 and 1. Glucose 94. Troponin is 4. 2-hour troponin is 7. Labs: Laboratory Results - last 24 hr 07/10/23 07/10/23 08:30 10:50 WBC 7.5 RBC 3.85 L Hgb 11.0 L Hct 35.2 L MCV 91.4 MCH 28.6 MCHC 31.3 L RDW Std Deviation 48.4 H RDW Coeff of Jerry 14.4 Plt Count 289 MPV 9.7 Immature Gran % (Auto) 0.400 Neut % (Auto) 69.9 Lymph % (Auto) 23.2 [place] % (Auto) 5.7 Eos % (Auto) 0.0 Baso % (Auto) 0.8 Absolute Neuts (auto) 5.3 Absolute Lymphs (auto) 1.75 Nucleated RBC % 0 Sodium 139 Potassium 3.8 Chloride 108 H Carbon Dioxide 27.0 Anion Gap 4 L BUN 28 H Creatinine 1.04 H Estim Creat Clear Calc 43.08 Est GFR (MDRD) Af Amer 66 Est GFR (MDRD) Non-Af 55 L BUN/Creatinine Ratio 26.9 H Glucose 94 Calcium 8.7 Troponin I High Sens 4 7 Radiography Chest X-Ray - ED: 1 View, Read by ED Physician, Heart, Lungs, Mediastinum, Bony Structures, No Acute Disease and Chronic Changes Diagnostic Testing: Clinical Impression(s) from Imaging Studies Chest X-Ray 07/10/23 08:34 IMPRESSION: Hyperinflation. No acute abnormality is seen. Electronically Signed: Cristhian Lee MD at 9:43 EST , Chest x-ray, portable, single view, interpreted by myself shows no acute abnormality. Normal cardiac silhouette. Chronic changes. Rhythm Strip Rhythm Strip: Sinus Rhythm Rate: 79 Ectopy: None EKG Initial EKG: Attestation: I personally reviewed and interpreted this EKG as follows: Interpretation: Sinus Rhythm and No Acute Injury Pattern Comments: Normal sinus rhythm rate of 79 no acute signs of NM nor ischemia. Unchanged from prior EKG earlier this year. Prior EKG tracings: available for review Prior: Unchanged Discharge Plan Triage Chief Complaint: Chest Pain ED Provider: Guillermo Brush Dx/Rx/DC Orders Clinical Impression: History of breast cancer, Chest pain Instructions: ED Chest Pain, Uncertain Cause Prescriptions: No Action verapamil [Calan SR] 120 mg tablet extended release 120 mg PO QHS pravastatin [Pravachol] 40 mg tablet 40 mg PO QHS montelukast [Singulair] 10 mg tablet 10 mg PO QHS Lactobacillus acidophilus [Acidophilus] capsule 10 mg PO QDAY fish oil-dha-epa 1,200-144-216 mg capsule 1 cap PO DAILY sour aviles extract [Tart Aviles Extract] 1,000 mg capsule 1,000 mg PO DAILY fluticasone propion-salmeterol [Advair Diskus] 250-50 mcg/dose blister with device 1 inh INHALATION BID vitamin K2 45 mcg capsule 45 mcg PO DAILY calcium carbonate-vitamin D3 500 mg(1,250mg) -125 unit tablet 2 tab PO DAILY [id number] serr [Glucosamine Daily Complex] 1,500-400-100 mg-unit-mg tablet 1 tab PO DAILY Rx Instructions: give after food/meal meloxicam 15 mg tablet 15 mg PO DAILY gabapentin 300 mg capsule 300 mg PO DAILY omeprazole 40 mg capsule,delayed release(DR/EC) 40 mg PO DAILY Patient Comments: take 1 capsule by mouth once daily ProAir RespiClick 90 mcg/actuation aerosol powdr breath activated 2 inh inhalation Q4H PRN (Reason: shortness of breath or wheezing) Qty: 1 6RF loratadine 10 mg tablet 10 mg PO DAILY Qty: 90 3RF Hold Instructions: Pt has been DC'd levocetirizine 5 mg tablet 5 mg PO DAILY tamoxifen 20 mg tablet 20 mg PO DAILY multivitamin [Daily Multi-Vitamin] Tablet 1 tab PO DAILY Primary Care Provider: Ashkan Ortiz Referrals: Shai Kim MD [Med Staff - Active Staff] - As Needed Ashkan Ortiz MD [Primary Care Provider] - As Needed Activity Restrictions/Additional Instructions: Your test today were unremarkable other than you have a very mild anemia your hemoglobin was 11.0 normal is 12. Call and follow-up with your primary care physician and/or doctor for as needed. Disposition Disposition: Home, Self Care
[2023-07-10] MEDS: Aspirin 81 MG TAB.CHEW 324 MG PO (08:46)
[2023-07-10 08:58] LABS: Anion Gap 4 (5-15); BUN 28 mg/dL (7-18); BUN/Creat Ratio 26.9 RATIO (10-20); Calcium,Total 8.7 mg/dL (8.5-10.1); Chloride 108 mmol/L (98-107); Creatinine, Serum 1.04 mg/dL (0.55-1.02); EST Glomerular Filtration Rate 55 mL/min (>60); Est Glom Filt Rate - Afr Amer 66 mL/min (>60); Estimated Creatinine Clearance 43.08 ml/min; Glucose 94 mg/dL (74-106); Potassium 3.8 mmol/L (3.5-5.1); Sodium Level 139 mmol/L (136-145); Troponin-I HS (w/2H Reflex) 4 pg/mL (3.0-54.0)
[2023-07-10 10:38] LABS: Reflex Troponin-HS? (from REC) Y
[2023-07-10 11:11] VITALS: PULSE 70; RESP 18; O2SAT 99
[2023-07-10 11:14] LABS: Troponin-I HS 7 pg/mL (3.0-54.0)
[2023-07-10 11:18] VITALS: PULSE 69; RESP 18; O2SAT 100
== END 2023-07-10 11:23 | disposition home or self-care (01) ==
PROVIDERS: Emergency Provider Emergency Medicine; PCP Family Medicine; Referring Provider Emergency Medicine; Visit Provider Emergency Medicine
DX: R07.89 Other chest pain (principal); E78.5 Hyperlipidemia, unspecified; Z85.3 Personal history of malignant neoplasm of breast; Z79.899 Other long term (current) drug therapy
CPT/HCPCS: 71045; 80048; 84484; 85025; 93005; 99284

== ENCOUNTER 2023-12-04 07:30 | Day surgery (SDC) | payer MEDICARE, SELFPAY ==
[2018-02-18 09:07] VITALS: BMI 23.1
[2023-12-04] VITALS (7 sets, daily range): BP systolic 68–122; BP diastolic 38–55; PULSE 66–74; RESP 16–18; TEMP 36.3–36.6; O2SAT 98–100; BMI 21.3
--- NOTE | 2023-12-04 07:49 | HP.PCM_ITS ---
History and Physical Date of Admission: 12/04/23 Visit Reasons: RECALL LETTER- COLONOSCOPY Chief Complaint: recall letter- colonoscopy Claims Auditor Required: No Accompanied by: Is patient in pain?: No Allergies codeine Allergy (Severe, Verified 10/29/23 13:35) cyclobenzaprine [From Flexeril] Allergy (Severe, Verified 10/29/23 13:35) Penicillins Allergy (Severe, Verified 10/29/23 13:35) pineapple Allergy (Severe, Verified 10/29/23 13:35) Medications Lactobacillus acidophilus (Acidophilus capsule) 10 mg PO QDAY supplement 07/23/17 [History Confirmed 10/29/23] fish oil-dha-epa 1,200 mg-144 mg-216 mg capsule 1 cap PO DAILY supplement 07/23/17 [History Confirmed 10/29/23] montelukast 10 mg tablet (Singulair) 10 mg PO QHS allergies 07/23/17 [History Confirmed 10/29/23] pravastatin 40 mg tablet (Pravachol) 40 mg PO QHS cholesterol 07/23/17 [History Confirmed 10/29/23] sour aviles extract 1,000 mg capsule (Tart Aviles Extract) 1,000 mg PO DAILY supplement 07/23/17 [History Confirmed 10/29/23] verapamil 120 mg tablet,extended release (Calan SR) 120 mg PO QHS blood pressure 07/23/17 [History Confirmed 10/29/23] fluticasone 250 mcg-salmeterol 50 mcg/dose blistr powdr for inhalation (Advair Diskus) 1 inh inhalation BID asthma 01/28/19 [History Confirmed 10/29/23] vitamin K2 45 mcg capsule 45 mcg PO DAILY 03/28/21 [History Confirmed 10/29/23] calcium carbonate 500 mg-vitamin D3 3.125 mcg (125 unit) tablet 2 tab PO DAILY 06/24/21 [History Confirmed 10/29/23] glucosamine [id number]-[id number] adriana 1,500 mg-400 unit-100 mg tablet (Glucosamine Daily Complex) 1 tab PO DAILY 06/24/21 [History Confirmed 10/29/23] meloxicam 15 mg tablet 15 mg PO DAILY 12/08/21 [History Confirmed 10/29/23] gabapentin 300 mg capsule 300 mg PO DAILY 02/02/22 [History Confirmed 10/29/23] albuterol sulfate 90 mcg/actuation breath activated powder inhaler (ProAir RespiClick) 2 inh inhalation Q4H PRN shortness of breath or wheezing #1 ea 01/30/23 [Rx Confirmed 10/29/23] omeprazole 40 mg capsule,delayed release 40 mg PO DAILY 01/30/23 [History Confirmed 10/29/23] levocetirizine 5 mg tablet 5 mg PO DAILY 03/14/23 [History Confirmed 10/29/23] tamoxifen 20 mg tablet 20 mg PO DAILY 06/15/23 [History Confirmed 10/29/23] multivitamin (Daily Multi-Vitamin tablet) 1 tab PO DAILY 06/18/23 [History Confirmed 10/29/23] prednisone 10 mg tablet 10 mg PO DAILY #20 tabs 08/02/23 [Rx Confirmed 10/29/23] loratadine 10 mg tablet 10 mg PO DAILY #90 tabs 10/15/23 [Rx Confirmed 10/29/23] PFS Medical History (Updated 10/29/23 @ 15:[address] Kumar Mixon MD) Arthritis Asthma Cancer of left breast Cardiology follow-up encounter Chronic cough Easy bruising Fibroids Gastric reflux History of echocardiogram History of Holter monitoring History of irregular heartbeat History of steroid therapy History of stress test Hyperlipidemia Leg cramps Non-smoker Nonrheumatic mitral (valve) prolapse Paroxysmal supraventricular tachycardia Personal history of colonic polyps Seasonal allergies Sigmoid diverticulum Wears glasses Surgical History History of appendectomy History of colonoscopy History of foot surgery History of hysterectomy History of lumpectomy of left breast Family History Father Cancer Hyperlipidemia Throat cancer Pulmonary embolismMother Heart disease Hyperlipidemia Throat cancer Pulmonary embolismAunt Hyperlipidemia Throat cancer Pulmonary embolism Social History Smoking Status: Never smoker second hand exposure: No alcohol intake: never substance use type: does not use caffeine: No what type of physical activity do you participate in: walking frequency: 5-6 times per week seatbelt use: always do you feel safe at home: Yes additional social history: - Don Patient and are both retired HPI HPI HPI: 78-year-old female. Primary care physician is Dr. Ashkan Ortiz. I have recently assisted to the patient on June 19, 2023 with an esophagogastroduodenoscopy which was performed as the patient was having left upper quadrant abdominal pain. Pathology of the duodenum showed gastric metaplasia with mild nonspecific inflammation. Some mild chronic gastritis. No change at the EG junction or mid esophagus. H. pylori wasNegative. Her previous colonoscopy of November 29, 2018 demonstrated hemorrhoids and diverticulosis of the sigmoid colon. She had a prior colonoscopy to that by Dr. Joseph Hong [facility] on November 22, 2014 demonstrating a 5 mm transverse colon tubular adenoma. In addition the patient's had a history 2018 of breast cancer that was treated at the [facility]. She presents today without any specific concerns. No bright red blood per rectum or melena. She otherwise is enjoying a good state of health. My previous notes from June 19, 2023 reflect the following 78-year-old female is being referred by Dr. Ashkan Ortiz for surgical consultation regarding abdominal pain and written compromise surgical consult and recommendations will return to him. I have most recently assisted the tucker castillo with a surveillance colonoscopy on November 29, 2018 as she had had up personal history of colon polyps. Her most recent exam demonstrated hemorrhoids and some diverticulosis. Consideration for possible repeat colonoscopy at 5 years. The patient's current referral is for evaluation of bloating and left lower quadrant abdominal pain. She is also having trouble with nausea. Apparently she had a CT scan performed early April 2023. By office note report apparently that did not demonstrate anything. Possibly a left kidney stone or phlebolith. She was instructed to follow-up with Dr. Alberts urologist. Appears that her physical exam was benign. There is some concern that she is lost 7 pounds in weight. A written report has been provided of a right upper quadrant ultrasound performed at [facility] on May 14, 2023 demonstrating a normal gallbladder with a common bile duct at 5 mm. The pancreas is poorly visualized. There is also report by cardiology Brooks VILLA that on March 14, 2023 she was seen in that office recanting the patient has rapid palpitations and nonrheumatic mitral valve prolapse and hyperlipidemia. Ongoing medical management recommended. She was seen by ALLEN Emery on January 30, 2023 and ongoing follow-up of chronic asthma. That time there were no exacerbations. She has had a previous appendectomy and a previous total abdominal hysterectomy for benign disease. [place] today with concerns about just not feeling well. She notes some 2-month history of a 5 to 6 pound weight loss left mid abdominal pain feeling of g urgling in the abdomen early satiety. No fever chills or sweats. No bright red blood per rectum or melena. She was prescribed some proton pump inhibitors that is made no change. She has not made any particular change in her diet. The discomforts and unwell feeling somewhat intermittent not constant. She recognizes that she is got decreased oral intake because of it. She states that a heating pad sometimes to the mid abdominal region will improve her comfort. I have reviewed the CT images from [place]. Maybe there is some gastric wall thickening. I personally cannot quite tell whether there is any SMA obstruction. The large bowel appears uniform throughout though she has diverticular disease and tortuosity of the sigmoid I do not see any obvious extraluminal inflammation. No signs for bowel obstruction. ROS General General: Yes breast cancer; No weight change, appetite, fatigue, colon cancer or weakness HEENT HEENT: No difficulty swallowing, eye injury, eye surgery, swollen glands or hoarseness Endo Endocrine: No thyroid disease, diabetes mellitus, thyroid cancer, Hair loss, heat intolerance or cold intolerance Skin Skin: No rash or changing moles Musc Musculoskeletal: Yes arthritis; No back problems, rheumatoid arthritis, gout or joint pain Cardio Cardiovascular: No murmur, pacemaker, heart disease, atrial fibrillation, high blood pressure, heart attack, heart stent, palpitations, shortness of breat with exertion or chest pain Psych Psychiatric: No depression, anxiety or hearing voices Resp Respiratory: No shortness of breath, No sleep apnea, Yes cough, No COPD, Yes asthma, No emphysema and No wheezing Gastro Gastrointestinal: Yes abdominal pain, No nausea or vomiting, No diarrhea, No constipation, No blood in stool, Yes acid reflux, No hemorrhoids, No ulcers, No gallbladder problem and No black,tarry stools Rylan Hematologic: No blood thinners, No blood disorders, No bleeding, No anemia and No blood clots Neuro Neurologic: No numbness, No tingling and No weakness Exam Const General: cooperative, healthy appearing, comfortable and no acute distress Orientation: alert and awake [facility] Head: normal to inspection Eyes General: appearance normal, both eyes and all related structures Neck Neck: normal visual inspection Chest Chest palpation & inspection: normal inspection of the chest Resp Effort & Inspection: normal respiratory effort Auscultation: clear to auscultation bilaterally Cardio Rate: regular rate Rhythm: regular rhythm Musc Cervical Spine: normal cervical lordosis Skin General: no rashes or lesions noted Neuro General: patient alert and patient awake Extrem General: no calf tenderness Psych Appearance: grossly normal Assessment and Plan Assessment and Plan (1) Personal history of colonic polyps: Status: Acute Plan I recommend to the patient a colonoscopy with possible biopsy or polypectomy as indicated. She has a personal history of colon polyps. Previous colonoscopy was November 2018. She has had an opportunity to ask questions answered. We will schedule procedure at her discretion. I appreciate the ongoing opportunity of a ssisting with her surgical care. She brought the Carol treats. Copy: Dr. Ashkan Mixon M.D., F.A.C.S I have examined the patient and the H&P has been reviewed. There are no clinical changes since date of exam. Kumar Mixon M.D., F.A.C.S.
[2023-12-04] MEDS: Lactated Ringers 1,000 ML 15 ML IV (08:02)
--- NOTE | 2023-12-04 08:54 | OP.COLON_ITS ---
Patient Name: Juhi Rossi Procedure Date: 12/04/2023 8:23 AM Date of : 1945 Age: 78 Procedure: Colonoscopy Indications: High risk colon cancer surveillance: Personal history of colonic polyps Providers: Kumar Mixon MD Medicines: See the Anesthesia note for documentation of the administered medications Patient Profile: Last Colonoscopy: November 2018. Complications: No immediate complications. Procedure: Pre-Anesthesia Assessment: - Prior to the procedure, a History and Physical was performed, and patient medications and allergies were reviewed. The patient's tolerance of previous anesthesia was also reviewed. The risks and benefits of the procedure and the sedation options and risks were discussed with the patient. All questions were answered, and informed consent was obtained. Prior Anticoagulants: The patient has taken no anticoagulant or antiplatelet agents. ASA Grade Assessment: II - A patient with mild systemic disease. After reviewing the risks and benefits, the patient was deemed in satisfactory condition to undergo the procedure. After I obtained informed consent, the scope was passed under direct vision. Throughout the procedure, the patient's blood pressure, pulse, and oxygen saturations were monitored continuously. The colonoscope was introduced through the anus and advanced to the terminal ileum, with identification of the appendiceal orifice and IC valve. The colonoscopy was somewhat difficult due to a tortuous colon. The patient tolerated the procedure well. The quality of the bowel preparation was good. The ileocecal valve and the appendiceal orifice were photographed. Scope In: 8:36:46 AM Scope Withdrawal Time 0 hours 6 minutes 26 seconds Scope Out: 8:48:38 AM Total Procedure Duration Time 0 hours 11 minutes 52 seconds Findings: Hemorrhoids were found on perianal exam. A few diverticula were found in the sigmoid colon. The sigmoid colon was moderately tortuous. The exam was otherwise without abnormality. Impression: - Hemorrhoids found on perianal exam. - Diverticulosis in the sigmoid colon. - Tortuous colon. - The examination was otherwise normal. - No specimens collected. Recommendation: - Discharge patient to home. - Resume previous diet. - Continue present medications. - Repeat colonoscopy in 5 years for surveillance. Procedure Code(s): --- Professional --- 49111, Colonoscopy, flexible; diagnostic, including collection of specimen(s) by brushing or washing, when performed (separate procedure) Diagnosis Code(s): --- Professional --- Z86.010, Personal history of colonic polyps K64.9, Unspecified hemorrhoids K57.30, Diverticulosis of large intestine without perforation or abscess without bleeding Q43.8, Other specified congenital malformations of intestine CPT copyright 2021 [employer]. All rights reserved. The codes documented in this report are preliminary and upon lens inserter review may be revised to meet current compliance requirements. Kumar Mixon MD 12/04/2023 8:54:04 AM This report has been signed electronically. Number of Addenda: 0 Note Initiated On: 12/04/2023 8:23 AM
--- NOTE | 2023-12-04 08:54 | OP.CCLET_ITS ---
12/04/2023 Ashkan Ortiz Md Re : Colonoscopy procedure for Juhi Rossi Dear Angel This procedure was performed on Monday, December 04, 2023. My impressions and recommendations are as follows: Impressions : - Hemorrhoids found on perianal exam. - Diverticulosis in the sigmoid colon. - Tortuous colon. - The examination was otherwise normal. - No specimens collected. Recommendations : - Discharge patient to home. - Resume previous diet. - Continue present medications. - Repeat colonoscopy in 5 years for surveillance. My findings are described in the full procedure note, which is enclosed. If I can be of further assistance, please feel free to contact me at Doctor phone number(s): Work: . Sincerely, Kumar Mixon MD 12/04/2023 8:54:04 AM This report has been signed electronically.
== END 2023-12-04 09:45 | disposition home or self-care (01) ==
LOC: EN 07:33 → AC 07:33
PROVIDERS: PCP Family Medicine; Referring Provider Family Medicine; Visit Provider Surgery
PROC: 0DJD8ZZ Inspection of Lower Intestinal Tract, Via Natural or Artificial Opening Endoscopic (ICD-10-PCS; CPT 45378; principal; 2023-12-04 08:25)
DX: K57.30 Diverticulosis of large intestine without perforation or abscess without bleeding (principal); Z86.010 Personal history of colon polyps; E78.5 Hyperlipidemia, unspecified; K21.9 Gastro-esophageal reflux disease without esophagitis; J45.909 Unspecified asthma, uncomplicated; K64.4 Residual hemorrhoidal skin tags
CPT/HCPCS: 45378; J7120

== ENCOUNTER → 2024-10-15 | Outpatient (CLI) | payer MEDICARE, SELFPAY ==
[2018-02-18 09:07] VITALS: BMI 23.1
== END | disposition home or self-care (01) ==
LOC: LABSPEC 15:41
PROVIDERS: PCP Family Medicine; Referring Provider Nurse Practitioner Women's Health; Visit Provider Nurse Practitioner Women's Health
DX: N89.8 Other specified noninflammatory disorders of vagina (principal)
CPT/HCPCS: 87070; 87205

== ENCOUNTER 2024-12-05 13:47 | Emergency (ER) | payer MEDICARE, SELFPAY ==
[2018-02-18 09:07] VITALS: BMI 23.1
[2024-12-05 13:48] VITALS: BP 139/68; PULSE 88; RESP 16; TEMP 36.9; O2SAT 98
[2024-12-05 13:51] VITALS: BMI 21.9
--- NOTE | 2024-12-05 14:12 | EKG12_ITS ---
Test Reason : CP Blood Pressure : */* mmHG Vent. Rate : 80 BPM Atrial Rate : 80 BPM P-R Int : 146 ms QRS Dur : 74 ms QT Int : 342 ms P-R-T Axes : 77 50 45 degrees QTcB Int : 394 ms Normal sinus rhythm Normal ECG Confirmed by DARREN FERNANDES, NOLVIA ([id number]), news assignment editor AMAYA TRIPATHI ([id number]) on 12/12/2024 12:38:36 PM Referred By: Yasmin Yeboah Confirmed By: NOLVIA BANKS MD
--- NOTE | 2024-12-05 14:13 | ED.VIS.CHEST ---
HPI History of Present Illness Chief Complaint: Chest Pain Informant: patient Narrative Narrative: 79-year-old female has been having seasonal allergies all spring and flareup of her asthma, she saw pulmonary today for this, states that her heart rate was fast in the office and so the nurse practitioner ordered an EKG to be done, has not been done yet, she was says that she was given the option to come to the ER and so she preferred to do that. She says she has been having chest tightness off-and-on. Oftentimes associated with her asthma and wheezing but sometimes not. She states symptoms are intermittent. The duration varies. She cannot give me an estimation of how long the episodes last even in the last day or 2. She states today when her heart rate was fast, she does not think it was due to albuterol/nebulizer use. She did not feel any palpitations. She felt a little lightheaded. She states she just did not feel well today and felt a little off but states her asthma is doing well today. She denies any leg pain or swelling. No pleuritic chest discomfort. She did not feel anything else during that time at her appointment when her heart rate was fast. She does not feel any different right now and her heart rate is not fast on the monitor, in the 80s. Patient says she follows with cardiology as well because of mitral valve prolapse. She is on verapamil for that. [facility] Medical History Wears glasses History of steroid therapy Easy bruising Gastric reflux Non-smoker Chronic cough Leg cramps History of Holter monitoring History of stress test History of echocardiogram Cardiology follow-up encounter History of irregular heartbeat Cancer of left breast Sigmoid diverticulum Paroxysmal supraventricular tachycardia Nonrheumatic mitral (valve) prolapse Hyperlipidemia Fibroids Personal history of colonic polyps Seasonal allergies Arthritis Asthma Home Medications ?Medication ?Instructions ?Recorded ?Last Taken ?Type Lactobacillus acidophilus 10 mg PO QDAY supplement 07/23/17 06/18/23 History (Acidophilus capsule) montelukast 10 mg tablet 10 mg PO QHS allergies 07/23/17 12/04/24 History (Singulair) sour aviles extract 1,000 mg 1,000 mg PO DAILY supplement 07/23/17 12/05/24 History capsule (Tart Aviles Extract) verapamil 120 mg tablet,extended 120 mg PO QHS blood pressure 07/23/17 12/04/24 History release (Calan SR) fluticasone 250 mcg-salmeterol 50 1 inh inhalation BID asthma 01/28/19 06/19/23 History mcg/dose blistr powdr for inhalation (Advair Diskus) vitamin K2 45 mcg capsule 45 mcg PO DAILY 03/28/21 12/05/24 History calcium 500 mg (as 1 tab PO DAILY 06/24/21 12/05/24 History carbonate)-vitamin D3 3.125 mcg (125 unit) tablet glucosamine [id number] 1 tab PO DAILY 06/24/21 06/18/23 History adriana 1,500 mg-400 unit-100 mg tablet (Glucosamine Daily Complex) meloxicam 15 mg tablet 15 mg PO DAILY 12/08/21 12/05/24 History omeprazole 40 mg capsule,delayed 40 mg PO DAILY 01/30/23 12/05/24 History release tamoxifen 20 mg tablet 20 mg PO DAILY 06/15/23 12/05/24 History multivitamin (Daily Multi-Vitamin 1 tab PO DAILY 06/18/23 12/05/24 History tablet) elderberry fruit 200 mg capsule 200 mg PO DAILY 11/28/23 Unknown History fesoterodine 8 mg tablet,extended 8 mg PO DAILY 11/28/23 Unknown History release 24 hr gabapentin 100 mg capsule 300 - 600 mg PO QHS 11/28/23 12/04/24 History albuterol sulfate 90 mcg/actuation 2 inh inhalation Q4H PRN shortness 10/01/24 Unknown Rx breath activated powder inhaler of breath or wheezing #1 ea (ProAir RespiClick) glucosamine-chondroitin 250 mg-200 1 tab PO DAILY 12/05/24 12/05/24 History mg tablet (Osteo Bi-Flex) levocetirizine 5 mg tablet (24HR 5 mg PO DAILY 12/05/24 12/05/24 History Allergy Relief) loratadine 10 mg tablet 10 mg PO QHS 12/05/24 12/04/24 History nystatin 100,000 unit/mL oral 5 ml PO TID #60 mL 12/05/24 12/05/24 Rx suspension omega-3 acid ethyl esters 1 gram 1 cap PO DAILY 12/05/24 12/05/24 History capsule pravastatin 40 mg tablet 40 mg PO QHS 12/05/24 12/04/24 History prednisone 20 mg tablet 20 mg PO QDAY #10 tabs 12/05/24 12/05/24 Rx zolpidem 5 mg tablet 5 mg PO QHS insomnia 12/05/24 Unknown History Allergy/AdvReac Type Severity Reaction Status Date / Time codeine Allergy Severe Verified 12/05/24 14:00 cyclobenzaprine (From Allergy Severe Verified 12/05/24 14:00 Flexeril) Penicillins Allergy Severe rash Verified 12/05/24 14:00 pineapple Allergy Severe Verified 12/05/24 14:00 nirmatrelvir (From Paxlovid) Allergy Anaphylaxis Verified 12/05/24 14:00 ritonavir (From Paxlovid) Allergy Anaphylaxis Verified 12/05/24 14:00 Sulfa (Sulfonamide AdvReac Mild tingling Verified 12/05/24 14:00 Antibiotics) in lips an tongue Family History Father Cancer Hyperlipidemia Throat cancer Pulmonary embolism Mother Heart disease Hyperlipidemia Throat cancer Pulmonary embolism Aunt Hyperlipidemia Throat cancer Pulmonary embolism Surgical History History of shoulder replacement History of esophagogastroduodenoscopy (EGD) History of colonoscopy History of lumpectomy of left breast History of foot surgery History of hysterectomy History of appendectomy Social History Smoking Status: Never smoker second hand exposure: No alcohol intake: never substance use type: does not use caffeine: No what type of physical activity do you participate in: walking frequency: 5-6 times per week seatbelt use: always do you feel safe at home: Yes additional social history: - Don Patient and are both retired ROS ROS ED Constitutional Constitutional ED: Reports malaise; Denies chills or fever(s) Eyes Eyes: Denies change in vision or diplopia ENT ENT ED: Reports nasal congestion and rhinorrhea; Denies ear pain or sore throat Cardiovascular Cardiovascular: Reports as per HPI and lightheadedness; Denies palpitations, racing heartbeat or syncope Respiratory/Chest Respiratory/Chest: Reports chest tightness; Denies cough or dyspnea Gastrointestinal Gastrointestinal: Denies abdominal pain, diarrhea, nausea or vomiting Genitourinary Genitourinary ED: Denies dysuria or hematuria Musculoskeletal Musculoskeletal: Denies back pain or neck pain Integumentary Denies abscess or rash Neurologic Neurologic: Denies headache(s), paresthesias or weakness Psychiatric Psychiatric: Denies anxiety or suicidal thoughts EXAM Physical Exam Const Vital Signs: 12/05/24 13:48 12/05/24 14:00 12/05/24 14:12 Temperature 98.5 F Temperature Source Oral Pulse Rate 88 Respiratory Rate 16 Respiratory Effort Normal Blood Pressure 139/68 H Blood Pressure Mean 91 Pulse Ox 98 Oxygen Delivery Method Room Air Room Air 12/05/24 14:48 12/05/24 15:29 12/05/24 16:00 Temperature Temperature Source Pulse Rate 82 78 73 Respiratory Rate 16 16 16 Respiratory Effort Blood Pressure 134/71 H 134/63 H Blood Pressure Mean 92 86 Pulse Ox 96 98 Oxygen Delivery Method Room Air Room Air Room Air 12/05/24 17:00 12/05/24 17:21 Temperature 98 F Temperature Source Pulse Rate 72 88 Respiratory Rate 14 12 Respiratory Effort Blood Pressure 131/62 H 131/62 H Blood Pressure Mean 85 85 Pulse Ox 99 100 Oxygen Delivery Method Room Air Positive well nourished and well developed Constitutional Narrative: Well-appearing in no distress General Appearance ED: well developed and NAD HEENT Reports moist mucous membranes normocephalic and atraumatic Eyes PERRL and EOMs intact bilaterally Neck full ROM and supple Resp normal respiratory effort and clear to auscultation bilaterally Cardio regular rate, regular rhythm and no murmurs Rate: Negative for tachycardic GI non-tender and non-distended Auscultation: normoactive bowel sounds Palpation: soft Back/Spine no CVA tenderness General Back: other FROM Extremity normal to inspection General Extremety ED: Negative for edema, pulses abnormal or tenderness General Extremity: Negative for edema or pulses abnormal Neuro oriented x3, CN's II-XII intact bilaterally and no sensory deficits noted Sensorium / Orientation: awake and alert Motor Exam: strength 5/5 throughout Psych mental status grossly normal Skin no rashes or lesions noted and no wounds MDM MDM MDM Narrative Medical decision making narrative: Patient's EKG is normal, 2 sequential troponin measurements were 20 followed by 19, reassuring. The rest of her labs are noted and unremarkable. Two-view chest x-ray my interpretation is normal radiology in agreement. Patient had no tachycardia here or other symptoms. I think she is stable to be discharged home and follow-up as an outpatient. Lab Data Attestation: I reviewed the patient's lab results. Labs: Laboratory Results - last 24 hr 12/05/24 12/05/24 12/05/24 14:15 15:05 16:23 WBC 10.8 RBC 4.33 Hgb 11.8 L Hct 35.5 L MCV 82.0 MCH 27.3 MCHC 33.2 RDW Std Deviation 49.6 H RDW Coeff of Jerry 16.5 H Plt Count 320 MPV 8.9 Immature Gran % (Auto) 0.500 Neut % (Auto) 66.0 Lymph % (Auto) 20.7 [place] % (Auto) 6.5 Eos % (Auto) 5.8 H Baso % (Auto) 0.5 Absolute Neuts (auto) 7.1 Absolute Lymphs (auto) 2.22 Nucleated RBC % 0 Platelet Estimate ADEQUATE Polychromasia 1+ Anisocytosis 1+ Sodium 130 L Potassium 4.5 Chloride 97 L Carbon Dioxide 21.3 Anion Gap 12 BUN 25 H Creatinine 1.07 Estim Creat Clear Calc 41.22 L Est GFR (MDRD) Non-Af 53 L BUN/Creatinine Ratio 22.9 H Glucose 109 H Calcium 8.8 Troponin T High Sens 20 H Troponin T Hi Sens 2 Hr 19 H Radiography Diagnostic Testing: Clinical Impression(s) from Imaging Studies Chest X-Ray 12/05/24 15:15 IMPRESSION: No Acute Findings. Reading Location: [facility] Rhythm Strip Rhythm Strip: Sinus Rhythm Rate: 84 Ectopy: PVC(s) (Occasional) EKG Initial EKG: Attestation: I personally reviewed and interpreted this EKG as follows: Interpretation: Sinus Rhythm and No Acute Injury Pattern Comments: Nml axis & intervals; nml EKG Discharge Plan Triage Chief Complaint: Chest Pain ED Provider: Hudson Hernandez Dx/Rx/DC Orders Clinical Impression: Tachycardia, Asthma, Allergic rhinitis, Intermittent chest pain Instructions: ED Chest Pain, Uncertain Cause Prescriptions: No Action verapamil [Calan SR] 120 mg tablet extended release 120 mg PO QHS montelukast [Singulair] 10 mg tablet 10 mg PO QHS Lactobacillus acidophilus [Acidophilus] capsule 10 mg PO QDAY sour aviles extract [Tart Aviles Extract] 1,000 mg capsule 1,000 mg PO DAILY fluticasone propion-salmeterol [Advair Diskus] 250-50 mcg/dose blister with device 1 inh INHALATION BID vitamin K2 45 mcg capsule 45 mcg PO DAILY calcium carbonate-vitamin D3 500 mg(1,250mg) -125 unit tablet 1 tab PO DAILY [id number] serr [Glucosamine Daily Complex] 1,500-400-100 mg-unit-mg tablet 1 tab PO DAILY Rx Instructions: give after food/meal meloxicam 15 mg tablet 15 mg PO DAILY omeprazole 40 mg capsule,delayed release(DR/EC) 40 mg PO DAILY Patient Comments: take 1 capsule by mouth once daily tamoxifen 20 mg tablet 20 mg PO DAILY ProAir RespiClick 90 mcg/actuation aerosol powdr breath activated 2 inh inhalation Q4H PRN (Reason: shortness of breath or wheezing) Qty: 1 11RF prednisone 20 mg tablet 20 mg PO QDAY Qty: 10 0RF Rx Instructions: Take 2 tablets daily for 4 days then 1 tablet daily for 2 days. nystatin 100,000 unit/mL suspension 5 ml PO TID Qty: 60 0RF Rx Instructions: swish and swallow multivitamin [Daily Multi-Vitamin] Tablet 1 tab PO DAILY gabapentin 100 mg capsule 300 - 600 mg PO QHS Patient Comments: PT STATES THAT SHE IS CURRENTLY TAKING 400MG AT BEDTIME. fesoterodine 8 mg tablet extended release 24 hr 8 mg PO DAILY elderberry fruit 200 mg capsule 200 mg PO DAILY pravastatin 40 mg tablet 40 mg PO QHS zolpidem 5 mg tablet 5 mg PO QHS Patient Comments: PT STATES SHE IS TAKING 1/2 TAB AT BEDTIME. levocetirizine [24HR Allergy Relief] 5 mg tablet 5 mg PO DAILY omega-3 acid ethyl esters 1 gram capsule 1 cap PO DAILY Patient Comments: PT STATES SHE TAKES WHEN SHE REMEMBERS APROXIMATELY 4 DAYS A WEEK. glucosamine-chondroitin [Osteo Bi-Flex] 250-200 mg tablet 1 tab PO DAILY loratadine 10 mg tablet 10 mg PO QHS Primary Care Provider: Shola Jordan Referrals: Sadaf Lara PA [Med Staff - Adv Practice Prof] - Print Language: Chinese Disposition Disposition: Home, Self Care Discharge Date/Time: 12/05/24 17:21
[2024-12-05 14:48] VITALS: PULSE 82; RESP 16
--- NOTE | 2024-12-05 15:15 | RAD_ITS ---
PROCEDURE: CHEST 1 VIEW (PORTABLE) 12/05/2024 REASON FOR EXAM: CHEST TIGHTNESS TECHNIQUE: Frontal view of the chest. COMPARISON: Chest radiograph 07/10/2023. FINDINGS: Hardware: Partially visualized right reverse shoulder arthroplasty. Heart: The heart size is normal. Lungs: Findings of mild emphysema. No focal consolidation, pleural effusion or pneumothorax. Bones: Degenerative changes are identified within the thoracic spine. Other: Surgical clips overlying the lower left chest. RAD/Chest 1 View (Portable) IMPRESSION: No Acute Findings. Reading Location: [facility]
[2024-12-05 15:26] LABS: Troponin T High Sensitivity 20 ng/L (<=14)
[2024-12-05 15:29] VITALS: BP 134/71; PULSE 78; RESP 16; O2SAT 96
[2024-12-05 15:32] LABS: Anion Gap 12 (5-15); BUN 25 mg/dL (4-19); BUN/Creat Ratio 22.9 RATIO (10-20); Calcium,Total 8.8 mg/dL (7.6-11.0); Carbon Dioxide 21.3 mmol/L (21.0-32.0); Chloride 97 mmol/L (98-108); Creatinine, Serum 1.07 mg/dL (0.70-1.20); EST Glomerular Filtration Rate 53 (>60); Estimated Creatinine Clearance 41.22 ml/min (50-250); Glucose 109 mg/dL (70-99); Potassium 4.5 mmol/L (3.3-5.1); Sodium Level 130 mmol/L (133-145)
[2024-12-05 15:34] LABS: Troponin T High Sens 2 HR 19 ng/L (<=14)
[2024-12-05 16:00] VITALS: BP 134/63; PULSE 73; RESP 16; O2SAT 98
[2024-12-05 16:32] LABS: Absolute Lymphocyte Count 2.22 X10^3/uL (0.83-4.51); Absolute Neutrophil Count 7.1 X10^3/uL (2.0-7.7); Basophil# 0.05 X10^3/uL; Basophil% 0.5 % (0-1); Eosinophil# 0.62 X10^3/uL; Eosinophils% 5.8 % (0-5); Hematocrit 35.5 % (37-47); Hemoglobin 11.8 g/dL (12.0-15.0); Lymphocyte # 2.22 X10^3/ul (0.83-4.51); Lymphocyte % 20.7 % (19-41); Mean Corp Hgb Conc 33.2 g/dL (32-36); Mean Corpuscular Hgb 27.3 pg (27.0-32.0); Mean Platelet Vol. 8.9 fl (6.2-12.0); Monocyte% 6.5 % (0-10); NRBC Flagged by Analyzer 0 % (0-5); Neutrophil # 7.11 X10^3/uL (2.7-7.7); POSITIVE MORPHOLOGY YES; Platelet Count 320 K/mm3 (150-450); RBC Distribution Width CV 16.5 % (11.6-14.6); RBC Distribution Width SD 49.6 fl (35.1-43.9); Red Blood Count 4.33 M/mm3 (4.2-5.4); White Blood Count 10.8 K/mm3 (4.4-11.0)
[2024-12-05 17:00] VITALS: BP 131/62; PULSE 72; RESP 14; O2SAT 99
[2024-12-05 17:13] LABS: Differential Indicated SCAN CRITERIA MET
[2024-12-05 17:15] LABS: Anisocytosis 1+; Platelet Estimate ADEQUATE (ADEQ); Polychromasia 1+
[2024-12-05 17:21] VITALS: BP 131/62; PULSE 88; RESP 12; TEMP 36.6; O2SAT 100
== END 2024-12-05 17:21 | disposition home or self-care (01) ==
PROVIDERS: Emergency Provider Emergency Medicine; Visit Provider Emergency Medicine
DX: R00.0 Tachycardia, unspecified (principal); R07.89 Other chest pain; J45.909 Unspecified asthma, uncomplicated; I34.1 Nonrheumatic mitral (valve) prolapse; E78.5 Hyperlipidemia, unspecified; Z79.899 Other long term (current) drug therapy
CPT/HCPCS: 71045; 80048; 84484; 85025; 93005; 99284; A4216

== ENCOUNTER → 2024-12-25 | Outpatient (CLI) | payer MEDICARE, SELFPAY ==
[2018-02-18 09:07] VITALS: BMI 23.1
--- NOTE | 2024-12-25 13:38 | ECHOD_ITS ---
Reason For Study Reason For Study: PALPITATIONS, MVP Procedure This was a 2D Doppler, Color Flow transthoracic echocardiogram. Exam performed in department. Left Ventricle Normal LV size. Left ventricular systolic function is normal. The left ventricular ejection fraction is 65 %. No regional wall motion abnormalities noted. Right Ventricle Normal RV size. Normal systolic function. Atria Normal left atrium. Normal right atrium. Mitral Valve Normal mitral valve. Tricuspid Valve Normal tricuspid valve. Aortic Valve Trisinus/trileaflet aortic valve. Pulmonic Valve Normal pulmonic valve. Great Vessels Normal sized aortic root. The pulmonary artery is normal size. Normal inferior vena cava. Pericardium/Pleural No pericardial effusion. MMode/2D Measurements & Calculations LVIDd: 4.2 cm IVSd: 0.71 cm Ao root diam: 3.0 cm LVIDs: 2.6 cm LVPWd: 0.94 cm RVDd: 2.9 cm FS: 36.8 % LAV(MOD-bp): 42.4 ml LA A4 area: 14.4 cm2 LA dimension(2D): 3.4 cm LAV(MOD-bp) Indexed: 25.1 ml/m2 LAV(MOD-sp2): 40.1 ml LAV(MOD-sp4): 40.8 ml TAPSE: 2.1 cm RA A4 area: 13.7 cm2 Time Measurements MV dec time: 0.23 sec Doppler Measurements & Calculations MV E max isidro: 57.7 cm/sec Lat Peak E' Isidro: 5.4 cm/sec Med Peak E' Isidro: 6.3 cm/sec MV A max isidro: 75.2 cm/sec E/E' lat: 10.7 E/E' med: 9.1 MV E/A: 0.77 MV V2 max: 74.4 cm/sec MV P1/2t max isidro: 61.5 cm/sec Ao V2 max: 88.8 cm/sec MV max P.2 mmHg MV P1/2t: 48.8 msec Ao max P.2 mmHg MV V2 mean: 40.5 cm/sec MV dec slope: 368.8 cm/sec2 Ao V2 mean: 63.0 cm/sec MV mean P.76 mmHg Ao mean P.8 mmHg MV V2 VTI: 16.5 cm MVA(P1/2t): 4.5 cm2 Ao V2 VTI: 19.6 cm AV (velocity ratio): 0.82 LV V1 max: 75.6 cm/sec PA V2 max: 73.9 cm/sec TR max isidro: 229.8 cm/sec LV V1 max P.3 mmHg PA V2 mean: 47.3 cm/sec TR max P.1 mmHg LV V1 mean P.2 mmHg LV V1 mean: 51.3 cm/sec LV V1 VTI: 16.1 cm ECHO/Echo Complete Interpretation Summary Normal LV size. Left ventricular systolic function is normal. The left ventricular ejection fraction is 65 %. The global longitudinal strain is normal. The global longitudinal strain = -21. 1 % (normal). Ordering Physician: Taqueria^Brooks^Az^^SECURITY INTELLIGENCE ANALYST, SECURITY INTELLIGENCE ANALYST-C Referring Physician: Shola Jordan Performed By: Haley Gee, BONY, RVT
== END | disposition home or self-care (01) ==
LOC: CVS 13:37
PROVIDERS: Referring Provider Nurse Practitioner Family; Visit Provider Nurse Practitioner Family
DX: I34.1 Nonrheumatic mitral (valve) prolapse (principal); R07.9 Chest pain, unspecified
CPT/HCPCS: 93306

== ENCOUNTER → 2024-12-30 | Outpatient (CLI) | payer MEDICARE, SELFPAY ==
[2018-02-18 09:07] VITALS: BMI 23.1
== END | disposition home or self-care (01) ==
PROVIDERS: Referring Provider Nurse Practitioner Family; Visit Provider Nurse Practitioner Family
DX: J45.41 Moderate persistent asthma with (acute) exacerbation (principal)
CPT/HCPCS: 94060; 94726; 94729

== ENCOUNTER → 2025-01-07 | Outpatient (CLI) | payer MEDICARE, SELFPAY ==
[2018-02-18 09:07] VITALS: BMI 23.1
== END | disposition home or self-care (01) ==
LOC: LAB 11:58
PROVIDERS: Referring Provider Urology; Visit Provider Urology
DX: R30.0 Dysuria (principal)
CPT/HCPCS: 87086; 87088

== ENCOUNTER → 2025-03-31 | Outpatient (CLI) | payer MEDICARE, SELFPAY ==
[2018-02-18 09:07] VITALS: BMI 23.1
[2025-04-05 01:07] LABS: Bluegrass, Kentucky <0.10 kU/L (Class 0); Cat Hair/Dander, Standard <0.10 kU/L (Class 0); Dog Epithelia <0.10 kU/L (Class 0); Elm, American White <0.10 kU/L (Class 0); Oak, White <0.10 kU/L (Class 0); Plantain, English <0.10 kU/L (Class 0); Ragweed, Short/Common <0.10 kU/L (Class 0)
[2025-04-05 04:07] LABS: Aspirgillus flavus Negative (Neg:<1:1); Aspirgillus fumigatus Negative (Neg:<1:1); Aspirgillus niger Negative (Neg:<1:1); Cytoplasmic Ab (C-ANCA) <1:20 titer (Neg:<1:20); Perinuclear Ab (P-ANCA) <1:20 titer (Neg:<1:20)
== END | disposition home or self-care (01) ==
LOC: LAB 14:04
PROVIDERS: Referring Provider Nurse Practitioner Acute Care; Visit Provider Nurse Practitioner Acute Care
DX: J30.2 Other seasonal allergic rhinitis (principal)
CPT/HCPCS: 36415; 82785; 86003; 86037; 86606

== ENCOUNTER → 2025-08-04 | Outpatient (CLI) | payer MEDICARE, SELFPAY ==
[2018-02-18 09:07] VITALS: BMI 23.1
== END | disposition home or self-care (01) ==
LOC: LABSPEC 16:06
PROVIDERS: Visit Provider Nurse Practitioner Women's Health
DX: N89.8 Other specified noninflammatory disorders of vagina (principal)
CPT/HCPCS: 87070; 87205